=== PATIENT | male | born 1935 | race Caucasian/White ===

== ENCOUNTER → 2016-12-12 | Outpatient (CLI) | payer MEDICARE ==
[~2016-12-12] MED LIST: AC325T; ACHD5005 PO; ALPR.25T PO; ALPR0.25 PO; ALPR0.2550 PO; ASP81TEC PO; ASPI-241 PO; ASPI-933 PO; CALC625T PO; CARB1TAB19 PO; CARB1TAB43 PO; CARB1TAB6 PO; CEFU250T11 PO; CLOP75TA PO; CRB100CT PO; CTLP20T PO; DOCU-161 PO; FENT1PAT11 TP; FENT1PAT60 TD; FERR-74 PO; FISH; FISH OIL 1,2001 EAC1 PO; FISH OIL PO; FISH1200 PO; FNT50TD; FNT75TD TD; FURO-125 PO; FURO20TA4 PO; FURO40TA4 PO; HYDR-31 PO; HYDR-3812 PO; HYDR-3816 PO; HYDR1CAP2 PO; IPRA3AMP INH; ISM30TCR PO; ISOS30TA3 PO; LACT20SO2 PO; LEVO500T80 PO; LVCR25100 PO; MAGN500C15 PO; MELO7.5T PO; METH-336 PO; MTP25TSR PO; MULT-608 PO; MULT-646 PO; MULT1CAP27 PO; NITR0.4T39 SL; NTR.4SL SL; ONDN4T PO; OXYB5TAB9 PO; OXYC-12 PO; OXYC-272 PO; OXYC1CAP3 PO; OXYC5TAB49 PO; PANT40TA3 PO; PARO20TA5 PO; PEG250PW PO; POLY119P5 PO; POTA8CAP9 PO; POTA8TAB6 PO; PRAM0.252 PO; PRAM0.257 PO; PRILOSEC; PRX20T PO; Polyethylene Glycol PO; RISP0.253 PO; RISP1TAB2 PO; RIVA15TA PO; RIVA1PAT TD; RIVA1PAT13 TP; RIVA1PAT9 TD; RIVA20TA PO; ROPI1TAB PO; ROPI1TAB40 PO; SENN-1 PO; SMV20T PO; TAMS0.4C2 PO; WARF2.5T PO; WARF5TAB PO; WRF2.5T PO; WRF5T PO; [UNRECOGNIZED DRUG - CODE] PO
--- OUTSIDE RECORDS SUMMARY | 2016-12-12 11:38 | XMS REPORT | Continuity of Care Document ---
Author Author [facility] Organization [facility] Address Unknown Phone Unavailable Care Team Providers Care Dairy Nutritionist Name Role Phone GERRY JANE MD PCP Insurance Providers Payer Name Policy Number Subscriber Name Relationship Wps Medicare [id number] Sravan Pruitt 20 Self / Same As Patient Blue Cross [facility] Supp [id number] Sravan Pruitt Self / Same As Patient Advance Directives Directive Response Recorded Date/Time Advance Directives Yes 07/11/16 8:56am Health Care Power of Industrial Psychology Teacher Y Celeste Pruitt/ 07/11/16 8:56am Organ Donor Yes 07/11/16 8:56am Resuscitation Status Full Code 07/11/16 8:56am Chief Complaint and Reason for Visit Chief Complaint AMS -? ALEXYS Reason for Visit Chronic atrial fibrillation Elevated Troponin Pneumonia Renal insufficiency Problems Active Problems Medical Problem Onset Date Status AGITATION--POSSIBLE NARCOTIC WITHDRAWL Unknown Acute Abrasion Unknown Acute Agitation Unknown Acute Atrial fibrillation Unknown Acute CHF Unknown Acute Chest pain Unknown Acute Chest pain Unknown Acute Chest pain Unknown Acute Chronic anticoagulation Unknown Acute Chronic atrial fibrillation Unknown Acute Elevated Troponin Unknown Acute Elevated Troponin Unknown Acute Fracture of calcaneus, left, closed Unknown Acute Hemoptysis Unknown Acute Hyperactive Unknown Acute Hyperglycemia Unknown Acute Insomnia Unknown Acute Nausea and vomiting Unknown Acute Parkinson disease Unknown Acute Parkinson disease Unknown Acute Pneumonia Unknown Acute Renal insufficiency Unknown Acute Medications Current Home Medications Medication Dose Units Route Directions Days/Qty Instructions Start Date Carbidopa/Levodopa 1 Ea 1.5 Tab Oral Three Times A Day 30MIN BEFORE LUNCH, SUPPER, AND AT HS 12/03/06 Tamsulosin Hcl 0.4 Mg 0.4 Mg Oral Daily@1800 02/22/16 Alprazolam 0.25 Mg 0.25 Mg Oral Four Times Daily as needed for Anxiety 02/22/16 Sennosides/Docusate Sodium 1 Each 2 Tab Oral Twice A Day MORNING AND NOON 06/19/16 Oxybutynin Chloride 5 Mg 5 Mg Oral Bedtime 06/19/16 Multivits,Th W-Fe,Other Min 1 Each 1 Tab Oral Daily@1200 06/20/16 Calcium Polycarbophil 625 Mg 625 Mg Oral Daily@1200 06/20/16 Rivastigmine 1 Each 13.3 Mg Topical Daily 06/20/16 Fentanyl 1 Each 100 Mcg Topical Every 72 Hours 06/20/16 Furosemide 20 Mg 20 Mg Oral Daily 06/20/16 Potassium Chloride 8 Meq 8 Meq Oral Daily 06/20/16 Paroxetine Hcl 20 Mg 20 Mg Oral Daily@1200 06/20/16 Pramipexole Di-Hcl 0.25 Mg 0.25-0.5 Mg Oral Bedtime as needed for Restless Legs 06/20/16 Hydrocodone/Acetaminophen 1 Each 1-2 Tab Oral Every 6 Hours as needed for Pain 06/20/16 Rivaroxaban 20 Mg 20 Mg Oral Daily@1800 07/11/16 Carbidopa/Levodopa 1 Each 2 Tab Oral Daily 07/11/16 Ipratropium/Albuterol Sulfate (Duoneb) 3 Ml 3 Ml Inhalation Respiratory Every Four Hours 30 Days 07/16/16 Risperidone 0.25 Mg 0.25 Mg Oral Twice A Day 30 Days 07/16/16 Lactulose 20 Gm/30 Ml 10 Gm Oral Twice A Day 30 Days 07/16/16 Pantoprazole Sodium 40 Mg 40 Mg Oral Daily@0700 30 Days 07/16/16 Past Home Medications Medication Directions Ordered Status Fentanyl 1 Ea Patch, 12/03/06 Discontinued [Prilosec] Cap, 12/03/06 Discontinued Acetaminophen 325 Mg Tablet, 12/03/06 Discontinued Acetaminophen/Hydrocodone Bitart 1 Ea Tab, 1 - 2 Tab Oral Qid Prn 12/03/06 Discontinued Alprazolam 0.25 Mg Tablet, 1 Tab Oral Twice Daily And Prn 07/30/10 Discontinued Aspirin 325 Mg Tablet.dr, 325 Mg Oral Daily 07/30/10 Discontinued Citalopram Hydrobromide 20 Mg Tablet, 60 Mg Oral Daily 07/30/10 Discontinued Ropinirole Hcl 1 Mg Tablet, 1 Mg Oral Daily 07/30/10 Discontinued Meloxicam 7.5 Mg Tablet, 7.5 Mg Oral Daily 07/30/10 Discontinued Tamsulosin Hcl 0.4 Mg Cap.sr.24h, 0.4 Mg Oral Daily 07/30/10 Discontinued Fish Oil/Fat No.8/Hrb Comb.137 1,200 Mg Capsule, 1200 Mg Oral Daily 07/30/10 Discontinued Multivitamins 1 Tab Tablet, 1 Tab Oral Daily 07/30/10 Discontinued Nitroglycerin 0.4 Mg Subl, 0.4 Mg Sublingual As Needed 07/30/10 Discontinued Olanzapine 2.5 Mg Tab, 2.5 Mg Oral Daily 07/30/10 Discontinued Oxycodone Hcl/Acetaminophen 1 Each Tablet, 1 Each Oral Every 6 Hours as needed 07/30/10 Discontinued Fentanyl 1 Ea Patch, 75 Mcg Transderm Every 72 Hours 08/01/10 Discontinued Ondansetron Hcl 4 Mg Tab, 4 Mg Oral Every 4HRS as needed 08/01/10 Discontinued Oxycodone Hcl/Acetaminophen 1 Each Capsule, 1 Each Oral Every 4HRS as needed 08/01/10 Discontinued Metoprolol Succinate (Metoprolol Er 25MG) 25 Mg Tab, 25 Mg Oral Daily Discontinued Simvastatin 20 Mg Tab, 20 Mg Oral Bedtime 08/04/10 Discontinued Paroxetine Hcl 20 Mg Tablet, 40 Mg Oral Daily 10/07/10 Discontinued [place]-3 Fatty Acids/Fish Oil 1 Each Capsule, 1 Each Oral 10/07/10 Discontinued [Fish] , 10/07/10 Discontinued [Fish] , 10/07/10 Discontinued [Fish Oil] , 1400 Mg Oral Daily 10/07/10 Discontinued Acetaminophen/Hydrocodone Bitart (Lorcet-Hd) 1 Each Capsule, 1 - 2 Each Oral Every 6 Hours as needed 10/07/10 Discontinued Docusate Sodium 100 Mg Capsule, 100 Mg Oral As Needed 10/07/10 Discontinued Polyethylene Glycol 1 Ea Pack, 1 Ea Oral Bedtime 10/07/10 Discontinued Clopidogrel Bisulfate 75 Mg Tablet, 75 Mg Oral Daily 03/14/11 Discontinued Oxycodone Hcl 5 Mg Tablet, 5 Mg Oral Every 4HRS as needed 03/16/11 Discontinued Carbidopa/Levodopa 1 Each Tab.rapdis, 0.5 Tab Oral Four Times Daily 03/24/12 Discontinued Alprazolam 0.25 Mg Tab.rapdis, 1 Tab Oral Twice Daily And Prn 03/24/12 Discontinued Nitroglycerin 0.4 Mg Subl, 0.4 Mg Sublingual As Needed 03/24/12 Discontinued Alprazolam 0.25 Mg Tablet, 0.5 Mg Oral Bedtime 12/23/12 Discontinued Alprazolam 0.25 Mg Tablet, 0.25 Mg Oral Daily 12/23/12 Discontinued Furosemide (Lasix) 40 Mg Tablet, 40 Mg Oral Daily 12/23/12 Discontinued Isosorbide Mononitrate 30 Mg Tab, 30 Mg Oral Daily@0630 12/23/12 Discontinued Ropinirole Hcl 1 Mg Tablet, 1 Mg Oral Bedtime as needed 12/23/12 Discontinued Aspirin 81 Mg Tabec, 81 Mg Oral Bedtime 12/26/12 Discontinued Cefuroxime Axetil (Ceftin) 250 Mg Tablet, 250 Mg Oral Twice A Day 12/26/12 Discontinued Rivaroxaban 15 Mg Tablet, 15 Mg Oral Daily 12/26/12 Discontinued Warfarin Sodium 2.5 Mg Tablet, 1 Each Oral Daily 09/26/13 Discontinued Carbamazepine 100 Mg Chew, 100 Mg Oral Twice A Day 09/26/13 Discontinued Acetaminophen/Hydrocodone Bitart 1 Each Tablet, 1 Each Oral Every 6 Hours as needed for Pain 11/17/13 Discontinued Warfarin Sodium 5 Mg Tablet, 1.25 Mg Oral Daily 11/17/13 Discontinued Rivastigmine Tartrate 4.6 Mg Patch, 4.6 Mg Transderm Daily 12/07/13 Discontinued Warfarin Sodium 5 Mg Tablet, 5 Mg Oral Fr@18 12/07/13 Discontinued Warfarin Sodium 2.5 Mg Tablet, 2.5 Mg Oral [place]@18 12/07/13 Discontinued Warfarin Sodium 5 Mg Tablet, 5 Mg Oral Mon/Sat11/02/14 Discontinued Warfarin Sodium 2.5 Mg Tablet, 2.5 Mg Oral Sun/e/Sat/Soraya/Sat 11/02/14 Discontinued Oxycodone Hcl/Acetaminophen 1 Each Tablet, 1-2 Each Oral Q4-6H Prn as needed for Pain 11/02/14 Discontinued Pramipexole Di-Hcl 0.25 Mg Tablet, 0.25 Mg Oral Bedtime 05/27/15 Discontinued Hydrocodone Bit/Acetaminophen 1 Tab Tablet, 1 Tab Oral Every 4HRS as needed for Pain 05/27/15 Discontinued [Polyethylene Glycol] 17 Gm Pack, 17 Gm Oral Twice A Day 05/28/15 Discontinued Oxycodone Hcl/Acetaminophen 1 Tab Tablet, 1 Tab Oral Every 4HRS as needed for Pain 05/28/15 Discontinued Tamsulosin Hcl 0.4 Mg Cap.er.24h, 0.4 Mg Oral Daily 12/07/15 Discontinued Warfarin Sodium 2.5 Mg Tablet, 2.5 Mg Oral Daily 12/07/15 Discontinued Hydrocodone/Acetaminophen 1 Each Tablet, 1 Each Oral Every 6 Hours 12/07/15 Discontinued Fentanyl 1 Each Patch.td72, 100 Mcg Transderm Every 72 Hours 02/22/16 Discontinued Rivastigmine 4.6 Mg Patch, 4.6 Mg Transderm Daily 02/22/16 Discontinued Pramipexole Di-Hcl 0.25 Mg Tablet, 0.25 Mg Oral Bedtime 02/22/16 Discontinued Polyethylene Glycol 3350 119 Gm Powder, 17 Gm Oral Twice A Day as needed for Constipation 02/22/16 Discontinued Rivaroxaban 20 Mg Tablet, 20 Mg Oral Daily@1800 02/22/16 Discontinued Multivitamin 1 Each Capsule, 1 Each Oral Daily 02/22/16 Discontinued Methylcellulose 500 Mg Tablet, 500 Mg Oral Daily 02/22/16 Discontinued Potassium Chloride 8 Meq Tablet.er, 8 Meq Oral Daily 06/19/16 Discontinued Furosemide 20 Mg Tablet, 20 Mg Oral Daily 06/19/16 Discontinued Carbidopa/Levodopa 1 Each Tablet, 2 Tab Oral Daily 06/20/16 Discontinued Isosorbide Mononitrate (Imdur) 30 Mg Tab.er.24h, 30 Mg Oral Daily 06/20/16 Discontinued Levofloxacin 500 Mg Tablet, 500 Mg Oral Daily 06/22/16 Discontinued Social History Social History Problem Response Recorded Date/Time Alcohol Use Occasionally Uses 06/19/2016 8:00pm Recreational Drug Use No 06/19/2016 8:00pm Recent Foreign Travel No 07/11/2016 9:05am Recent Infectious Disease Exposure No 07/11/2016 9:05am Hospitalization with Isolation Unknown 07/16/2016 11:04am Sexually Transmitted Disease No 07/11/2016 8:58am HIV/AIDS No 07/11/2016 8:58am Smoking Status Former Smoker 07/11/2016 8:59am Do you dip or chew tobacco? No 12/07/2015 7:38pm Type Used Cigarettes 07/16/2016 11:04am Recent Hopitalizations Yes 07/11/2016 8:58am Sexually Transmitted Disease No 07/11/2016 8:58am Hospitalization with Isolation Unknown 07/16/2016 11:04am Query Response Start Date Stop Date Smoking Status Former Smoker 12/02/1969 Hospital Discharge Instructions Patient Instructions Physician Instructions New, Converted or Re-Newed RX: Other Discharge Diet: Low Sodium Diet, Cardiac Diet Activity as Tolerated: Yes Plan of Care Discharge Date 07/16/16 10:40am Disposition 09 ADMITTED INPATIENT Instructions/Education Provided Bacterial Pneumonia (GEN) Prescriptions See Medication Section Care Plan and Goals See Discharge Instructions Section Functional Status Query Response Date Recorded Patient Orientation Normal For Age July 14, 2016 8:54am Patient Orientation Person Place Eyes Open July 16, 2016 11:04am Comprehension Ability Understands Concepts July 16, 2016 8:40am Allergies, Adverse Reactions, Alerts Allergen Type Severity Reaction Status Last Updated Morphine Allergy Unknown PT TAKES HYDROCODONE @ HOME Active 06/21/16 Gabapentin Allergy Unknown Active 12/24/06 Immunizations No immunization records. Vital Signs Acute Vital Signs Vital Response Date/Time Temperature (Fahrenheit) 97.2 degrees F (97.6 - 99.5) 07/16/2016 6:00am Temperature (Calculated Celsius) 36.41406 degrees C (36.4 - 37.5) 07/16/2016 6:00am Temperature Source Tympanic 07/16/2016 6:00am Pulse Rate (adult) 60 bpm (60 - 90) 07/16/2016 6:00am Respiratory Rate 20 bpm (12 - 24) 07/16/2016 6:00am O2 Sat by Pulse Oximetry 98 % (88 - 100) 07/16/2016 8:40am Blood Pressure 114/56 mm Hg 07/16/2016 6:00am Blood Pressure Mean 75 mm Hg 07/16/2016 6:00am Pain Numeric Pain Scale 0-No Pain 07/16/2016 8:40am Pain Intensity 8 07/12/2016 9:58pm Height (Feet) 5 feet 07/11/2016 9:05am Height (Inches) 5.00 inches 07/11/2016 9:05am Height (Calculated Centimeters) 165.265224 cm 07/11/2016 9:05am Weight (Pounds) 156 pounds 07/16/2016 6:00am Weight (Ounces) 5.0 oz 07/16/2016 6:00am Weight (Calculated Grams) 43268.158 gm 07/16/2016 6:00am Weight (Calculated Kilograms) 70.653339 kilograms 07/16/2016 6:00am Calculated BMI 20.8 07/11/2016 9:05am Capillary Refill Capillary Refill Less Than 3 Seconds 07/16/2016 8:40am Results Laboratory Results Test Name Result Units Flags Reference Collection Date/Time Result Date/ Time Comments White Blood Count 10.0 10^3/uL 4.3-11.0 06/21/2016 5:33am 06/21/2016 5: 55am Red Blood Count 3.38 10^6/uL L 4.35-5.85 06/21/2016 5:33am 06/21/2016 5: 55am Hemoglobin 9.7 G/DL L 13.3-17.7 06/21/2016 5:33am 06/21/2016 5:55am Hematocrit 30 % L 40-54 06/21/2016 5:33am 06/21/2016 5:55am Mean Corpuscular Volume 90 FL 80-99 06/21/2016 5:3306/21/2016 5: 55am Mean Corpuscular Hemoglobin 29 PG 25-34 06/21/2016 5:33am 06/21/2016 5: 55am Mean Corpuscular Hemoglobin Concent 32 G/DL 32-36 06/21/2016 5:33 5:55am Red Cell Distribution Width 15.7 % H 10.0-14.5 06/21/2016 5:33am 2015 5:55am Platelet Count 247 10^3/uL 130-400 06/21/2016 5:33am 06/21/2016 5:55am Mean Platelet Volume 9.5 FL 7.4-10.4 06/21/2016 5:33am 06/21/2016 5: 55am Neutrophils (%) (Auto) 78 % H 42-75 06/21/2016 5:33am 06/21/2016 5:55am Lymphocytes (%) (Auto) 12 % 12-44 06/21/2016 5:06/21/2016 5:55am Monocytes (%) (Auto) 8 % 0-12 06/21/2016 5:06/21/2016 5:55am Eosinophils (%) (Auto) 2 % 0-10 06/21/2016 5:06/21/2016 5:55am Basophils (%) (Auto) 0 % 0-10 06/21/2016 5:06/21/2016 5:55am Neutrophils # (Auto) 7.8 X 10^3 1.8-7.8 06/21/2016 5:06/21/2016 5: 55am Lymphocytes # (Auto) 1.2 X 10^3 1.0-4.0 06/21/2016 5:06/21/2016 5: 55am Monocytes # (Auto) 0.8 X 10^3 0.0-1.0 06/21/2016 5:06/21/2016 5: 55am Eosinophils # (Auto) 0.2 10^3/uL 0.0-0.3 06/21/2016 5:06/21/2016 5 :55am Basophils # (Auto) 0.0 10^3/uL 0.0-0.1 06/21/2016 5:06/21/2016 5: 55am Neutrophils % (Manual) 79 % 06/20/2016 4:52am 06/20/2016 5:43am Band Neutrophils 9 % 06/20/2016 4:52am 06/20/2016 5:43am Lymphocytes % (Manual) 6 % 06/20/2016 4:52am 06/20/2016 5:43am Monocytes % (Manual) 6 % 06/20/2016 4:52am 06/20/2016 5:43am Blood Morphology Comment NORMAL 06/20/2016 4:52am 06/20/2016 5: 43am Prothrombin Time 15.2 SEC H 12.2-14.7 06/19/2016 5:05pm 06/19/2016 5: 30pm INR Comment 1.2 0.8-1.4 06/19/2016 5:05pm 06/19/2016 5:30pm INTERPRETIVE DATA SUGGESTED THERAPEUTIC RANGE FOR INR'S: VENOUS THROMBOSIS, PULMONARY EMBOLISM, OR PREVENTION OF SYSTEMIC EMBOLISM (EG. IN ATRIAL FIBRILLATION): 2.0 - 3.0 MECHANICAL PROSTHETIC HEART VALVES: 2.5 - 3.5* *NOTE: INR'S UP TO 4.5 MAY BE NECESSARY IN SELECTED GROUPS OF HIGH RISK PATIENTS. [employer] CONSENSUS CONFERENCE ON ANTITHROMBOTIC THERAPY (2000). Activated Partial Thromboplast Time 32 SEC 24-35 06/19/2016 5:05pm 5:30pm Sodium Level 138 MMOL/L 135-145 06/21/2016 5:3306/21/2016 6:16am Potassium Level 3.8 MMOL/L 3.6-5.0 06/21/2016 5:3306/21/2016 6:16am Chloride Level 106 MMOL/L 98-107 06/21/2016 5:3306/21/2016 6:16am Carbon Dioxide Level 22 MMOL/L 21-32 06/21/2016 5:3306/21/2016 6: 16am Anion Gap 10 MMOL/L 5-14 06/21/2016 5:3306/21/2016 6:16am Blood Urea Nitrogen 22 MG/DL H 7-18 06/21/2016 5:3306/21/2016 6:16am Creatinine 1.06 MG/DL 0.60-1.30 06/21/2016 5:3306/21/2016 6:16am BUN/Creatinine Ratio 06/21/2016 5:3306/21/2016 6:16am Estimat Glomerular Filtration Rate > 60 06/21/2016 5:332015 6:16am GFR INTERPRETIVE DATA UNITS FOR ESTIMATED GFR (eGFR): mL/min/1.73 M2 REFERENCE RANGE FOR ESTIMATED GFR (eGFR) eGFR NORMAL eGFR >60 MODERATELY DECREASED eGFR 30-59 SEVERLY DECREASED eGFR 15-29 KIDNEY FAILURE <15 (OR DIALYSIS) Glucose Level 110 MG/DL H 70-105 06/21/2016 5:3306/21/2016 6:16am Calcium Level 9.0 MG/DL 8.5-10.1 06/21/2016 5:3306/21/2016 6:16am Total Bilirubin 0.4 MG/DL 0.1-1.0 06/19/2016 5:05pm 06/19/2016 5:33pm Alkaline Phosphatase 95 U/L 40-136 06/19/2016 5:05pm 06/19/2016 5:33pm Aspartate Amino Transf (AST/SGOT) 31 U/L 5-34 06/19/2016 5:05pm 2015 5:33pm Alanine Aminotransferase (ALT/SGPT) 13 U/L 0-55 06/19/2016 5:05pm 06/19 5:33pm Troponin I < 0.30 NG/ML <0.30 06/19/2016 5:05pm 06/19/2016 5:45pm Total Protein 8.2 G/DL 6.4-8.2 06/19/2016 5:05pm 06/19/2016 5:33pm Albumin 4.7 G/DL H 3.2-4.5 06/19/2016 5:05pm 06/19/2016 5:33pm Pending Laboratory Results Test Name Collection Date/Time Microbiology Results Procedure Source Result Collection Date/Time Result Date/Time Blood Culture Peripheral, Iv/Heplock No growth 06/19/2016 6:30pm 2015 2:04pm Blood Culture Peripheral, Lt Ac No growth 06/19/2016 6:35pm 06/20/2016 2: 04pm Pending Microbiology Results Procedure Source Collection Date/Time Procedures Procedure Status Date Provider(s) Tracing only of electrocardiogram Completed 06/19/16 CLAUDIA WEN MD Color Doppler echocardiography Active 07/11/16 KENNEDY JAMES MD Color Doppler echocardiography Active 07/11/16 KENNEDY JAMES MD Color Doppler echocardiography Active 07/11/16 KENNEDY JAMES MD Encounters Encounter Location Arrival/Admit Date Discharge/Depart Date Attending Provider Discharged Inpatient [facility] 07/11/16 5:45am 10:40am DIANNE CURTIS MD Registered Clinic [facility] 07/02/16 3:00pm GERRY JANE MD Discharged Inpatient [facility] 06/19/16 6:24pm 3:35pm GERRY JANE MD Recent Diagnosis Chronic atrial fibrillation Elevated Troponin Pneumonia Renal insufficiency
--- NOTE | 2016-12-12 14:05 | Diagnostic Imaging Report ---
PA and lateral views of the chest. INDICATION: Dyspnea. FINDINGS: There is interstitial thickening in the lungs which may relate to minimal vascular congestion with probably a chronic component. There is no alveolar edema. The heart size is not significantly enlarged. No effusion or pneumothorax. The mediastinum and janell appear unremarkable. There is a pacemaker with a single lead seen. There are sternotomy wires and post CABG changes also noted. IMPRESSION: Prominent interstitial markings may relate to minimal vascular congestion. Dictated by: Dictated on workstation # [id number]
== END ==
LOC: RT 11:34
PROVIDERS: ATTEND Internal Medicine Critical Care Medicine
DX: R06.09 Other forms of dyspnea (principal); R06.83 Snoring
CPT/HCPCS: 71020; 94060; 94726; 94729

== ENCOUNTER 2017-02-27 05:40 | Outpatient (CLI) | payer MEDICARE ==
[~2017-02-27] VITALS: Ht 170.2 cm; Wt 65.8 kg
[~2017-02-27 05:40] MED LIST changes: -ASPI-933 PO; -FERR-74 PO; -MAGN500C15 PO; -NITR0.4T39 SL; -RIVA1PAT9 TD
== END 2017-02-27 10:08 ==
LOC: PREOP 05:40
PROVIDERS: ATTEND Internal Medicine
DX: Z01.818 Encounter for other preprocedural examination (principal); D64.9 Anemia, unspecified

== ENCOUNTER 2017-03-01 09:05 | Day surgery (SDC) | payer MEDICARE ==
[~2017-03-01] VITALS: Ht 170.2 cm; Wt 65.8 kg
--- NOTE | 2017-03-01 09:09 | Pre-Op Note & Conscious Sedat ---
Pre-Operative Progress Note H&P Reviewed The H&P was reviewed, patient examined and no changes noted. Date H&P Reviewed: Mar 01, 2017 Conscious Sedation Pre-Proced ASA Class: 3 Airway Mallampati Classification: (point hope ira appropriate class) I. II. III, IV Lungs Heart ASA score ASA 1: a normal healthy patient ASA 2: a patient with a mild systemic disease (mid diabetes, controlled hypertension, obesity ASA 3: a patient with a severe systemic disease that limits activity (angina , COPD, prior Myocardial infarction) ASA 4: a patient with an incapacitating disease that is a constant threat to life (CHF, renal failure) ASA 5: a moribund patient not expected to survive 24 hrs. (ruptured aneurysm) ASA 6: a declared brain patient whose organs are being harvested. For emergent operations, add the letter E after the classification Grade 2 Sedation Plan: Analgesia, Amnesia, Plan communicated to team members, Discussed options with patient/fam, Discussed risks with patient/fam Note The patient is an appropriate candidate to undergo the planned procedure, sedation, and anesthesia. The patient immediately re-assessed prior to indication. GERRY JANE MD Mar 01, 2017 09:09
[2017-03-01 09:15] VITALS: BP 130/76
[2017-03-01] MEDS ORDERED: LIDOCAINE JELLY 2% (XYLOCAINE) 5 ML TUBE MM PRN (09:15)
[2017-03-01] MEDS ORDERED: D5 LR IV SOLUTION 1,000 ML IV PRN (09:15)
[2017-03-01] MEDS ORDERED: HURRICAINE EXT TUBE (BENZOCAINE) XX PRN (09:15)
[2017-03-01] MEDS ORDERED: FLUMAZENIL (ROMAZICON) 0.1 MG/ML 5 ML VIAL INJ PRN (09:15)
[2017-03-01] MEDS ORDERED: MIDAZOLAM 2 MG/2 ML (VERSED) VIAL IVP PRN (09:15)
[2017-03-01] MEDS ORDERED: NALOXONE 0.4 MG/ML 1 ML (NARCAN) VIAL IVP PRN (09:15)
[2017-03-01] MEDS ORDERED: LIDOCAINE JELLY 2% (XYLOCAINE) 5 ML TUBE ONE (10:10)
[2017-03-01] MEDS ORDERED: MIDAZOLAM 2 MG/2 ML (VERSED) VIAL ONE ×2 (10:11)
[2017-03-01] MEDS ORDERED: fentaNYL INJECTION 100 MCG/2 ML AMP ONE (10:11)
[2017-03-01] MEDS ORDERED: HURRICAINE EXT TUBE (BENZOCAINE) ONE (10:11)
[2017-03-01] MEDS ORDERED: ASPI-933 PO (10:23)
[2017-03-01] MEDS ORDERED: NITR0.4T39 SL (10:23)
[2017-03-01] MEDS ORDERED: MAGN500C15 PO (10:23)
[2017-03-01] MEDS ORDERED: FERR-74 PO (10:23)
[2017-03-01] MEDS ORDERED: RIVA1PAT9 TD (10:23)
[2017-03-01] MEDS ORDERED: ISOS30TA3 PO (10:23)
[2017-03-01] MEDS: fentaNYL INJECTION 100 MCG/2 ML AMP IVP PRN ×2 (10:30→10:35)
[2017-03-01 11:15] VITALS: BP 137/73
[2017-03-01 11:35] VITALS: BP 134/77
[2017-03-01 11:50] VITALS: BP 134/77
--- NOTE | 2017-03-04 08:53 | OPERATIVE REPORT ---
PROCEDURE PHYSICIAN: GERRY JANE DATE OF PROCEDURE: 03/01/2017 EGD performed for diagnostic purposes due to history of iron deficiency anemia and the patient on antiplatelet therapy, as well as anticoagulant therapy in the form of Xarelto for paroxysmal antral fibrillation. PROCEDURE: The patient was placed in left lateral left lateral decubitus position. The endoscope was inserted in the oral cavity under direct visualization, the esophagus was intubated. The scope was passed down the esophagus into stomach, and second portion of the duodenum. Careful inspection was made as the endoscope was withdrawn. The patient tolerated the procedure well. FINDINGS: Proximal and midesophagus were unremarkable. There was a small hiatal hernia present. There was some mild erythema noted at the Z line without evidence for ulceration. No blood was noted in the upper GI tract. The cardia and the fundus were unremarkable. There has been a partial antrectomy present. There was some marginal erosions present. A photograph was taken. There is also marginal hyperemia compatible with alkaline bile reflux. Biopsies were obtained and submitted for histopathology. The duodenal antral anastomosis was otherwise unremarkable. The duodenal segment is unremarkable with no evidence for duodenal erythema or ulceration. No blood was noted in the upper GI tract. Retroflex views of the cardia were unremarkable. ASSESSMENT: 1. Small hiatal hernia is present, without evidence for erosive esophagitis. 2. Postsurgical changes of an antrectomy are present with marginal erosions and evidence for alkaline bile reflux. Biopsies are pending for histopathology and Helicobacter evaluation. The patient was advised to hold Xarelto until Saturday. He will resume iron and continue to monitor his stool, although he was warned that color become darker due to iron therapy. He will be returning to the office in one month with repeat CBC. Job ID: [id number] Dictated Date: 03/01/2017 16:48:49 Biomedical Manager Date: 03/04/2017 08:44:09 / [email or web address]
--- NOTE | 2017-03-06 09:01 | HISTORY AND PHYSICAL ---
DATE OF ADMISSION: 03/01/2017 DICTATING PHYSICIAN: Dr. Meek. REASON FOR ADMISSION: EGD Mr. Hoyos is a 81-year-old white male who was seen in the office on 02/14/2017. This gentleman who is somewhat frail, elderly male with a history of coronary artery disease. He reports that he had been feeling increasingly weak with increased shortness of breath. He denied chest discomfort, palpitations, or lightheadedness. He has a history of paroxysmal atrial fibrillation, coronary artery disease and Parkinson's disease. He also has had a past history of anemia and silent peptic ulcer disease. Had not been aware of any melena or restless leg syndrome. His symptoms have not been under as good control as of late despite taking Mirapex nightly. We did send off blood studies and his hemoglobin was 9.4. His MCV was no lower at 85 and iron parameters were compatible with iron deficiency anemia. His ferritin was low at 13 and iron saturation was low at 14. His BNP level was stable at 256. PHYSICAL EXAMINATION: Revealed a mildly pale white male, who did not appear to be in acute distress. VITAL SIGNS: Blood pressure was 144/68. CHEST: Clear. CV: Revealed a regular rate and rhythm without S3 or S4. No significant murmurs were noted. ABDOMEN: Soft, supple without mass, organomegaly or tenderness. EXTREMITIES: Reveal no cyanosis, clubbing, or edema. ASSESSMENT: For further evaluation of iron deficiency anemia with a past history of peptic ulcer disease, the patient was set-up for EGD evaluation on the . The patient was offered earlier appointment on the but they had preferred a later date. Job ID: [id number] Dictated Date: 02/21/2017 15:37:00 Principal Bioinformatics Specialist Date: 02/22/2017 06:14:35/[email or web address]
--- OUTSIDE RECORDS SUMMARY | 2017-03-24 08:00 | XMS REPORT | Continuity of Care Document ---
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 SEPSIS WITHOUT SEPTIC SHOCK 07/16/2016 DIANNE CURTIS MD Ot S37.30XA UNSPECIFIED INJURY OF URETHRA, INITIAL E 07/16/2016 DIANNE CURTIS MD Ot T43.4X5A ADVERSE EFFECT OF BUTYROPHEN/ THIOTHIXEN 07/16/2016 DIANNE CURTIS MD Ot X58.XXXA EXPOSURE TO OTHER SPECIFIED FACTORS, INI 07/16/2016 DIANNE CURTIS MD Ot Y92.230 PATIENT ROOM IN HOSPITAL PLACE 07/16/2016 DIANNE CURTIS MD Ot Z79.01 WHISKEY REGAUGER (CURRENT) USE OF ANTICOAGULANT 07/16/2016 DIANNE CURTIS MD Ot Z87.891 PERSONAL HISTORY OF NICOTINE DEPENDENCE 07/16/2016 DIANNE CURTIS MD Ot Z95.0 PRESENCE OF CARDIAC PACEMAKER 07/16/2016 DIANNE CURTIS MD Ot Z95.1 PRESENCE OF AORTOCORONARY BYPASS GRAFT 07/18/2016 BIBIANA PARRA MD E Ot F03.90 UNSPECIFIED DEMENTIA WITHOUT BEHAVIORAL 07/18/2016 BIBIANA PARRA MD Ot G20 PARKINSON'S DISEASE 07/18/2016 BIBIANA PARRA MD E Ot I10 ESSENTIAL (PRIMARY) HYPERTENSION 07/18/2016 BIBIANA PARRA MD E Ot 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 07/18/2016 BIBIANA PARRA MD Ot I25.5 ISCHEMIC CARDIOMYOPATHY 07/18/2016 BIBIANA PARRA MD Ot I48.1 PERSISTENT ATRIAL FIBRILLATION 07/18/2016 BIBIANA PARRA MD Ot I48.2 CHRONIC ATRIAL FIBRILLATION 07/18/2016 BIBIANA PARRA MD E Ot 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) HEART FAIL 07/18/2016 BIBIANA PARRA MD E Ot M19.90 UNSPECIFIED OSTEOARTHRITIS, UNSPECIFIED 07/18/2016 BIBIANA PARRA MD E Ot M48.06 SPINAL STENOSIS, LUMBAR REGION 07/18/2016 BIBIANA PARRA MD E Ot R06.89 OTHER ABNORMALITIES OF BREATHING 07/18/2016 BIBIANA PARRA MD E Ot R13.10 DYSPHAGIA, UNSPECIFIED 07/18/2016 VELVET PARRA MDIC E Ot Z95.0 PRESENCE OF CARDIAC PACEMAKER 07/18/2016 BIBIANA PARRA MD E Ot Z95.1 PRESENCE OF AORTOCORONARY BYPASS GRAFT 07/18/2016 BIBIANA PARRA MD E Ot Z99.81 DEPENDENCE ON SUPPLEMENTAL OXYGEN 07/21/2016 BIBIANA PARRA MD Ot F03.90 UNSPECIFIED DEMENTIA WITHOUT BEHAVIORAL 07/21/2016 BIBIANA PARRA MD Ot G20 PARKINSON'S DISEASE 07/21/2016 BIBIANA PARRA MD Ot I10 ESSENTIAL (PRIMARY) HYPERTENSION 07/21/2016 BIBIANA PARRA MD E Ot 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 07/21/2016 BIBIANA PARRA MD Ot I25.5 ISCHEMIC CARDIOMYOPATHY 07/21/2016 BIBIANA PARRA MD E Ot I48.1 PERSISTENT ATRIAL FIBRILLATION 07/21/2016 BIBIANA PARRA MD E Ot I48.2 CHRONIC ATRIAL FIBRILLATION 07/21/2016 BIBIANA PARRA MD E Ot 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) HEART FAIL 07/21/2016 BIBIANA PARRA MD E Ot M19.90 UNSPECIFIED OSTEOARTHRITIS, UNSPECIFIED 07/21/2016 BIBIANA PARRA MD E Ot M48.06 SPINAL STENOSIS, LUMBAR REGION 07/21/2016 BIBIANA PARRA MD E Ot R06.89 OTHER ABNORMALITIES OF BREATHING 07/21/2016 BIBIANA PARRA MD E Ot R13.10 DYSPHAGIA, UNSPECIFIED 07/21/2016 BIBIANA PARRA MD E Ot Z95.0 PRESENCE OF CARDIAC PACEMAKER 07/21/2016 BIBIANA PARRA MD E Ot Z95.1 PRESENCE OF AORTOCORONARY BYPASS GRAFT 07/21/2016 BIBIANA PARRA MD E Ot Z99.81 DEPENDENCE ON SUPPLEMENTAL OXYGEN 07/24/2016 BUCK JEAN, GERRY Chao Ot J18.9 PNEUMONIA, UNSPECIFIED ORGANISM 07/27/2016 BIBIANA PARRA MD E Ot F03.90 UNSPECIFIED DEMENTIA WITHOUT BEHAVIORAL 07/27/2016 BIBIANA PARRA MD Ot G20 PARKINSON'S DISEASE 07/27/2016 BIBIANA PARRA MD Ot I10 ESSENTIAL (PRIMARY) HYPERTENSION 07/27/2016 BIBIANA PARRA MD E Ot 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 07/27/2016 BIBIANA PARRA MD E Ot I25.5 ISCHEMIC CARDIOMYOPATHY 07/27/2016 BIBIANA PARRA MD E Ot I48.1 PERSISTENT ATRIAL FIBRILLATION 07/27/2016 BIBIANA PARRA MD E Ot I48.2 CHRONIC ATRIAL FIBRILLATION 07/27/2016 VELVET PARRA MDIC E Ot 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) HEART FAIL 07/27/2016 BIBIANA PARRA MD E Ot M19.90 UNSPECIFIED OSTEOARTHRITIS, UNSPECIFIED 07/27/2016 VELVET PARRA MDIC E Ot M48.06 SPINAL STENOSIS, LUMBAR REGION 07/27/2016 BIBIANA PARRA MD E Ot R06.89 OTHER ABNORMALITIES OF BREATHING 07/27/2016 BIBIANA PARRA MD E Ot R13.10 DYSPHAGIA, UNSPECIFIED 07/27/2016 BIBIANA PARRA MD E Ot Z95.0 PRESENCE OF CARDIAC PACEMAKER 07/27/2016 BIBIANA PARRA MD E Ot Z95.1 PRESENCE OF AORTOCORONARY BYPASS GRAFT 07/27/2016 BIBIANA PARRA MD E Ot Z99.81 DEPENDENCE ON SUPPLEMENTAL OXYGEN 07/30/2016 BIBIANA PARRA MD E Ot D63.8 ANEMIA IN OTHER CHRONIC DISEASES CLASSIF 07/30/2016 BIBIANA PARRA MD E Ot E87.5 HYPERKALEMIA 07/30/2016 VELVET PARRA MDIC E Ot F03.90 UNSPECIFIED DEMENTIA WITHOUT BEHAVIORAL 07/30/2016 BIBIANA PARRA MD E Ot F32.9 MAJOR DEPRESSIVE DISORDER, SINGLE EPISOD 07/30/2016 VELVET PARRA MDIC E Ot G20 PARKINSON'S DISEASE 07/30/2016 BIBIANA PARRA MD E Ot I10 ESSENTIAL (PRIMARY) HYPERTENSION 07/30/2016 BIBIANA PARRA MD E Ot I12.9 HYPERTENSIVE CHRONIC KIDNEY DISEASE W ST 07/30/2016 BIBIANA PARRA MD E Ot 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 07/30/2016 BIBIANA PARRA MD E Ot I25.5 ISCHEMIC CARDIOMYOPATHY 07/30/2016 BIBIANA PARRA MD E Ot I48.1 PERSISTENT ATRIAL FIBRILLATION 07/30/2016 BIBIANA PARRA MD E Ot I48.2 CHRONIC ATRIAL FIBRILLATION 07/30/2016 BIBIANA PARRA MD E Ot 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) HEART FAIL 07/30/2016 BIBIANA PARRA MD E Ot M19.90 UNSPECIFIED OSTEOARTHRITIS, UNSPECIFIED 07/30/2016 BIBIANA PARRA MD E Ot M48.06 SPINAL STENOSIS, LUMBAR REGION 07/30/2016 BIBIANA PARRA MD E Ot N18.9 CHRONIC KIDNEY DISEASE, UNSPECIFIED 07/30/2016 BIBIANA PARRA MD Ot R06.89 OTHER ABNORMALITIES OF BREATHING 07/30/2016 BIBIANA PARRA MD Ot R13.10 DYSPHAGIA, UNSPECIFIED 07/30/2016 BIBIANA PARRA MD Ot Z79.01 SENIOR CARE (CURRENT) USE OF ANTICOAGULANT 07/30/2016 BIBIANA PARRA MD Ot Z95.0 PRESENCE OF CARDIAC PACEMAKER 07/30/2016 BIBIANA PARRA MD Ot Z95.1 PRESENCE OF AORTOCORONARY BYPASS GRAFT 07/30/2016 BIBIANA PARRA MD Ot Z99.81 DEPENDENCE ON SUPPLEMENTAL OXYGEN 08/02/2016 GERRY JANE MD Ot J18.9 PNEUMONIA, UNSPECIFIED ORGANISM 08/13/2016 GERRY JANE MD Ot N39.0 URINARY TRACT INFECTION, SITE NOT SPECIF 08/13/2016 GERRY JANE MD Ot N39.0 URINARY TRACT INFECTION, SITE NOT SPECIF 08/14/2016 GERRY JANE MD Ot N39.0 URINARY TRACT INFECTION, SITE NOT SPECIF 08/28/2016 GERRY JANE MD Ot G20 PARKINSON'S DISEASE 08/31/2016 GERRY JANE MD Ot G20 PARKINSON'S DISEASE 09/03/2016 GERRY JANE MD Ot N39.0 URINARY TRACT INFECTION, SITE NOT SPECIF 09/18/2016 YE CAMACHO L CARPET BINDER Ot E78.4 OTHER HYPERLIPIDEMIA 09/18/2016 LYMAYADIYE L CARPET BINDER Ot I25.10 ATHSCL HEART DISEASE OF [place] CORONARY 09/18/2016 YE CAMACHO L CARPET BINDER Ot I42.9 CARDIOMYOPATHY, UNSPECIFIED 09/18/2016 YADI CAMACHOHER L CARPET BINDER Ot I48.2 CHRONIC ATRIAL FIBRILLATION 09/18/2016 LYMAYADIYE L CARPET BINDER Ot R06.09 OTHER FORMS OF DYSPNEA 09/19/2016 TAO JEAN FACC, ALI FACP CCDS Ot E78.4 OTHER HYPERLIPIDEMIA 09/19/2016 TAO JEAN FACC, ALI FACP CCDS Ot I25.10 ATHSCL HEART DISEASE OF [place] CORONARY 09/19/2016 TAO JEAN FACC, ALI FACP CCDS Ot I42.9 CARDIOMYOPATHY, UNSPECIFIED 09/19/2016 TAO JEAN FACC, ALI FACP CCDS Ot I48.2 CHRONIC ATRIAL FIBRILLATION 09/19/2016 TAO MD FACC, ALI FACP CCDS Ot R06.09 OTHER FORMS OF DYSPNEA 09/20/2016 YE CAMACHO CARPET BINDER Ot E78.4 OTHER HYPERLIPIDEMIA 09/20/2016 YE CAMACHO CARPET BINDER Ot I25.10 ATHSCL HEART DISEASE OF [place] CORONARY 09/20/2016 YE CAMACHO CARPET BINDER Ot I42.9 CARDIOMYOPATHY, UNSPECIFIED 09/20/2016 YE CAMACHO CARPET BINDER Ot I48.2 CHRONIC ATRIAL FIBRILLATION 09/20/2016 YE CAMACHO CARPET BINDER Ot R06.09 OTHER FORMS OF DYSPNEA 09/24/2016 TAO JEAN FACC, ALI FACP CCDS Ot E78.4 OTHER HYPERLIPIDEMIA 09/24/2016 TAO JEAN FACC, ALI FACP CCDS Ot I25.10 ATHSCL HEART DISEASE OF [place] CORONARY 09/24/2016 TAO JEAN FACC, ALI FACP CCDS Ot I42.9 CARDIOMYOPATHY, UNSPECIFIED 09/24/2016 TAO JEAN FACC, ALI FACP CCDS Ot I48.2 CHRONIC ATRIAL FIBRILLATION 09/24/2016 TAO JEAN FACC, ALI FACP CCDS Ot R06.09 OTHER FORMS OF DYSPNEA 09/29/2016 TAO ZAMANC, ALI FACP CCDS Ot E78.4 OTHER HYPERLIPIDEMIA 09/29/2016 TAO ZAMANC, ALI FACP CCDS Ot I25.10 ATHSCL HEART DISEASE OF [place] CORONARY 09/29/2016 TAO JEAN FACC, ALI FACP CCDS Ot I42.9 CARDIOMYOPATHY, UNSPECIFIED 09/29/2016 TAO ZAMANC, ALI FACP CCDS Ot I48.2 CHRONIC ATRIAL FIBRILLATION 09/29/2016 TAO JEAN FACC, ALI FACP CCDS Ot R06.09 OTHER FORMS OF DYSPNEA 10/09/2016 TAO ZAMANC, ALI FACP CCDS Ot E78.4 OTHER HYPERLIPIDEMIA 10/09/2016 TAO ZAMANC, ALI FACP CCDS Ot I25.10 ATHSCL HEART DISEASE OF [place] CORONARY 10/09/2016 TAO JEAN FACC, ALI FACP CCDS Ot I42.9 CARDIOMYOPATHY, UNSPECIFIED 10/09/2016 TAO JEAN FACC, ALI FACP CCDS Ot I48.2 CHRONIC ATRIAL FIBRILLATION 10/09/2016 TAO ZAMANC, ALI FACP CCDS Ot R06.09 OTHER FORMS OF DYSPNEA 10/15/2016 BUCK JEAN, GERRY Chao Ot G20 PARKINSON'S DISEASE 10/15/2016 BUCK JEAN, GERRY Chao Ot Z91.81 HISTORY OF FALLING 10/19/2016 TAO JEAN FAC, ALI FACP CCDS Ot E78.4 OTHER HYPERLIPIDEMIA 10/19/2016 TAO JEAN FACC, ALI FACP CCDS Ot I25.10 ATHSCL HEART DISEASE OF [place] CORONARY 10/19/2016 TAO JEAN FACC, ALI FACP CCDS Ot I42.9 CARDIOMYOPATHY, UNSPECIFIED 10/19/2016 TAO JEAN FACC, ALI FACP CCDS Ot I48.2 CHRONIC ATRIAL FIBRILLATION 10/19/2016 TAO JEAN FACC, ALI FACP CCDS Ot R06.09 OTHER FORMS OF DYSPNEA 10/31/2016 GERRY JANE MD Ot G20 PARKINSON'S DISEASE 10/31/2016 GERRY JANE MD Ot Z91.81 HISTORY OF FALLING 10/31/2016 GERRY JANE MD Ot G20 PARKINSON'S DISEASE 10/31/2016 GERRY JANE MD Ot Z91.81 HISTORY OF FALLING 11/09/2016 BAIMA, YE L CARPET BINDER Ot E78.4 OTHER HYPERLIPIDEMIA 11/09/2016 BAIMA, YE L CARPET BINDER Ot I25.10 ATHSCL HEART DISEASE OF [place] CORONARY 11/09/2016 BAIMA, YE L CARPET BINDER Ot I42.9 CARDIOMYOPATHY, UNSPECIFIED 11/09/2016 BAIMA, YE L CARPET BINDER Ot I48.2 CHRONIC ATRIAL FIBRILLATION 11/09/2016 BAIMA, YE L CARPET BINDER Ot R06.09 OTHER FORMS OF DYSPNEA 11/14/2016 BAIMA, YE L CARPET BINDER Ot E78.4 OTHER HYPERLIPIDEMIA 11/14/2016 BAIMA, YE L CARPET BINDER Ot I25.10 ATHSCL HEART DISEASE OF [place] CORONARY 11/14/2016 BAIMA, YE L CARPET BINDER Ot I42.9 CARDIOMYOPATHY, UNSPECIFIED 11/14/2016 BAIMA, YE L CARPET BINDER Ot I48.2 CHRONIC ATRIAL FIBRILLATION 11/14/2016 BAIMA, YE L CARPET BINDER Ot R06.09 OTHER FORMS OF DYSPNEA 12/13/2016 DAGMAR MCGRAW DO Ot R06.09 OTHER FORMS OF DYSPNEA 12/13/2016 DAGMAR MCGRAW DO Ot R06.83 SNORING 01/11/2017 DAGMAR MCGRAW DO Ot R06.09 OTHER FORMS OF DYSPNEA 01/11/2017 DAGMAR MCGRAW DO Ot R06.83 SNORING 01/16/2017 DAGMAR MCGRAW DO Ot R06.09 OTHER FORMS OF DYSPNEA 01/16/2017 DAGMAR MCGRAW DO Ot R06.83 SNORING 02/27/2017 TAO JEAN FAC, MAYCO ZAMANP CCDS Ot 427.31 03/01/2017 GERRY JANE MD, Ot D50.9 IRON DEFICIENCY ANEMIA, UNSPECIFIED 03/01/2017 GERRY JANE MD Ot I48.0 PAROXYSMAL ATRIAL FIBRILLATION 03/01/2017 GERRY AJNE MD, Ot K44.9 DIAPHRAGMATIC HERNIA WITHOUT OBSTRUCTION 03/01/2017 GERRY JANE MD, Ot Z79.01 WHISKEY REGAUGER (CURRENT) USE OF ANTICOAGULANT 03/01/2017 GERRY JANE MD, Ot Z79.02 SENIOR CARE (CURRENT) USE OF ANTITHROMBOTI 03/07/2017 GERRY JANE MD, Ot D50.9 IRON DEFICIENCY ANEMIA, UNSPECIFIED 03/07/2017 GERRY JANE MD Ot I48.0 PAROXYSMAL ATRIAL FIBRILLATION 03/07/2017 GERRY JANE MD, Ot K44.9 DIAPHRAGMATIC HERNIA WITHOUT OBSTRUCTION 03/07/2017 GERRY JANE MD, Ot Z79.01 WHISKEY REGAUGER (CURRENT) USE OF ANTICOAGULANT 03/07/2017 GERRY JANE MD, Ot Z79.02 WHISKEY REGAUGER (CURRENT) USE OF ANTITHROMBOTI Procedures Code Description Performed By Performed On 00.40 03/13/2011 00.66 03/13/2011 88.56 03/13/2011 37.22 11/17/2013 88.49 11/17/2013 88.56 11/17/2013 [id number] 07/12/2016 Results Test Result Range Complete blood count (CBC) with automated white blood cell (WBC) differential - 07/11/16 06:40 Blood leukocytes automated count (number/volume) 13.0 10*3/ uL 4.3-11.0 Blood erythrocytes automated count (number/volume) 3.94 10*6 /uL 4.35-5.85 Venous blood hemoglobin measurement (mass/volume) 11.3 g/dL 13.3-17.7 Blood hematocrit (volume fraction) 36 % 40-54 Automated erythrocyte mean corpuscular volume 90 [foz_us] 80-99 Automated erythrocyte mean corpuscular hemoglobin (mass per erythrocyte) 29 pg 25-34 Automated erythrocyte mean corpuscular hemoglobin concentration measurement ( mass/volume) 32 g/dL 32-36 Automated erythrocyte distribution width ratio 15.0 % 10.0-14.5 Automated blood platelet count (count/volume) 389 10*3/uL 130-400 Automated blood platelet mean volume measurement 9.2 [foz_us ] 7.4-10.4 Automated blood neutrophils/100 leukocytes 84 % 42-75 Automated blood lymphocytes/100 leukocytes 8 % 12-44 Blood monocytes/100 leukocytes 8 % 0-12 Automated blood eosinophils/100 leukocytes 0 % 0-10 Automated blood basophils/100 leukocytes 0 % 0-10 Blood neutrophils automated count (number/volume) 11.0 10*3 1.8-7.8 Blood lymphocytes automated count (number/volume) 1.0 10*3 1.0-4.0 Blood monocytes automated count (number/volume) 1.0 10*3 0.0-1.0 Automated eosinophil count 0.0 10*3/uL 0.0-0.3 Automated blood basophil count (count/volume) 0.0 10*3/uL 0.0-0.1 Comprehensive metabolic panel - 07/11/16 06:40 Serum or plasma sodium measurement (moles/volume) 140 mmol/ L 135-145 Serum or plasma potassium measurement (moles/volume) 3.8 mmol/L 3.6-5.0 Serum or plasma chloride measurement (moles/volume) 104 mmol /L 98-107 Carbon dioxide 20 mmol/L 21-32 Serum or plasma anion gap determination (moles/volume) 16 mmol/L 5-14 Serum or plasma urea nitrogen measurement (mass/volume) 27 mg/dL 7-18 Serum or plasma creatinine measurement (mass/volume) 1.33 mg /dL 0.60-1.30 Serum or plasma urea nitrogen/creatinine mass ratio 20 NRG Serum or plasma creatinine measurement with calculation of estimated glomerular filtration rate 52 NRG Serum or plasma glucose measurement (mass/volume) 246 mg/dL 70-105 Serum or plasma calcium measurement (mass/volume) 9.5 mg/dL 8.5-10.1 Serum or plasma total bilirubin measurement (mass/volume) 0.4 mg/dL 0.1-1.0 Serum or plasma alkaline phosphatase measurement (enzymatic activity/volume) 89 U/L 40-136 Serum or plasma aspartate aminotransferase measurement (enzymatic activity/ volume) 33 U/L 5-34 Serum or plasma alanine aminotransferase measurement (enzymatic activity/volume ) 11 U/L 0-55 Serum or plasma protein measurement (mass/volume) 7.7 g/dL 6.4-8.2 Serum or plasma albumin measurement (mass/volume) 4.4 g/dL 3.2-4.5 Magnesium - 07/11/16 06:40 Magnesium 2.1 mg/dL 1.8-2.4 Blood manual differential performed detection - 07/11/16 06:40 Blood monocytes/100 leukocytes 10 % NRG Manual blood segmented neutrophils/100 leukocytes 80 % NRG Manual blood lymphocytes/100 leukocytes 10 % NRG Blood erythrocyte morphology finding identification NORMAL NRG THYROID STIMULATING HORMONE - 07/11/16 06:40 THYROID STIMULATING HORMONE 0.99 u[iU]/mL 0.35-4.94 Serum or plasma folate measurement (mass/volume) - 07/11/16 06:40 Serum or plasma folate measurement (mass/volume) 8.1 % 1.5-24.0 Cyanocobalamin measurement - 07/11/16 06:40 Vitamin B12 747 pg/mL 200-1000 Methicillin resistant Staphylococcus aureus (MRSA) screening culture - 08:05 Methicillin resistant Staphylococcus aureus (MRSA) screening culture NEG NRG Arterial blood gas measurement - 07/11/16 08:25 Blood pCO2 30 mm[Hg] 35-45 Blood pO2 60 mm[Hg] 79-93 Arterial blood bicarbonate measurement (moles/volume) 20 mmol/L 23-27 Arterial blood base excess by calculation -3.3 mmol/L -2.5-2.5 Arterial blood oxygen saturation measurement 93 % 94-100 * Inhaled oxygen flow rate 4 NRG Arterial blood pH measurement with patient temperature correction 7.44 7.37-7.43 Arterial blood carbon dioxide, total measurement (moles/volume) 21.1 mmol/L 21.0-31.0 Body site RT RADIAL NRG Assessment of wrist artery patency prior to arterial puncture YES-POS NRG Setting of ventilation mode NO NRG Measurement of body temperature 97.2 NRG Blood lactic acid measurement (moles/volume) - 07/11/16 08:32 Blood lactic acid measurement (moles/volume) 5.0 mmol/L 0.5-2.0 Serum or plasma troponin i.cardiac measurement (mass/volume) - 07/11/16 08:32 Serum or plasma troponin i.cardiac measurement (mass/volume) 0.58 ng/mL <0.30 Serum or plasma lithium measurement (moles/volume) - 07/11/16 08:32 BNP level 279.8 pg/mL <100.0 PT panel in platelet poor plasma by coagulation assay - 07/11/16 08:32 Prothrombin time (PT) in platelet poor plasma by coagulation assay 19.6 s 12.2-14.7 INR in platelet poor plasma or blood by coagulation assay 1.7 0.8-1.4 Activated partial thromboplastin time (aPTT) in platelet poor plasma bycoagulation assay - 07/11/16 08:32 Activated partial thromboplastin time (aPTT) in platelet poor plasma bycoagulation assay 31 s 24-35 Bacterial blood culture - 07/11/16 08:32 Bacterial blood culture NG NRG Bacterial blood culture - 07/11/16 08:40 Bacterial blood culture NG NRG Complete urinalysis with reflex to culture - 07/11/16 10:25 Urine color determination ELVIA NRG Urine clarity determination SLIGHTLY CLOUDY NRG Urine pH measurement by test strip 5 5- 9 Specific gravity of urine by test strip 1.030 1.016-1.022 Urine protein assay by test strip, semi-quantitative 3+ NEGATIVE Urine glucose detection by automated test strip 3+ NEGATIVE Erythrocytes detection in urine sediment by light microscopy 4+ NEGATIVE Urine ketones detection by automated test strip 1+ NEGATIVE Urine nitrite detection by test strip NEGATIVE NEGATIVE Urine total bilirubin detection by test strip NEGATIVE NEGATIVE Urine urobilinogen measurement by automated test strip (mass/volume) NORMAL NORMAL Urine leukocyte esterase detection by dipstick NEGATIVE NEGATIVE Automated urine sediment erythrocyte count by microscopy (number/high power field) RARE NRG Automated urine sediment leukocyte count by microscopy (number/high power field ) NONE NRG Bacteria detection in urine sediment by light microscopy NEGATIVE NRG Squamous epithelial cells detection in urine sediment by light microscopy RARE NRG Crystals detection in urine sediment by light microscopy NONE NRG Casts detection in urine sediment by light microscopy PRESENT NRG Mucus detection in urine sediment by light microscopy NEGATIVE NRG Complete urinalysis with reflex to culture NO NRG Granular casts detection in urine sediment by light microscopy 2-5 NRG Urine drug screening test - 07/11/16 10:25 Urine acetaminophen detection by screening method POSITIVE NEGATIVE Urine phencyclidine detection by screening method NEGATIVE NEGATIVE Urine benzodiazepines detection by screening method POSITIVE NEGATIVE Urine cocaine detection NEGATIVE NEGATIVE Urine amphetamines detection by screening method NEGATIVE NEGATIVE Urine methamphetamine detection by screening method NEGATIVE NEGATIVE Urine cannabinoids detection by screening method NEGATIVE NEGATIVE Urine opiates detection by screening method POSITIVE NEGATIVE Urine barbiturates detection NEGATIVE NEGATIVE Screening urine tricyclic antidepressants detection NEGATIVE NEGATIVE Urine methadone detection by screening method NEGATIVE NEGATIVE Bacterial urine culture - 07/11/16 10:25 Bacterial urine culture NG NRG Arterial blood gas measurement - 07/11/16 11:23 Blood pCO2 31 mm[Hg] 35-45 Blood pO2 79 mm[Hg] 79-93 Arterial blood bicarbonate measurement (moles/volume) 21 mmol/L 23-27 Arterial blood base excess by calculation -2.8 mmol/L -2.5-2.5 Arterial blood oxygen saturation measurement 97 % 94-100 * Inhaled oxygen flow rate 4 NRG Arterial blood pH measurement with patient temperature correction 7.44 7.37-7.43 Arterial blood carbon dioxide, total measurement (moles/volume) 21.6 mmol/L 21.0-31.0 Body site RT RADIAL NRG Assessment of wrist artery patency prior to arterial puncture YES-POS NRG Setting of ventilation mode NO NRG Measurement of body temperature 98.4 NRG Complete blood count (CBC) with automated white blood cell (WBC) differential - 07/11/16 12:10 Blood leukocytes automated count (number/volume) 9.8 10*3/ uL 4.3-11.0 Blood erythrocytes automated count (number/volume) 3.82 10*6 /uL 4.35-5.85 Venous blood hemoglobin measurement (mass/volume) 11.0 g/dL 13.3-17.7 Blood hematocrit (volume fraction) 34 % 40-54 Automated erythrocyte mean corpuscular volume 90 [foz_us] 80-99 Automated erythrocyte mean corpuscular hemoglobin (mass per erythrocyte) 29 pg 25-34 Automated erythrocyte mean corpuscular hemoglobin concentration measurement ( mass/volume) 32 g/dL 32-36 Automated erythrocyte distribution width ratio 15.0 % 10.0-14.5 Automated blood platelet count (count/volume) 324 10*3/uL 130-400 Automated blood platelet mean volume measurement 9.6 [foz_us ] 7.4-10.4 Automated blood neutrophils/100 leukocytes 86 % 42-75 Automated blood lymphocytes/100 leukocytes 9 % 12-44 Blood monocytes/100 leukocytes 5 % 0-12 Automated blood eosinophils/100 leukocytes 0 % 0-10 Automated blood basophils/100 leukocytes 0 % 0-10 Blood neutrophils automated count (number/volume) 8.4 10*3 1.8-7.8 Blood lymphocytes automated count (number/volume) 0.9 10*3 1.0-4.0 Blood monocytes automated count (number/volume) 0.5 10*3 0.0-1.0 Automated eosinophil count 0.0 10*3/uL 0.0-0.3 Automated blood basophil count (count/volume) 0.0 10*3/uL 0.0-0.1 Whole blood basic metabolic panel - 07/11/16 12:10 Serum or plasma sodium measurement (moles/volume) 144 mmol/ L 135-145 Serum or plasma potassium measurement (moles/volume) 4.5 mmol/L 3.6-5.0 Serum or plasma chloride measurement (moles/volume) 106 mmol /L 98-107 Carbon dioxide 25 mmol/L 21-32 Serum or plasma anion gap determination (moles/volume) 13 mmol/L 5-14 Serum or plasma urea nitrogen measurement (mass/volume) 26 mg/dL 7-18 Serum or plasma creatinine measurement (mass/volume) 1.17 mg /dL 0.60-1.30 Serum or plasma urea nitrogen/creatinine mass ratio 22 NRG Serum or plasma creatinine measurement with calculation of estimated glomerular filtration rate 60 NRG Serum or plasma glucose measurement (mass/volume) 165 mg/dL 70-105 Serum or plasma calcium measurement (mass/volume) 8.9 mg/dL 8.5-10.1 Serum or plasma phosphate measurement (mass/volume) - 07/11/16 12:10 Serum or plasma phosphate measurement (mass/volume) 2.7 mg/ dL 2.3-4.7 Magnesium - 07/11/16 12:10 Magnesium 2.0 mg/dL 1.8-2.4 Blood lactic acid measurement (moles/volume) - 07/11/16 12:10 Blood lactic acid measurement (moles/volume) 4.8 mmol/L 0.5-2.0 Blood lactic acid measurement (moles/volume) - 07/11/16 16:05 Blood lactic acid measurement (moles/volume) 2.9 mmol/L 0.5-2.0 Serum or plasma troponin i.cardiac measurement (mass/volume) - 07/11/16 16:05 Serum or plasma troponin i.cardiac measurement (mass/volume) 1.76 ng/mL <0.30 Capillary blood glucose measurement by glucometer (mass/volume) - 07/11/16 18: 11 Capillary blood glucose measurement by glucometer (mass/volume) 182 mg/dL 70-110 Blood lactic acid measurement (moles/volume) - 07/11/16 19:53 Blood lactic acid measurement (moles/volume) 3.4 mmol/L 0.5-2.0 Whole blood basic metabolic panel - 07/11/16 19:53 Serum or plasma sodium measurement (moles/volume) 141 mmol/ L 135-145 Serum or plasma potassium measurement (moles/volume) 4.4 mmol/L 3.6-5.0 Serum or plasma chloride measurement (moles/volume) 109 mmol /L 98-107 Carbon dioxide 19 mmol/L 21-32 Serum or plasma anion gap determination (moles/volume) 13 mmol/L 5-14 Serum or plasma urea nitrogen measurement (mass/volume) 25 mg/dL 7-18 Serum or plasma creatinine measurement (mass/volume) 1.15 mg /dL 0.60-1.30 Serum or plasma urea nitrogen/creatinine mass ratio 22 NRG Serum or plasma creatinine measurement with calculation of estimated glomerular filtration rate > NRG Serum or plasma glucose measurement (mass/volume) 182 mg/dL 70-105 Serum or plasma calcium measurement (mass/volume) 8.2 mg/dL 8.5-10.1 Blood lactic acid measurement (moles/volume) - 07/12/16 00:34 Blood lactic acid measurement (moles/volume) 2.7 mmol/L 0.5-2.0 Capillary blood glucose measurement by glucometer (mass/volume) - 07/12/16 00: 59 Capillary blood glucose measurement by glucometer (mass/volume) 166 mg/dL 70-110 Complete blood count (CBC) with automated white blood cell (WBC) differential - 07/12/16 04:08 Blood leukocytes automated count (number/volume) 10.9 10*3/ uL 4.3-11.0 Blood erythrocytes automated count (number/volume) 3.61 10*6 /uL 4.35-5.85 Venous blood hemoglobin measurement (mass/volume) 10.3 g/dL 13.3-17.7 Blood hematocrit (volume fraction) 33 % 40-54 Automated erythrocyte mean corpuscular volume 91 [foz_us] 80-99 Automated erythrocyte mean corpuscular hemoglobin (mass per erythrocyte) 29 pg 25-34 Automated erythrocyte mean corpuscular hemoglobin concentration measurement ( mass/volume) 31 g/dL 32-36 Automated erythrocyte distribution width ratio 15.6 % 10.0-14.5 Automated blood platelet count (count/volume) 279 10*3/uL 130-400 Automated blood platelet mean volume measurement 9.9 [foz_us ] 7.4-10.4 Automated blood neutrophils/100 leukocytes 90 % 42-75 Automated blood lymphocytes/100 leukocytes 4 % 12-44 Blood monocytes/100 leukocytes 6 % 0-12 Automated blood eosinophils/100 leukocytes 0 % 0-10 Automated blood basophils/100 leukocytes 0 % 0-10 Blood neutrophils automated count (number/volume) 9.9 10*3 1.8-7.8 Blood lymphocytes automated count (number/volume) 0.4 10*3 1.0-4.0 Blood monocytes automated count (number/volume) 0.6 10*3 0.0-1.0 Automated eosinophil count 0.0 10*3/uL 0.0-0.3 Automated blood basophil count (count/volume) 0.0 10*3/uL 0.0-0.1 Comprehensive metabolic panel - 07/12/16 04:08 Serum or plasma sodium measurement (moles/volume) 140 mmol/ L 135-145 Serum or plasma potassium measurement (moles/volume) 4.4 mmol/L 3.6-5.0 Serum or plasma chloride measurement (moles/volume) 111 mmol /L 98-107 Carbon dioxide 15 mmol/L 21-32 Serum or plasma anion gap determination (moles/volume) 14 mmol/L 5-14 Serum or plasma urea nitrogen measurement (mass/volume) 28 mg/dL 7-18 Serum or plasma creatinine measurement (mass/volume) 1.21 mg /dL 0.60-1.30 Serum or plasma urea nitrogen/creatinine mass ratio 23 NRG Serum or plasma creatinine measurement with calculation of estimated glomerular filtration rate 58 NRG Serum or plasma glucose measurement (mass/volume) 168 mg/dL 70-105 Serum or plasma calcium measurement (mass/volume) 8.1 mg/dL 8.5-10.1 Serum or plasma total bilirubin measurement (mass/volume) 0.8 mg/dL 0.1-1.0 Serum or plasma alkaline phosphatase measurement (enzymatic activity/volume) 60 U/L 40-136 Serum or plasma aspartate aminotransferase measurement (enzymatic activity/ volume) 153 U/L 5-34 Serum or plasma alanine aminotransferase measurement (enzymatic activity/volume ) 28 U/L 0-55 Serum or plasma protein measurement (mass/volume) 5.9 g/dL 6.4-8.2 Serum or plasma albumin measurement (mass/volume) 3.7 g/dL 3.2-4.5 Serum or plasma phosphate measurement (mass/volume) - 07/12/16 04:08 Serum or plasma phosphate measurement (mass/volume) 2.7 mg/ dL 2.3-4.7 Magnesium - 07/12/16 04:08 Magnesium 2.5 mg/dL 1.8-2.4 PT panel in platelet poor plasma by coagulation assay - 07/12/16 04:08 Prothrombin time (PT) in platelet poor plasma by coagulation assay 25.6 s 12.2-14.7 INR in platelet poor plasma or blood by coagulation assay 2.3 0.8-1.4 Activated partial thromboplastin time (aPTT) in platelet poor plasma bycoagulation assay - 07/12/16 04:08 Activated partial thromboplastin time (aPTT) in platelet poor plasma bycoagulation assay 34 s 24-35 Blood lactic acid measurement (moles/volume) - 07/12/16 04:08 Blood lactic acid measurement (moles/volume) 7.2 mmol/L 0.5-2.0 Serum or plasma lithium measurement (moles/volume) - 07/12/16 04:08 BNP level 2009.7 pg/mL <100.0 Serum or plasma troponin i.cardiac measurement (mass/volume) - 07/12/16 04:08 Serum or plasma troponin i.cardiac measurement (mass/volume) 1.14 ng/mL <0.30 Arterial blood gas measurement - 07/12/16 05:10 Blood pCO2 26 mm[Hg] 35-45 Blood pO2 102 mm[Hg] 79-93 Arterial blood bicarbonate measurement (moles/volume) 17 mmol/L 23-27 Arterial blood base excess by calculation -6.4 mmol/L -2.5-2.5 Arterial blood oxygen saturation measurement 98 % 94-100 * Inhaled oxygen flow rate 40% BIPAP NRG Arterial blood pH measurement with patient temperature correction 7.42 7.37-7.43 Arterial blood carbon dioxide, total measurement (moles/volume) 17.7 mmol/L 21.0-31.0 Body site L RAD NRG Assessment of wrist artery patency prior to arterial puncture YES-POS NRG Setting of ventilation mode NO NRG Measurement of body temperature 98.3 NRG Serum or plasma lactate measurement (moles/volume) - 07/12/16 05:44 Serum or plasma lactate measurement (moles/volume) 3.3 mmol/ L 0.5-2.0 Blood lactic acid measurement (moles/volume) - 07/12/16 08:20 Blood lactic acid measurement (moles/volume) 2.9 mmol/L 0.5-2.0 Serum or plasma lactate measurement (moles/volume) - 07/12/16 10:22 Serum or plasma lactate measurement (moles/volume) 2.5 mmol/ L 0.5-2.0 Capillary blood glucose measurement by glucometer (mass/volume) - 07/12/16 13: 30 Capillary blood glucose measurement by glucometer (mass/volume) 166 mg/dL 70-110 Blood lactic acid measurement (moles/volume) - 07/12/16 15:25 Blood lactic acid measurement (moles/volume) 3.2 mmol/L 0.5-2.0 Capillary blood glucose measurement by glucometer (mass/volume) - 07/12/16 17: 48 Capillary blood glucose measurement by glucometer (mass/volume) 119 mg/dL 70-110 Blood lactic acid measurement (moles/volume) - 07/12/16 20:01 Blood lactic acid measurement (moles/volume) 2.6 mmol/L 0.5-2.0 Blood lactic acid measurement (moles/volume) - 07/13/16 00:05 Blood lactic acid measurement (moles/volume) 2.9 mmol/L 0.5-2.0 Automated blood complete blood count (hemogram) panel - 07/13/16 04:10 Blood leukocytes automated count (number/volume) 14.9 10*3/ uL 4.3-11.0 Blood erythrocytes automated count (number/volume) 3.44 10*6 /uL 4.35-5.85 Venous blood hemoglobin measurement (mass/volume) 9.9 g/dL 13.3-17.7 Blood hematocrit (volume fraction) 31 % 40-54 Automated erythrocyte mean corpuscular volume 90 [foz_us] 80-99 Automated erythrocyte mean corpuscular hemoglobin (mass per erythrocyte) 29 pg 25-34 Automated erythrocyte mean corpuscular hemoglobin concentration measurement ( mass/volume) 32 g/dL 32-36 Automated erythrocyte distribution width ratio 15.9 % 10.0-14.5 Automated blood platelet count (count/volume) 239 10*3/uL 130-400 Automated blood platelet mean volume measurement 10.4 [foz_ us] 7.4-10.4 PT panel in platelet poor plasma by coagulation assay - 07/13/16 04:10 Prothrombin time (PT) in platelet poor plasma by coagulation assay 33.2 s 12.2-14.7 INR in platelet poor plasma or blood by coagulation assay 3.2 0.8-1.4 Activated partial thromboplastin time (aPTT) in platelet poor plasma bycoagulation assay - 07/13/16 04:10 Activated partial thromboplastin time (aPTT) in platelet poor plasma bycoagulation assay 34 s 24-35 Blood lactic acid measurement (moles/volume) - 07/13/16 04:10 Blood lactic acid measurement (moles/volume) 1.8 mmol/L 0.5-2.0 Whole blood basic metabolic panel - 07/13/16 04:10 Serum or plasma sodium measurement (moles/volume) 140 mmol/ L 135-145 Serum or plasma potassium measurement (moles/volume) 4.3 mmol/L 3.6-5.0 Serum or plasma chloride measurement (moles/volume) 106 mmol /L 98-107 Carbon dioxide 21 mmol/L 21-32 Serum or plasma anion gap determination (moles/volume) 13 mmol/L 5-14 Serum or plasma urea nitrogen measurement (mass/volume) 39 mg/dL 7-18 Serum or plasma creatinine measurement (mass/volume) 1.29 mg /dL 0.60-1.30 Serum or plasma urea nitrogen/creatinine mass ratio 30 NRG Serum or plasma creatinine measurement with calculation of estimated glomerular filtration rate 54 NRG Serum or plasma glucose measurement (mass/volume) 160 mg/dL 70-105 Serum or plasma calcium measurement (mass/volume) 8.4 mg/dL 8.5-10.1 Serum or plasma phosphate measurement (mass/volume) - 07/13/16 04:10 Serum or plasma phosphate measurement (mass/volume) 3.6 mg/ dL 2.3-4.7 Magnesium - 07/13/16 04:10 Magnesium 2.1 mg/dL 1.8-2.4 Serum or plasma lithium measurement (moles/volume) - 07/13/16 04:10 BNP level 2238.3 pg/mL <100.0 Arterial blood gas measurement - 07/13/16 05:01 Blood pCO2 37 mm[Hg] 35-45 Blood pO2 91 mm[Hg] 79-93 Arterial blood bicarbonate measurement (moles/volume) 24 mmol/L 23-27 Arterial blood base excess by calculation -0.7 mmol/L -2.5-2.5 Arterial blood oxygen saturation measurement 98 % 94-100 * Inhaled oxygen flow rate 40% NRG Arterial blood pH measurement with patient temperature correction 7.43 7.37-7.43 Arterial blood carbon dioxide, total measurement (moles/volume) 24.8 mmol/L 21.0-31.0 Body site RT RADIAL NRG Assessment of wrist artery patency prior to arterial puncture YES-POS NRG Setting of ventilation mode NO NRG Measurement of body temperature 97.2 NRG Blood lactic acid measurement (moles/volume) - 07/13/16 08:10 Blood lactic acid measurement (moles/volume) 1.7 mmol/L 0.5-2.0 Capillary blood glucose measurement by glucometer (mass/volume) - 07/13/16 11: 30 Capillary blood glucose measurement by glucometer (mass/volume) 141 mg/dL 70-110 Blood lactic acid measurement (moles/volume) - 07/14/16 00:40 Blood lactic acid measurement (moles/volume) 1.3 mmol/L 0.5-2.0 Automated blood complete blood count (hemogram) panel - 07/14/16 04:20 Blood leukocytes automated count (number/volume) 13.1 10*3/ uL 4.3-11.0 Blood erythrocytes automated count (number/volume) 3.17 10*6 /uL 4.35-5.85 Venous blood hemoglobin measurement (mass/volume) 9.1 g/dL 13.3-17.7 Blood hematocrit (volume fraction) 29 % 40-54 Automated erythrocyte mean corpuscular volume 91 [foz_us] 80-99 Automated erythrocyte mean corpuscular hemoglobin (mass per erythrocyte) 29 pg 25-34 Automated erythrocyte mean corpuscular hemoglobin concentration measurement ( mass/volume) 32 g/dL 32-36 Automated erythrocyte distribution width ratio 15.5 % 10.0-14.5 Automated blood platelet count (count/volume) 206 10*3/uL 130-400 Automated blood platelet mean volume measurement 10.4 [foz_ us] 7.4-10.4 PT panel in platelet poor plasma by coagulation assay - 07/14/16 04:20 Prothrombin time (PT) in platelet poor plasma by coagulation assay 27.9 s 12.2-14.7 INR in platelet poor plasma or blood by coagulation assay 2.6 0.8-1.4 Blood lactic acid measurement (moles/volume) - 07/14/16 04:20 Blood lactic acid measurement (moles/volume) 1.0 mmol/L 0.5-2.0 Whole blood basic metabolic panel - 07/14/16 04:20 Serum or plasma sodium measurement (moles/volume) 138 mmol/ L 135-145 Serum or plasma potassium measurement (moles/volume) 3.7 mmol/L 3.6-5.0 Serum or plasma chloride measurement (moles/volume) 101 mmol /L 98-107 Carbon dioxide 26 mmol/L 21-32 Serum or plasma anion gap determination (moles/volume) 11 mmol/L 5-14 Serum or plasma urea nitrogen measurement (mass/volume) 40 mg/dL 7-18 Serum or plasma creatinine measurement (mass/volume) 1.27 mg /dL 0.60-1.30 Serum or plasma urea nitrogen/creatinine mass ratio 31 NRG Serum or plasma creatinine measurement with calculation of estimated glomerular filtration rate 55 NRG Serum or plasma glucose measurement (mass/volume) 117 mg/dL 70-105 Serum or plasma calcium measurement (mass/volume) 8.3 mg/dL 8.5-10.1 Serum or plasma phosphate measurement (mass/volume) - 07/14/16 04:20 Serum or plasma phosphate measurement (mass/volume) 2.8 mg/ dL 2.3-4.7 Magnesium - 07/14/16 04:20 Magnesium 1.9 mg/dL 1.8-2.4 Serum or plasma aspartate aminotransferase measurement (enzymatic activity/ volume) - 07/14/16 04:20 Serum or plasma aspartate aminotransferase measurement (enzymatic activity/ volume) 148 U/L 5-34 Serum or plasma alanine aminotransferase measurement (enzymatic activity/volume ) - 07/14/16 04:20 Serum or plasma alanine aminotransferase measurement (enzymatic activity/volume ) 16 U/L 0-55 Serum or plasma lithium measurement (moles/volume) - 07/14/16 04:20 BNP level 1168.3 pg/mL <100.0 Whole blood basic metabolic panel - 07/15/16 04:30 Serum or plasma sodium measurement (moles/volume) 139 mmol/ L 135-145 Serum or plasma potassium measurement (moles/volume) 3.2 mmol/L 3.6-5.0 Serum or plasma chloride measurement (moles/volume) 95 mmol/ L 98-107 Carbon dioxide 32 mmol/L 21-32 Serum or plasma anion gap determination (moles/volume) 12 mmol/L 5-14 Serum or plasma urea nitrogen measurement (mass/volume) 31 mg/dL 7-18 Serum or plasma creatinine measurement (mass/volume) 1.25 mg /dL 0.60-1.30 Serum or plasma urea nitrogen/creatinine mass ratio 25 NRG Serum or plasma creatinine measurement with calculation of estimated glomerular filtration rate 56 NRG Serum or plasma glucose measurement (mass/volume) 109 mg/dL 70-105 Serum or plasma calcium measurement (mass/volume) 8.3 mg/dL 8.5-10.1 Magnesium - 07/15/16 04:30 Magnesium 1.8 mg/dL 1.8-2.4 Automated blood complete blood count (hemogram) panel - 07/16/16 04:30 Blood leukocytes automated count (number/volume) 8.2 10*3/ uL 4.3-11.0 Blood erythrocytes automated count (number/volume) 3.13 10*6 /uL 4.35-5.85 Venous blood hemoglobin measurement (mass/volume) 9.1 g/dL 13.3-17.7 Blood hematocrit (volume fraction) 28 % 40-54 Automated erythrocyte mean corpuscular volume 91 [foz_us] 80-99 Automated erythrocyte mean corpuscular hemoglobin (mass per erythrocyte) 29 pg 25-34 Automated erythrocyte mean corpuscular hemoglobin concentration measurement ( mass/volume) 32 g/dL 32-36 Automated erythrocyte distribution width ratio 15.2 % 10.0-14.5 Automated blood platelet count (count/volume) 203 10*3/uL 130-400 Automated blood platelet mean volume measurement 10.1 [foz_ us] 7.4-10.4 Whole blood basic metabolic panel - 07/16/16 04:30 Serum or plasma sodium measurement (moles/volume) 136 mmol/ L 135-145 Serum or plasma potassium measurement (moles/volume) 3.9 mmol/L 3.6-5.0 Serum or plasma chloride measurement (moles/volume) 93 mmol/ L 98-107 Carbon dioxide 32 mmol/L 21-32 Serum or plasma anion gap determination (moles/volume) 11 mmol/L 5-14 Serum or plasma urea nitrogen measurement (mass/volume) 26 mg/dL 7-18 Serum or plasma creatinine measurement (mass/volume) 1.16 mg /dL 0.60-1.30 Serum or plasma urea nitrogen/creatinine mass ratio 22 NRG Serum or plasma creatinine measurement with calculation of estimated glomerular filtration rate > NRG Serum or plasma glucose measurement (mass/volume) 97 mg/dL 70-105 Serum or plasma calcium measurement (mass/volume) 8.5 mg/dL 8.5-10.1 Magnesium - 07/16/16 04:30 Magnesium 1.9 mg/dL 1.8-2.4 Serum or plasma lithium measurement (moles/volume) - 07/16/16 04:30 BNP level 407.5 pg/mL <100.0 Complete blood count (CBC) with automated white blood cell (WBC) differential - 07/18/16 05:15 Blood leukocytes automated count (number/volume) 7.8 10*3/ uL 4.3-11.0 Blood erythrocytes automated count (number/volume) 3.04 10*6 /uL 4.35-5.85 Venous blood hemoglobin measurement (mass/volume) 8.7 g/dL 13.3-17.7 Blood hematocrit (volume fraction) 28 % 40-54 Automated erythrocyte mean corpuscular volume 92 [foz_us] 80-99 Automated erythrocyte mean corpuscular hemoglobin (mass per erythrocyte) 29 pg 25-34 Automated erythrocyte mean corpuscular hemoglobin concentration measurement ( mass/volume) 31 g/dL 32-36 Automated erythrocyte distribution width ratio 15.2 % 10.0-14.5 Automated blood platelet count (count/volume) 222 10*3/uL 130-400 Automated blood platelet mean volume measurement 9.8 [foz_us ] 7.4-10.4 Automated blood neutrophils/100 leukocytes 65 % 42-75 Automated blood lymphocytes/100 leukocytes 13 % 12-44 Blood monocytes/100 leukocytes 14 % 0-12 Automated blood eosinophils/100 leukocytes 7 % 0-10 Automated blood basophils/100 leukocytes 0 % 0-10 Blood neutrophils automated count (number/volume) 5.1 10*3 1.8-7.8 Blood lymphocytes automated count (number/volume) 1.0 10*3 1.0-4.0 Blood monocytes automated count (number/volume) 1.1 10*3 0.0-1.0 Automated eosinophil count 0.6 10*3/uL 0.0-0.3 Automated blood basophil count (count/volume) 0.0 10*3/uL 0.0-0.1 Whole blood basic metabolic panel - 07/18/16 05:15 Serum or plasma sodium measurement (moles/volume) 138 mmol/ L 135-145 Serum or plasma potassium measurement (moles/volume) 4.0 mmol/L 3.6-5.0 Serum or plasma chloride measurement (moles/volume) 96 mmol/ L 98-107 Carbon dioxide 32 mmol/L 21-32 Serum or plasma anion gap determination (moles/volume) 10 mmol/L 5-14 Serum or plasma urea nitrogen measurement (mass/volume) 25 mg/dL 7-18 Serum or plasma creatinine measurement (mass/volume) 0.91 mg /dL 0.60-1.30 Serum or plasma urea nitrogen/creatinine mass ratio 27 NRG Serum or plasma creatinine measurement with calculation of estimated glomerular filtration rate > NRG Serum or plasma glucose measurement (mass/volume) 98 mg/dL 70-105 Serum or plasma calcium measurement (mass/volume) 8.8 mg/dL 8.5-10.1 Magnesium - 07/18/16 05:15 Magnesium 2.2 mg/dL 1.8-2.4 Automated blood complete blood count (hemogram) panel - 07/23/16 07:30 Blood leukocytes automated count (number/volume) 9.3 10*3/ uL 4.3-11.0 Blood erythrocytes automated count (number/volume) 3.11 10*6 /uL 4.35-5.85 Venous blood hemoglobin measurement (mass/volume) 8.9 g/dL 13.3-17.7 Blood hematocrit (volume fraction) 28 % 40-54 Automated erythrocyte mean corpuscular volume 91 [foz_us] 80-99 Automated erythrocyte mean corpuscular hemoglobin (mass per erythrocyte) 29 pg 25-34 Automated erythrocyte mean corpuscular hemoglobin concentration measurement ( mass/volume) 32 g/dL 32-36 Automated erythrocyte distribution width ratio 15.2 % 10.0-14.5 Automated blood platelet count (count/volume) 253 10*3/uL 130-400 Automated blood platelet mean volume measurement 9.7 [foz_us ] 7.4-10.4 Complete urinalysis with reflex to culture - 07/23/16 18:14 Urine color determination YELLOW NRG Urine clarity determination CLEAR NRG Urine pH measurement by test strip 6 5- 9 Specific gravity of urine by test strip 1.010 1.016-1.022 Urine protein assay by test strip, semi-quantitative NEGATIVE NEGATIVE Urine glucose detection by automated test strip NEGATIVE NEGATIVE Erythrocytes detection in urine sediment by light microscopy NEGATIVE NEGATIVE Urine ketones detection by automated test strip NEGATIVE NEGATIVE Urine nitrite detection by test strip NEGATIVE NEGATIVE Urine total bilirubin detection by test strip NEGATIVE NEGATIVE Urine urobilinogen measurement by automated test strip (mass/volume) NORMAL NORMAL Urine leukocyte esterase detection by dipstick 1+ NEGATIVE Automated urine sediment erythrocyte count by microscopy (number/high power field) RARE NRG Automated urine sediment leukocyte count by microscopy (number/high power field ) [HPF] NRG Bacteria detection in urine sediment by light microscopy NONE NRG Squamous epithelial cells detection in urine sediment by light microscopy 0-2 NRG Crystals detection in urine sediment by light microscopy NONE NRG Casts detection in urine sediment by light microscopy NONE NRG Mucus detection in urine sediment by light microscopy NEGATIVE NRG Complete urinalysis with reflex to culture NO NRG Comprehensive metabolic panel - 07/23/16 21:30 Serum or plasma sodium measurement (moles/volume) 132 mmol/ L 135-145 Serum or plasma potassium measurement (moles/volume) 5.2 mmol/L 3.6-5.0 Serum or plasma chloride measurement (moles/volume) 96 mmol/ L 98-107 Carbon dioxide 26 mmol/L 21-32 Serum or plasma anion gap determination (moles/volume) 10 mmol/L 5-14 Serum or plasma urea nitrogen measurement (mass/volume) 36 mg/dL 7-18 Serum or plasma creatinine measurement (mass/volume) 1.40 mg /dL 0.60-1.30 Serum or plasma urea nitrogen/creatinine mass ratio 26 NRG Serum or plasma creatinine measurement with calculation of estimated glomerular filtration rate 49 NRG Serum or plasma glucose measurement (mass/volume) 109 mg/dL 70-105 Serum or plasma calcium measurement (mass/volume) 9.1 mg/dL 8.5-10.1 Serum or plasma total bilirubin measurement (mass/volume) 0.4 mg/dL 0.1-1.0 Serum or plasma alkaline phosphatase measurement (enzymatic activity/volume) 69 U/L 40-136 Serum or plasma aspartate aminotransferase measurement (enzymatic activity/ volume) 26 U/L 5-34 Serum or plasma alanine aminotransferase measurement (enzymatic activity/volume ) 14 U/L 0-55 Serum or plasma protein measurement (mass/volume) 6.4 g/dL 6.4-8.2 Serum or plasma albumin measurement (mass/volume) 3.5 g/dL 3.2-4.5 Whole blood basic metabolic panel - 07/25/16 04:50 Serum or plasma sodium measurement (moles/volume) 138 mmol/ L 135-145 Serum or plasma potassium measurement (moles/volume) 5.0 mmol/L 3.6-5.0 Serum or plasma chloride measurement (moles/volume) 100 mmol /L 98-107 Carbon dioxide 25 mmol/L 21-32 Serum or plasma anion gap determination (moles/volume) 13 mmol/L 5-14 Serum or plasma urea nitrogen measurement (mass/volume) 30 mg/dL 7-18 Serum or plasma creatinine measurement (mass/volume) 1.26 mg /dL 0.60-1.30 Serum or plasma urea nitrogen/creatinine mass ratio 24 NRG Serum or plasma creatinine measurement with calculation of estimated glomerular filtration rate 55 NRG Serum or plasma glucose measurement (mass/volume) 83 mg/dL 70-105 Serum or plasma calcium measurement (mass/volume) 8.9 mg/dL 8.5-10.1 Complete urinalysis with reflex to culture - 08/10/16 12:30 Urine color determination YELLOW NRG Urine clarity determination CLEAR NRG Urine pH measurement by test strip 5 5- 9 Specific gravity of urine by test strip 1.020 1.016-1.022 Urine protein assay by test strip, semi-quantitative NEGATIVE NEGATIVE Urine glucose detection by automated test strip NEGATIVE NEGATIVE Erythrocytes detection in urine sediment by light microscopy NEGATIVE NEGATIVE Urine ketones detection by automated test strip 1+ NEGATIVE Urine nitrite detection by test strip NEGATIVE NEGATIVE Urine total bilirubin detection by test strip NEGATIVE NEGATIVE Urine urobilinogen measurement by automated test strip (mass/volume) NORMAL NORMAL Urine leukocyte esterase detection by dipstick 1+ NEGATIVE Automated urine sediment erythrocyte count by microscopy (number/high power field) RARE NRG Automated urine sediment leukocyte count by microscopy (number/high power field ) RARE NRG Bacteria detection in urine sediment by light microscopy TRACE NRG Crystals detection in urine sediment by light microscopy NONE NRG Casts detection in urine sediment by light microscopy NONE NRG Mucus detection in urine sediment by light microscopy NEGATIVE NRG Complete urinalysis with reflex to culture NO NRG Encounters ACCT No. Visit Date/Time Discharge Status Pt. Type Provider Facility Loc./Unit Complaint [id number] 03/01/2017 09:05:00 2016 11:50:00 DIS Outpatient GERRY JANE MD [facility] ENDO ANEMIA [id number] 02/27/2017 05:40:00 2016 10:08:00 DIS Outpatient GERRY JANE MD [facility] PREOP EGD FOR ANEMIA [id number] 09/20/2016 10:30:00 2015 11:04:00 DIS Outpatient GERRY JANE MD [facility] REHAB DECONDITIONING; PARKINSONS; FALL RISK [id number] 08/31/2016 10:00:00 2015 17:00:00 DIS Outpatient GERRY JANE MD [facility] REHAB DECONDITIONING; PARKINSONS; FALL RISK [id number] 07/16/2016 10:40:00 2015 13:00:00 DIS Inpatient BIBIANA PARRA MD [facility] IRF IRF- Parkinson's disease. [id number] 07/11/2016 05:45:00 2015 10:40:00 DIS Inpatient EVER JEAN, DIANNE Hood [facility] 4TH AMS -? ALEXYS [id number] 06/19/2016 18:24:00 2015 15:35:00 DIS Inpatient GERRY JANE MD [facility] 4TH PNEUMONIA,HEMOPTYSIS [id number] 02/24/2016 10:04:00 2015 12:30:00 DIS Outpatient GERRY JANE MD [facility] SDC [id number] 02/22/2016 05:51:00 2015 12:38:00 DIS Outpatient GERRY JANE MD [facility] PREOP [id number] 12/07/2015 19:30:00 2015 21:52:00 DIS Emergency PAO CLAUDIO MD [facility] ER [id number] 09/01/2015 01:14:00 2014 23:59:59 CLS Preadmit TAO ZAMANC, ALI FACP CCDS [facility] LAB ATRIAL FIBRILLATION [id number] 08/29/2015 14:07:00 2014 00:01:00 DIS Outpatient TAO JEAN FACC, ALI FACP CCDS [facility] LAB [id number] 08/10/2015 14:44:00 2014 00:01:00 DIS Outpatient TAO JEAN FACC, ALI FACP CCDS [facility] LAB [id number] 05/27/2015 19:30:00 2014 14:15:00 DIS Inpatient JOSEPH KNAPP DOI [facility] ICU [id number] 01/10/2015 13:32:00 2014 00:01:00 DIS Outpatient TAO JEAN FACC, ALI FACP CCDS [facility] LAB [id number] 11/19/2014 09:04:00 2013 00:01:00 DIS Outpatient TAO JEAN FACC, ALI FACP CCDS [facility] LAB [id number] 11/02/2014 08:23:00 2013 10:17:00 DIS Emergency CLAUDIA WEN MD [facility] ER [id number] 09/29/2014 13:02:00 2013 23:59:59 CLS Outpatient TAO JEAN FACC, ALI FACP CCDS [facility] [id number] 05/18/2014 11:06:00 2013 00:01:00 DIS Outpatient TAO JEAN FACC, ALI FACP CCDS [facility] LAB [id number] 04/16/2014 11:54:00 2013 00:01:00 DIS Outpatient TAO JEAN FACRuth, ALI FACP CCDS [facility] LAB [id number] 12/23/2013 11:00:00 2013 23:59:59 CLS Outpatient TAO JEAN FACC, ALI FACP CCDS [facility] [id number] 10/23/2013 13:45:00 2013 00:01:00 DIS Outpatient YE CAMACHO [facility] LAB [id number] 11/28/2013 14:36:00 2013 13:10:00 DIS Inpatient GERRY JANE MD Via [address] [id number] 11/24/2013 06:48:00 2012 14:35:00 DIS Inpatient GERRY JANE MD Via [address] [id number] 11/20/2013 12:37:00 2012 17:40:00 DIS Inpatient GERRY JANE MD Via [facility] [id number] 10/21/2013 20:40:00 2012 22:27:00 DIS Emergency WILMER DELEON DO [facility] [id number] 09/26/2013 09:04:00 2012 10:58:00 DIS Emergency PAO CLAUDIO MD [facility] [id number] 08/01/2013 00:19:00 2012 02:40:00 DIS Emergency WILMER DELEON DO [facility] ER [id number] 06/10/2013 13:57:00 2012 00:01:00 DIS Outpatient GERRY JANE MD [facility] LAB [id number] 07/10/2013 15:09:00 2012 23:59:59 CLS Outpatient [id number] 03/18/2013 12:14:00 2012 00:01:00 DIS Outpatient YE CAMACHO [facility] LAB [id number] 12/12/2016 11:34:00 ACT Outpatient DAGMAR MCGRAW DO [facility] RT DYSPNEA ON EFFORT,SNORING [id number] 09/18/2016 07:32:00 ACT Outpatient TAO JEAN FACC, ALI FACP CCDS [facility] CARD ALLEN,AF,CAD [id number] 09/17/2016 11:51:00 ACT Outpatient YE CAMACHO [facility] CARD ALLEN,AF,CAD,HLP,CARDIOMYOPATHY [id number] 08/10/2016 17:02:00 ACT Outpatient GERRY JANE MD [facility] HH POSSIBLE UTI [id number] 07/02/2016 15:00:00 ACT Outpatient GERRY JANE MD [facility] RAD PNEUMONIA [id number] 12/23/2012 08:09:00 Document Registration [id number] 12/15/2012 11:35:00 Document Registration [id number] 12/12/2012 09:54:00 Document Registration [id number] 12/03/2012 15:41:00 Document Registration [id number] 03/24/2012 02:40:00 Document Registration [id number] 01/24/2012 14:30:00 Document Registration [id number] 11/01/2011 11:05:00 Document Registration [id number] 03/16/2011 06:49:00 Document Registration [id number] 03/13/2011 11:45:00 Document Registration [id number] 03/12/2011 18:47:00 Document Registration [id number] 12/11/2010 11:08:00 Document Registration [id number] 11/27/2010 10:00:00 Document Registration [id number] 11/22/2010 11:49:00 Document Registration [id number] 10/07/2010 01:20:00 Document Registration [id number] 09/08/2010 13:37:00 Document Registration [id number] 08/01/2010 08:14:00 Document Registration [id number] 07/30/2010 21:53:00 Document Registration
== END 2017-03-01 11:50 | disposition home or self-care (01) ==
LOC: DELPENDDIS → ENDO 09:05
PROVIDERS: ATTEND Internal Medicine
DX: D50.9 Iron deficiency anemia, unspecified (principal); K44.9 Diaphragmatic hernia without obstruction or gangrene; I48.0 Paroxysmal atrial fibrillation; Z79.01 Long term (current) use of anticoagulants; Z79.02 Long term (current) use of antithrombotics/antiplatelets
CPT/HCPCS: 88305

== ENCOUNTER 2017-08-16 21:48 | Emergency (ER) | payer MEDICARE ==
[~2017-08-16] VITALS: Ht 170.2 cm; Wt 65.3 kg
[~2017-08-16 21:48] MED LIST changes: +ASPI-933 PO; +FENT1PAT11 TD; -FENT1PAT11 TP; +FERR-74 PO; +MAGN500C15 PO; +NITR0.4T39 SL; +RIVA1PAT9 TD
[2017-08-16] MEDS ORDERED: fentaNYL INJECTION 100 MCG/2 ML AMP IVP STA (22:05)
--- NOTE | 2017-08-16 22:11 | ED Back Pain ---
General Chief Complaint: General Problems/Pain Stated Complaint: ANXIETY Nursing Triage Note: PT TO ED 8 PER AMB W/ ET SMALL CHILD FOR C/O CHRONIC BACK PAIN/GENERALIZED PAIN. PT ET BOTH STATE PT IS "GOING THROUGH WITHDRAWEL HIS FENTANYL PATCH IS 'BAD'". PT VERY AGITATED, PACING, UNABLE TO SIT STILL, REFUSES TO SIT FOR VITALS, DEMANDING A DR TO "GIVE HIM A PAIN SHOT NOW." Nursing Sepsis Screen: No Definite Risk Source of Information: Patient Exam Limitations: No Limitations History of Present Illness Time Seen by Provider: 22:06 Initial Comments Patient presents to ER by private conveyance with his fabio with chief complaint of severe back pain. He says he has had chronic spinal stenosis for several years and has been on a fentanyl patch 100 g an hour as well as hydrocodone for breakthrough pain. He says he does not typically use more than 2 bottles hydrocodone a year. He says for times in the many years that he's been on the dental patch she's had this happen where he feels like he goes into withdrawal after starting a new patch. He says he put the latest patch on this afternoon and was driving home from a ball game when the back pain began to get worse. He started having some numbness and tingling in his bilateral forearms and hands. He denies any recent falls, MVC, trauma. He says in the past she's always come to the ER where they have given him some IV fentanyl to get him stabilized and then he can go home and get a new patch. He denies nausea vomiting fever or chills rash diarrhea shakes. He does have a history of Parkinson's which makes him unstable on his feet. He did not put any lotion on before putting the patch on and has been rotating the site every time. He has not had any diarrhea however he did have a bowel movement today which was normal. He uses Senokot and MiraLAX to stay regular. He says his last, prior to that was 14 days. Allergies and Home Medications Allergies Coded Allergies: gabapentin (Verified Allergy, Unknown, 02/27/17) morphine (Verified Allergy, Unknown, PT TAKES HYDROCODONE @ HOME, 02/27/17) Home Medications Alprazolam 0.25 Mg Tablet, 0.25 MG PO QID PRN for ANXIETY, (Reported) Aspirin 81 Mg Tablet.dr, 81 MG PO DAILY, (Reported) Calcium Polycarbophil 625 Mg Tablet, 625 MG PO DAILY@1200, (Reported) Carbidopa/Levodopa 1 Each Tablet, 2 TAB PO DAILY, (Reported) Fentanyl 1 Each Patch.td72, 100 MCG TP EVERY 72 HOURS, (Reported) Ferrous Sulfate 325 Mg Tablet, 325 MG PO DAILY, (Reported) Hydrocodone/Acetaminophen 1 Each Tablet, 1-2 TAB PO Q6H PRN for PAIN, (Reported) Isosorbide Mononitrate 30 Mg Tab.er.24h, 30 MG PO DAILY, (Reported) Levodopa/Carbidopa 1 Ea Tab, 1.5 TAB PO TID, (Reported) 30MIN BEFORE LUNCH, SUPPER, AND AT HS Magnesium Oxide 500 Mg Capsule, 2,560 MG PO DAILY, (Reported) Multivits,-,Other Min 1 Each Tablet, 1 TAB PO DAILY@1200, (Reported) Nitroglycerin 0.4 Mg Tab.subl, 0.4 MG SL PRN, (Reported) Oxybutynin Chloride 5 Mg Tablet, 5 MG PO HS, (Reported) Pantoprazole Sodium 40 Mg Tablet.dr, 40 MG PO DAILY@0700, #30 Prescribed by: BIBIANA PARRA on 07/30/16 1117 Paroxetine HCl 20 Mg Tablet, 20 MG PO DAILY@1200, (Reported) Pramipexole Di-HCl 0.25 Mg Tablet, 0.25-0.5 MG PO HS PRN for RESTLESS LEGS, ( Reported) Rivaroxaban 20 Mg Tablet, 20 MG PO DAILY@1800, (Reported) Rivastigmine 13.3 Mg Patch, 13.3 MG TD DAILY, (Reported) Sennosides/Docusate Sodium 1 Each Tablet, 2 TAB PO BID, (Reported) MORNING AND NOON Tamsulosin HCl 0.4 Mg Cap.er.24h, 0.4 MG PO DAILY@1800, (Reported) Constitutional: No chills, No diaphoresis, No fever, No malaise EENTM: No ear pain, No double vision Respiratory: No cough, No short of breath Cardiovascular: No chest pain, No palpitations Gastrointestinal: No abdominal pain, constipation, No diarrhea Genitourinary: No discharge, No dysuria Musculoskeletal: No joint pain, No joint swelling Skin: No pruritus, No rash Psychiatric/Neurological: Denies Headache, Denies Numbness, Denies Paresthesia Past Tawjyqp-Xdglup-Lgdbqk Hx Patient Social History Alcohol Use: Denies Use Number of Drinks Today: AA Alcohol Beverage of Choice: Beer Recreational Drug Use: No Smoking Status: Former Smoker Type Used: Cigarettes Former Smoker, Quit: Feb 27, 1979 Recent Foreign Travel: No Contact w/Someone Who Travel: No Recent Infectious Disease Expo: No Recent Hopitalizations: Yes (07/2016 PNEUMONIA) Physical Abuse: No Sexual Abuse: No Mistreated: No Fear: No Immunizations Up To Date Tetanus Booster (TDap): Unknown PED Vaccines UTD: Yes Date of Pneumonia Vaccine: Feb 17, 2014 Date of Influenza Vaccine: Sep 10, 2016 Seasonal Allergies Seasonal Allergies: No Surgeries History of Surgeries: Yes ( TEETH PULLED, ULCER SX, BACK SX X2) Surgeries: Abdominal, Appendectomy, CABG, Orthopedic, Pacemaker Respiratory History of Respiratory Disorde: No Respiratory Disorders: Pneumonia Currently Using CPAP: No Currently Using BIPAP: No Cardiovascular History of Cardiac Disorders: Yes (PACEMAKER. CAROTID DISEASE. 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 AV BLOCK. RBBB) Cardiac Disorders: Atrial Fibrillation, Coronary Artery Disease, Heart Attack, High Cholesterol, Hypertension Neurological History of Neurological Disord: Yes (HX acute dementia) Neurological Disorders: Dementia, Parkinson's Disease Reproductive System Hx Reproductive Disorders: No Sexually Transmitted Disease: No HIV/AIDS: No Genitourinary Genitourinary Disorders: Kidney Stones, Renal Failure Gastrointestinal History of Gastrointestinal Di: Yes Gastrointestinal Disorders: Gastroesophageal Reflux, Chronic Constipation, Ulcer Musculoskeletal History of Musculoskeletal Dis: Yes (CHRONIC GENERALIZED PAIN. CHRONIC LEG CRAMPS, spinal stenosis) Musculoskeletal Disorders: Arthritis, Back Injury, Chronic Back Pain Endocrine History of Endocrine Disorders: No HEENT Loss of Vision: Bilateral Hearing Impairment: Hard of Hearing Cancer History of Cancer: No Psychosocial History of Psychiatric Problem: Yes (hx of dementia/zain) Behavioral Health Disorders: Anxiety Suicide Risk Score: 0 Integumentary History of Skin or Integumenta: No Blood Transfusions History of Blood Disorders: No Adverse Reaction to a Blood Tr: No Family Medical History Significant Family History: No Pertinent Family Hx Family Medial History: Cancer 03 FATHER, Onset:60 years & older Cancer of colon 09 BROTHER, Onset:60 years & older Congestive heart failure 03 MOTHER, Onset:60 years & older 09 BROTHER, Onset:60 years & older Family history: Diabetes mellitus 09 BROTHER, Onset:50's - 60 Myocardial infarction 09 BROTHER (colon ca) No Family History of: Congenital heart disease Physical Exam Vital Signs Vital Sign - Last 12Hours 08/16/17 21:48 Temp 97.8 Pulse 86 Resp 24 B/P (MAP) 207/128 Pulse Ox 96 O2 Delivery Room Air Capillary Refill : Less Than 3 Seconds General Appearance: WD/WN, Anxious HEENT: PERRL/EOMI, Pharynx Normal Neck: Full Range of Motion, Non Tender, Supple Cardiovascular: Regular Rate, Rhythm, No Edema, No Murmur, Normal Peripheral Pulses Respiratory: Chest Non Tender, Lungs Clear, Normal Breath Sounds Peripheral Pulses: 2+ Radial Pulses (R), 2+ Radial Pulses (L) Gastrointestinal: Normal Bowel Sounds, Non Tender, Soft Extremity: Normal Capillary Refill, No Pedal Edema Neurologic/Psychiatric: Alert, Oriented x3 Skin: Normal Color, Warm/Dry Progress/Results/Core Measures Results/Orders My Orders Orders - MICHELL HAQ Fentanyl Injection (Sublimaze Injection (08/16/17 22:05) Vital Signs/I&O Vital Sign - Last 12Hours 08/16/17 21:48 Temp 97.8 Pulse 86 Resp 24 B/P (MAP) 207/128 Pulse Ox 96 O2 Delivery Room Air Blood Pressure Mean: 154 Departure Impression Impression: Primary Impression: AGITATION--POSSIBLE NARCOTIC WITHDRAWL Disposition: 01 HOME, SELF-CARE Condition: Stable Departure-Patient Inst. Decision time for Depature: 22:33 Referrals: GERRY JANE MD (PCP/Family) Primary Care Physician Add. Discharge Instructions: Go home and switch your fentanyl patch take the old patch off and put it back in the box as well as put new patch on in a different spot. Take hydrocodone if you needed for breakthrough pain and then plan on tomorrow morning going to the pharmacy and exchanging that box for another box patches. They have any other concerns he may return here or to your primary care physician. Please be careful as to use this medication can cause you to have a higher risk of falls. All discharge instructions reviewed with patient and/or family. Voiced understanding. Copy Copies To 1: GERRY JANE MD, TITUS J Aug 16, 2017 22:11
[2017-08-16 22:36] VITALS: BP 158/70
== END 2017-08-16 22:36 | disposition home or self-care (01) ==
LOC: EDUNIT# 21:48 → ER 21:49
DX: R45.1 Restlessness and agitation (principal); I48.91 Unspecified atrial fibrillation; I25.10 Atherosclerotic heart disease of native coronary artery without angina pectoris; I25.2 Old myocardial infarction; E78.00 Pure hypercholesterolemia, unspecified; I10 Essential (primary) hypertension; G20 Parkinson's disease; F03.90 Unspecified dementia, unspecified severity, without behavioral disturbance, psychotic disturbance, mood disturbance, and anxiety; K21.9 Gastro-esophageal reflux disease without esophagitis; M19.90 Unspecified osteoarthritis, unspecified site; F41.9 Anxiety disorder, unspecified; Z82.49 Family history of ischemic heart disease and other diseases of the circulatory system; Z79.82 Long term (current) use of aspirin; Z87.442 Personal history of urinary calculi; Z80.0 Family history of malignant neoplasm of digestive organs; Z87.19 Personal history of other diseases of the digestive system; Z79.01 Long term (current) use of anticoagulants; Z87.891 Personal history of nicotine dependence; Z87.01 Personal history of pneumonia (recurrent); Z95.1 Presence of aortocoronary bypass graft; Z95.0 Presence of cardiac pacemaker; Z90.89 Acquired absence of other organs
CPT/HCPCS: 96372; 99284

== ENCOUNTER 2017-10-31 12:24 | Inpatient (IN) | payer MEDICARE ==
[~2017-10-31] VITALS: Ht 170.2 cm; Wt 66.3 kg
[2017-10-31] MEDS ORDERED: NITROGLYCERIN 0.4 MG SL TABS BTL 25'S SL PRN ×2 (12:45→15:45)
[2017-10-31] MEDS ORDERED: ASPIRIN 81 MG CHEW (CHILDREN'S ASA) PO ONE (12:45)
[2017-10-31 12:52] LABS: BASOPHILS % (AUTO) 0 % (0-10); EOSINOPHILS % (AUTO) 0 % (0-10); LYMPHOCYTES # (AUTO) 0.6 X 10^3 (1.0-4.0); LYMPHOCYTES % (AUTO) 4 % (12-44); MEAN CORPUSCULAR HEMOGLOBIN 32 PG (25-34); MEAN CORPUSCULAR HGB CONC 33 G/DL (32-36); MEAN CORPUSCULAR VOLUME 96 FL (80-99); MEAN PLATELET VOLUME 9.8 FL (7.4-10.4); MONOCYTES # (AUTO) 1.2 X 10^3 (0.0-1.0); MONOCYTES % (AUTO) 8 % (0-12); NEUTROPHILS % (AUTO) 88 % (42-75); PLATELET COUNT 244 10^3/uL (130-400); RED BLOOD COUNT 4.37 10^6/uL (4.35-5.85); RED CELL DISTRIBUTION WIDTH 12.6 % (10.0-14.5); WHITE BLOOD COUNT 15.8 10^3/uL (4.3-11.0)
[2017-10-31 12:57] LABS: INR 1.3 (0.8-1.4); PROTHROMBIN TIME PATIENT 16.5 SEC (12.2-14.7)
[2017-10-31 13:01] LABS: ALANINE AMINOTRANSFERASE 12 U/L (0-55); ALBUMIN 4.5 GM/DL (3.2-4.5); ANION GAP 10 MMOL/L (5-14); ASPARTATE AMINO TRANSFERASE 29 U/L (5-34); BILIRUBIN,TOTAL 0.8 MG/DL (0.1-1.0); BLOOD UREA NITROGEN 27 MG/DL (7-18); BUN/CREATININE RATIO 22; CALCIUM 9.6 MG/DL (8.5-10.1); CARBON DIOXIDE 28 MMOL/L (21-32); CHLORIDE 99 MMOL/L (98-107); CREATININE SERUM 1.23 MG/DL (0.60-1.30); GFR ESTIMATED 57; GLUCOSE 175 MG/DL (70-105); POTASSIUM 4.1 MMOL/L (3.6-5.0); SODIUM 137 MMOL/L (135-145); TOTAL PROTEIN 8.2 GM/DL (6.4-8.2)
--- NOTE | 2017-10-31 13:05 | Diagnostic Imaging Report ---
Portable upright radiograph of the chest. INDICATION: Chest pain. COMPARISON: 12/12/2016. FINDINGS: There is focal infiltrate or atelectasis in the left lung base. The right lung is clear. The heart size is at the upper limits of normal. No effusion or pneumothorax. The mediastinum and janell appear unremarkable. There is a pulse generator with a single cardiac lead seen. Sternotomy wires are noted. Surgical clips in the upper abdomen are also seen. IMPRESSION: There is mild left basilar infiltrate or atelectasis seen. Borderline cardiac size. Dictated by: Dictated on workstation # [id number]
[2017-10-31 13:09] LABS: MYOGLOBIN SERUM 89.7 NG/ML (10.0-92.0)
[2017-10-31 13:13] LABS: BAND NEUTROPHILS 6 %; LYMPHOCYTES % (MANUAL) 2 %; NEUTROPHILS % (MANUAL) 81 %
[2017-10-31] MEDS ORDERED: NS (IVPB) 100 ML ONE (13:54)
[2017-10-31] MEDS ORDERED: fentaNYL INJECTION 100 MCG/2 ML AMP IVP STA (13:58)
[2017-10-31] MEDS ORDERED: NS IV 500 ML 500 ML IV ONE (13:58)
[2017-10-31] MEDS ORDERED: PIPERACILLIN/TAZO 4.5 GM VIAL (ZOSYN) IV ONE (14:00)
--- NOTE | 2017-10-31 14:06 | ED General ---
General Chief Complaint: Chest Pain Stated Complaint: CP Nursing Triage Note: PT REPORTS CHEST PAIN FOR "AWHILE". HE DENIES RADIATION, SOA, OR N/V. PT HAS SIGNIFICANT CARDIAC HX. HIS STATES HE HAD A CAROTID US APPROX 1 WEEK AGO. Nursing Sepsis Screen: No Definite Risk Source of Information: Patient Exam Limitations: No Limitations History of Present Illness Time Seen by Provider: 12:26 Initial Comments Here with report of chest pain that has been going on since yesterday. Had an episode 2 weeks ago that lasted a full day. Last night he reports that he got hot and then cold. He states that he was chilled so much that he had an increase the heat. This morning he has been having hot and cold chills and he has been coughing. Unsure if he's had fever. Has significant history of multiple episodes of pneumonia. Denies nausea, vomiting, sweating. Reports that he is taking his meds as directed. Timing/Duration: 1-2 Days Severity: Moderate Associated Systoms: Chest Pain (left-sided and nonradiating and persistent. Reports as an ache.), Cough, Fever/Chills, No Nausea/Vomiting, Shortness of Air , No Weakness Allergies and Home Medications Allergies Coded Allergies: gabapentin (Verified Allergy, Unknown, 02/27/17) morphine (Verified Allergy, Unknown, PT TAKES HYDROCODONE @ HOME, 02/27/17) Home Medications Aspirin 81 Mg Tablet.dr, 81 MG PO HS, (Reported) Calcium Polycarbophil 625 Mg Tablet, 625 MG PO DAILY, (Reported) Carbidopa/Levodopa 1 Each Tablet, 2 TAB PO DAILY, (Reported) Carbidopa/Levodopa 1 Each Tablet, 1.5 MG PO 1200,1800,2100, (Reported) Fentanyl 1 Each Patch.td72, 100 MCG TD Q72H, (Reported) Folic Acid/Multivit-Min/Lutein 1 Each Tab.chew, 1 TAB.CHEW PO BID, (Reported) Hydrocodone/Acetaminophen 1 Each Tablet, 1-2 TAB PO Q6H PRN for PAIN-MODERATE, ( Reported) Isosorbide Mononitrate 30 Mg Tab.er.24h, 30 MG PO DAILY, (Reported) Magnesium Oxide 250 Mg Tablet, 250 MG PO DAILY, (Reported) Oxybutynin Chloride 5 Mg Tablet, 5-10 MG PO HS, (Reported) Pantoprazole Sodium 40 Mg Tablet.dr, 40 MG PO DAILY, (Reported) Paroxetine HCl 20 Mg Tablet, 40 MG PO 1200, (Reported) TAKES 2 (20MG) TABLETS Pramipexole Di-HCl 1 Mg Tablet, 1 MG PO BID PRN for RESLESS LEGS, (Reported) Rivaroxaban 20 Mg Tablet, 20 MG PO 1800, (Reported) Rivastigmine 1 Each Patch.td24, 13.3 MG TD 1900, (Reported) Sennosides/Docusate Sodium 1 Each Tablet, 2 TAB PO 0800,1200, (Reported) Tamsulosin HCl 0.4 Mg Cap.er.24h, 0.4 MG PO 1800, (Reported) Constitutional: see HPI, chills, No diaphoresis, fever, weakness EENTM: no symptoms reported Respiratory: see HPI, cough, short of breath Cardiovascular: chest pain, No edema, No palpitations Gastrointestinal: no symptoms reported Genitourinary: no symptoms reported Musculoskeletal: see HPI, back pain, muscle pain Skin: no symptoms reported All Other Systems Reviewed Negative Unless Noted: Yes Past Twunfjh-Kzxmmn-Dfmyih Hx Patient Social History Alcohol Use: Occasionally Uses Number of Drinks Today: AA Alcohol Beverage of Choice: Beer Recreational Drug Use: No Smoking Status: Former Smoker Type Used: Cigarettes Former Smoker, Quit: Feb 27, 1979 2nd Hand Smoke Exposure: No Recent Foreign Travel: No Contact w/Someone Who Travel: No Recent Infectious Disease Expo: No Recent Hopitalizations: Yes (07/2016 PNEUMONIA) Physical Abuse: No Sexual Abuse: No Immunizations Up To Date Tetanus Booster (TDap): Unknown PED Vaccines UTD: Yes Date of Pneumonia Vaccine: Feb 17, 2014 Date of Influenza Vaccine: Sep 10, 2016 Seasonal Allergies Seasonal Allergies: No Surgeries History of Surgeries: Yes ( TEETH PULLED, ULCER SX, BACK SX X2) Surgeries: Abdominal, Appendectomy, CABG, Orthopedic, Pacemaker Respiratory History of Respiratory Disorde: No Respiratory Disorders: Pneumonia Currently Using CPAP: No Currently Using BIPAP: No Cardiovascular History of Cardiac Disorders: Yes (PACEMAKER. CAROTID DISEASE. 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 AV BLOCK. RBBB) Cardiac Disorders: Atrial Fibrillation, Coronary Artery Disease, Heart Attack, High Cholesterol, Hypertension Neurological History of Neurological Disord: Yes (HX acute dementia) Neurological Disorders: Dementia, Parkinson's Disease Reproductive System Hx Reproductive Disorders: No Sexually Transmitted Disease: No HIV/AIDS: No Genitourinary Genitourinary Disorders: Kidney Stones, Renal Failure Gastrointestinal History of Gastrointestinal Di: Yes Gastrointestinal Disorders: Gastroesophageal Reflux, Chronic Constipation, Ulcer Musculoskeletal History of Musculoskeletal Dis: Yes (CHRONIC GENERALIZED PAIN. CHRONIC LEG CRAMPS, spinal stenosis) Musculoskeletal Disorders: Arthritis, Back Injury, Chronic Back Pain Endocrine History of Endocrine Disorders: No HEENT Loss of Vision: Bilateral Hearing Impairment: Hard of Hearing Cancer History of Cancer: No Psychosocial History of Psychiatric Problem: Yes (hx of dementia/zain) Behavioral Health Disorders: Anxiety Suicide Risk Score: 0 Integumentary History of Skin or Integumenta: No Blood Transfusions History of Blood Disorders: No Adverse Reaction to a Blood Tr: No Reviewed Nursing Assessment Reviewed/Agree w Nursing PMH: Yes Family Medical History Significant Family History: No Pertinent Family Hx Family Medial History: Cancer 03 FATHER, Onset:60 years & older Cancer of colon 09 BROTHER, Onset:60 years & older Congestive heart failure 03 MOTHER, Onset:60 years & older 09 BROTHER, Onset:60 years & older Family history: Diabetes mellitus 09 BROTHER, Onset:50's - 60 Myocardial infarction 09 BROTHER (colon ca) Physical Exam-Suspected Sepsis Physical Exam Vital Signs Vital Sign - Last 12Hours Capillary Refill : Less Than 3 Seconds Blood Pressure Mean: 122 General Appearance: No Apparent Distress, WD/WN HEENT: PERRL/EOMI, Pharynx Normal Neck: Non Tender, Supple Respiratory: Decreased Breath Sounds, No Wheezing Cardiovascular: No Murmur, Normal Peripheral Pulses, Irregularly Irregular Gastrointestinal: Non Tender, Soft Back: Normal Inspection, No CVA Tenderness, No Vertebral Tenderness Extremity: Normal Capillary Refill, Normal Range of Motion, Non Tender Neurologic/Psychiatric: Alert, Oriented x3 Skin: normal color, warm/dry, No ulcerations Lymphatic: No Adenopathy Focused Exam Evaluation Lactate Level Laboratory Tests 10/31/17 13:05: Lactic Acid Level 1.36 Lactic Acid Level Progress/Results/Core Measures Suspected Sepsis Recent Fever Within 48 Hours: No Infection Criteria Present: None New/Unexplained Altered Menta: No Sepsis Screen: No Definite Risk Sepsis Diagnosis: SIRS Temperature:100.4 Pulse: 63 Respiratory Rate: 35 Laboratory Tests 10/31/17 12:30: White Blood Count 15.8H 11/01/17 06:00: White Blood Count 10.6 Blood Pressure 200 /84 Mean: 122 Laboratory Tests 10/31/17 13:05: Lactic Acid Level 1.36 Laboratory Tests 10/31/17 12:30: Creatinine 1.23, INR Comment 1.3, Platelet Count 244, Total Bilirubin 0.8 11/01/17 06:00: Creatinine 1.22, Platelet Count 225, Total Bilirubin 1.1H Results/Orders Lab Results Laboratory Tests Test 10/31/17 12:30 10/31/17 13:05 10/31/17 18:30 11/01/17 06:00 Range/Units White Blood Count 15.8 H 10.6 4.3-11.0 10^3/uL Red Blood Count 4.37 3.97 L 4.35-5.85 10^6/uL Hemoglobin 13.9 12.7 L 13.3-17.7 G/DL Hematocrit 42 38 L 40-54 % Mean Corpuscular Volume 96 97 80-99 FL Mean Corpuscular Hemoglobin 32 32 25-34 PG Mean Corpuscular Hemoglobin Concent 33 33 32-36 G/DL Red Cell Distribution Width 12.6 12.8 10.0-14.5 % Platelet Count 244 225 130-400 10^3/uL Mean Platelet Volume 9.8 10.0 7.4-10.4 FL Neutrophils (%) (Auto) 88 H 79 H 42-75 % Lymphocytes (%) (Auto) 4 L 10 L 12-44 % Monocytes (%) (Auto) 8 10 0-12 % Eosinophils (%) (Auto) 0 1 0-10 % Basophils (%) (Auto) 0 0 0-10 % Neutrophils # (Auto) 14.0 H 8.4 H 1.8-7.8 X 10^3 Lymphocytes # (Auto) 0.6 L 1.1 1.0-4.0 X 10^3 Monocytes # (Auto) 1.2 H 1.1 H 0.0-1.0 X 10^3 Eosinophils # (Auto) 0.0 0.1 0.0-0.3 10^3/uL Basophils # (Auto) 0.0 0.0 0.0-0.1 10^3/uL Neutrophils % (Manual) 81 % Lymphocytes % (Manual) 2 % Monocytes % (Manual) 11 % Band Neutrophils 6 % Blood Morphology Comment NORMAL Prothrombin Time 16.5 H 12.2-14.7 SEC INR Comment 1.3 0.8-1.4 Activated Partial Thromboplast Time 36 H 24-35 SEC Sodium Level 137 138 135-145 MMOL/L Potassium Level 4.1 4.3 3.6-5.0 MMOL/L Chloride Level 99 103 98-107 MMOL/L Carbon Dioxide Level 28 26 21-32 MMOL/L Anion Gap 10 9 5-14 MMOL/L Blood Urea Nitrogen 27 H 28 H 7-18 MG/DL Creatinine 1.23 1.22 0.60-1.30 MG/DL Estimat Glomerular Filtration Rate 57 57 BUN/Creatinine Ratio 22 23 Glucose Level 175 H 94 70-105 MG/DL Calcium Level 9.6 9.2 8.5-10.1 MG/DL Magnesium Level 2.0 1.8-2.4 MG/DL Total Bilirubin 0.8 1.1 H 0.1-1.0 MG/DL Aspartate Amino Transf (AST/SGOT) 29 26 5-34 U/L Alanine Aminotransferase (ALT/SGPT) 12 6 0-55 U/L Alkaline Phosphatase 90 77 40-136 U/L Myoglobin 89.7 10.0-92.0 NG/ML Troponin I < 0.30 < 0.30 <0.30 NG/ML C-Reactive Protein High Sensitivity 0.78 H 0.00-0.50 MG/DL Total Protein 8.2 7.8 6.4-8.2 GM/DL Albumin 4.5 4.2 3.2-4.5 GM/DL Lactic Acid Level 1.36 0.50-2.00 MMOL/L Triglycerides Level 34 <150 MG/DL Cholesterol Level 181 < 200 MG/DL LDL Cholesterol Direct 92 1-129 MG/DL VLDL Cholesterol 7 5-40 MG/DL HDL Cholesterol 72 H 40-60 MG/DL My Orders Orders - PAO CLAUDIO MD Ekg Tracing (10/31/17 12:26) Cbc With Automated Diff (10/31/17 12:38) Magnesium (10/31/17 12:38) Chest 1 View, Ap/Pa Only (10/31/17 12:38) Cardiac Profile 1 (10/31/17 12:38) Comprehensive Metabolic Panel (10/31/17 12:38) Myoglobin Serum (10/31/17 12:38) Protime With Inr (10/31/17 12:38) Partial Thromboplastin Time (10/31/17 12:38) O2 (10/31/17 12:38) Monitor-Rhythm Ecg Trace Only (10/31/17 12:38) Lipid Panel (11/01/17 06:00) Aspirin Chewable Tablet (Baby Aspirin Ch (10/31/17 12:45) Nitroglycerin 0.4 Mg Btl 25's (Nitrostat (10/31/17 12:45) Saline Lock/Iv-Start (10/31/17 12:38) Hs C Reactive Protein (10/31/17 13:03) Lactic Acid Analyzer (10/31/17 13:03) Blood Culture (10/31/17 13:03) Manual Differential (10/31/17 12:30) Piperacillin Sodium/Tazobactam (Zosyn Vi (10/31/17 14:00) Ns Iv 500 Ml (Sodium Chloride 0.9%) (10/31/17 13:58) Fentanyl Injection (Sublimaze Injection (10/31/17 13:58) Ns (Ivpb) (Sodium Chloride 0.9% Ivpb Bag (10/31/17 13:54) Metoprolol Succinate (Xl) Tab (Toprol Xl (10/31/17 14:15) Comprehensive Metabolic Panel (11/01/17 06:00) Medications Given in ED Vital Signs/I&O Vital Sign - Last 12Hours 11/01/17 11/01/17 11/01/17 11/01/17 00:33 01:00 04:09 07:00 Temp 97.9 98.0 Pulse 61 60 58 62 Resp 20 16 B/P (MAP) 169/75 (106) 148/73 (98) Pulse Ox 98 100 O2 Delivery Room Air Room Air 11/01/17 11/01/17 08:21 09:18 Temp 97.7 Pulse 63 Resp 22 B/P (MAP) 110/68 (82) Pulse Ox 95 96 O2 Delivery Room Air Room Air Capillary Refill : Less Than 3 Seconds Blood Pressure Mean: 122 Progress Note : Progress Note Seen and evaluated. Dual workup for both chest pain and pneumonia. Blood cultures and lactic acid have been added to the typical chest pain order set. Patient has advanced Parkinson disease which complicates his care. Monitor patient. 1353: Pneumonia noted in the left base. Due to his Parkinson disease and frailty, patient is not a candidate for outpatient therapy. We are also continued workup for chest pain. I did discuss the case with Dr. Flood and she accepts patient for admission, inpatient status. We will initiate Zosyn therapy due to concerns for pseudomonas from structural lung disease. I did discuss the case with Dr. Carlson at 1404 and he accepts patient for consult. We will initiate Toprol-XL 25 mg daily per his recommendation. Patient has chronic fentanyl patch 100 g placed every 3 days. His last patch was placed last night and we will continue that. He states his pain gets unrelenting if this is not on so we will not interfere with that. Patient is having back pain currently. Fentanyl 50 g IV ordered. Nitroglycerin did not change his chest pain. He did receive aspirin 324 mg by mouth as well as the Toprol-XL as indicated. Admit, inpatient status. Patient and family agree with plan. ECG Initial ECG Impression Date: Oct 31, 2017 Initial ECG Impression Time: 12:26 Initial ECG Rate: 81 Comment Ventricular paced complexes. Right bundle branch block and left posterior fascicular block. Right axis deviation. Similar to previous of 19 June 2016. No evidence of ST elevation NV. Interpreted by me. Diagnostic Imaging Diagonstic Imaging: Xray Plain Films/CT/US/NM/MRI: chest Comments VIA [facility]. [place], [place] NAME: MANISHA PRUITT [facility] REC#: [id number] PT STATUS: REG ER : 1935 PHYSICIAN: PAO CLAUDIO MD ADMIT DATE: 10/31/17/ER Draft Date of Exam:10/31/17 CHEST 1 VIEW, AP/PA ONLY Portable upright radiograph of the chest. INDICATION: Chest pain. COMPARISON: 12/12/2016. FINDINGS: There is focal infiltrate or atelectasis in the left lung base. The right lung is clear. The heart size is at the upper limits of normal. No effusion or pneumothorax. The mediastinum and janell appear unremarkable. There is a pulse generator with a single cardiac lead seen. Sternotomy wires are noted. Surgical clips in the upper abdomen are also seen. IMPRESSION: There is mild left basilar infiltrate or atelectasis seen. Borderline cardiac size. Dictated on workstation # [id number] Dict: 10/31/17 1259 Trans: 10/31/17 1304 [id number] Interpreted by: PEGGY ALVARENGA MD Electronically signed by: Departure Communication (Admissions) Time/Spoke to Admitting Phy: 13:53 Time/Spoke to Consulting Phy: 14:04 Impression Impression: Primary Impression: Left lower lobe pneumonia Qualified Codes: J18.1 - Lobar pneumonia, unspecified organism Additional Impression: Chest pain Qualified Codes: R07.9 - Chest pain, unspecified Disposition: 09 ADMITTED INPATIENT Condition: Stable Admissions Decision to Admit Reason: Admit from ER (General) Decision to Admit/Date: Oct 31, 2017 Time/Decision to Admit Time: 13:53 Departure-Patient Inst. Referrals: GERRY JANE MD (PCP/Family) Primary Care Physician PAO CLAUDIO MD Oct 31, 2017 14:06
[2017-10-31] MEDS: NS IV 1000 ML 1,000 ML IV SCH (15:46)
[2017-10-31] MEDS: fentaNYL INJECTION 100 MCG/2 ML AMP IV PRN ×2 (15:59→21:13)
[2017-10-31] MEDS ORDERED: CARB1TAB19 PO ×2 (16:06→16:14)
[2017-10-31] MEDS ORDERED: PANT40TA3 PO (16:06)
[2017-10-31] MEDS ORDERED: PRAM1TAB5 PO (16:06)
[2017-10-31] MEDS ORDERED: MAGN400T6 PO (16:06)
[2017-10-31] MEDS ORDERED: RIVA1PAT13 TD (16:06)
[2017-10-31] MEDS ORDERED: FOLI-88 PO (16:14)
[2017-10-31] MEDS ORDERED: MAGN250T35 PO (16:14)
[2017-10-31 16:20] VITALS: BP 161/71
[2017-10-31 17:08] VITALS: BP 200/84
[2017-10-31] MEDS ORDERED: RT-ALBUTEROL/IPRATROPIUM 3 ML (DUONEB) VIAL INH PRN (17:30)
[2017-10-31 20:00] VITALS: BP 142/67
[2017-10-31] MEDS: RT-ALBUTEROL/IPRATROPIUM 3 ML (DUONEB) VIAL INH SCH (20:31)
[2017-10-31] MEDS: PIPERACILLIN/TAZOBACTAM 4.5 GM/NS 100 ML IVPB IV SCH ×2 (21:13)
[2017-11-01] MEDS: fentaNYL INJECTION 100 MCG/2 ML AMP IV PRN ×3 (00:27→12:50)
[2017-11-01 00:33] VITALS: BP 169/75
[2017-11-01] MEDS: NS IV 1000 ML 1,000 ML IV SCH ×2 (02:00→10:12)
[2017-11-01] MEDS ORDERED: OXYBUTYNIN (DITROPAN) 5 MG TAB ONE (02:31)
[2017-11-01] MEDS ORDERED: SINEMET 25/100 (CARBIDOPA/LEVODOPA) TAB ONE (02:31)
[2017-11-01] MEDS: RT-ALBUTEROL/IPRATROPIUM 3 ML (DUONEB) VIAL INH SCH ×4 (03:00→21:03)
[2017-11-01] MEDS: PIPERACILLIN/TAZOBACTAM 4.5 GM/NS 100 ML IVPB IV SCH ×6 (03:37→20:30)
[2017-11-01 04:09] VITALS: BP 148/73
[2017-11-01] MEDS ORDERED: fentaNYL PATCH 100 MCG (DURAGESIC) TD SCH (06:45)
[2017-11-01 06:49] LABS: BASOPHILS % (AUTO) 0 % (0-10); EOSINOPHILS # (AUTO) 0.1 10^3/uL (0.0-0.3); EOSINOPHILS % (AUTO) 1 % (0-10); LYMPHOCYTES # (AUTO) 1.1 X 10^3 (1.0-4.0); LYMPHOCYTES % (AUTO) 10 % (12-44); MEAN CORPUSCULAR HEMOGLOBIN 32 PG (25-34); MEAN CORPUSCULAR HGB CONC 33 G/DL (32-36); MEAN CORPUSCULAR VOLUME 97 FL (80-99); MONOCYTES # (AUTO) 1.1 X 10^3 (0.0-1.0); MONOCYTES % (AUTO) 10 % (0-12); NEUTROPHILS # (AUTO) 8.4 X 10^3 (1.8-7.8); NEUTROPHILS % (AUTO) 79 % (42-75); PLATELET COUNT 225 10^3/uL (130-400); RED BLOOD COUNT 3.97 10^6/uL (4.35-5.85); RED CELL DISTRIBUTION WIDTH 12.8 % (10.0-14.5); WHITE BLOOD COUNT 10.6 10^3/uL (4.3-11.0)
[2017-11-01 07:06] LABS: ALBUMIN 4.2 GM/DL (3.2-4.5); BILIRUBIN,TOTAL 1.1 MG/DL (0.1-1.0); CALCIUM 9.2 MG/DL (8.5-10.1); CREATININE SERUM 1.22 MG/DL (0.60-1.30); POTASSIUM 4.3 MMOL/L (3.6-5.0); TOTAL PROTEIN 7.8 GM/DL (6.4-8.2)
--- NOTE | 2017-11-01 08:10 | Consultation-Cardiology ---
HPI-Cardiology Cardiology Consultation: Date of Consultation 11/01/17 Time Seen by Provider: 08:30 Date of Admission 10-31-17 Attending Physician Rita Flood DO Admitting Physician Marcell Meek MD Consulting Physician Oral Van MD HPI: Chief Complaint: Chest pain Mr. Pruitt is a 81 year old male admitted to 404 from the ED. He reports an episode of sharp, stabbing upper left sided chest pain which he believes was yesterday. He reports it lasted for "quite some time"; he is unable to elaborate on exactly how long. He reports chronic shortness of breath with recent worsening over the last couple days. He reports non-productive cough for a couple days. He reports chills. No c/o n/v/d. No c/o LE edema. He reports he has chronic generalized pain. He is currently reporting his pain is back to his usual base line. He feels his breathing is better than yesterday. Review of Systems-Cardiology Review of Systems Constitutional: chills, tiredness Eyes: No blurred vision Ears/Nose/Throat: No epistaxis, No throat pain Respiratory: As described under HPI Cardiovascular: As described under HPI Gastrointestinal: No diarrhea, No nausea, No vomiting Genitourinary: No dysuria Musculoskeletal: back pain, muscle pain Skin: No ulcerations, No rash on exposed areas Psychiatric/Neurological: anxiety Hematologic: No bleeding abnormalities All Other Systems Reviewed Negative Unless Noted: Yes EWE-Mhapjy-Nabtba Hx Patient Social History Alcohol Use: Occasionally Uses Recreational Drug Use: No Smoking Status: Former Smoker Former smoker/When Quit: Dec 02, 1969 Type Used: Cigarettes 2nd Hand Smoke Exposure: No Recent Foreign Travel: No Recent Infectious Disease Expo: No Hospitalization with Isolation: Denies Physical Abuse Screen: No Sexual Abuse: No Immunizations Up To Date Tetanus Booster (TDap): Unknown Date of Pneumonia Vaccine: Jan 30, 2014 Date of Influenza Vaccine: Sep 01, 2017 Past Medical History PMH As described under Assessment. Family Medical History Family Medical History: Family history of CAD in a brother, sister and mother. Family History: Cancer 03 FATHER, Onset:60 years & older Cancer of colon 09 BROTHER, Onset:60 years & older Congestive heart failure 03 MOTHER, Onset:60 years & older 09 BROTHER, Onset:60 years & older Family history: Diabetes mellitus 09 BROTHER, Onset:50's - 60 Myocardial infarction 09 BROTHER (colon ca) No Family History of: Congenital heart disease Allergies and Home Medications Allergies Coded Allergies: gabapentin (Verified Allergy, Unknown, 02/27/17) morphine (Verified Allergy, Unknown, PT TAKES HYDROCODONE @ HOME, 02/27/17) Home Medications Aspirin 81 Mg Tablet.dr, 81 MG PO HS, (Reported) Calcium Polycarbophil 625 Mg Tablet, 625 MG PO DAILY, (Reported) Carbidopa/Levodopa 1 Each Tablet, 2 TAB PO DAILY, (Reported) Carbidopa/Levodopa 1 Each Tablet, 1.5 MG PO 1200,1800,2100, (Reported) Fentanyl 1 Each Patch.td72, 100 MCG TD Q72H, (Reported) Folic Acid/Multivit-Min/Lutein 1 Each Tab.chew, 1 TAB.CHEW PO BID, (Reported) Hydrocodone/Acetaminophen 1 Each Tablet, 1-2 TAB PO Q6H PRN for PAIN-MODERATE, ( Reported) Isosorbide Mononitrate 30 Mg Tab.er.24h, 30 MG PO DAILY, (Reported) Magnesium Oxide 250 Mg Tablet, 250 MG PO DAILY, (Reported) Oxybutynin Chloride 5 Mg Tablet, 5-10 MG PO HS, (Reported) Pantoprazole Sodium 40 Mg Tablet.dr, 40 MG PO DAILY, (Reported) Paroxetine HCl 20 Mg Tablet, 40 MG PO 1200, (Reported) TAKES 2 (20MG) TABLETS Pramipexole Di-HCl 1 Mg Tablet, 1 MG PO BID PRN for RESLESS LEGS, (Reported) Rivaroxaban 20 Mg Tablet, 20 MG PO 1800, (Reported) Rivastigmine 1 Each Patch.td24, 13.3 MG TD 1900, (Reported) Sennosides/Docusate Sodium 1 Each Tablet, 2 TAB PO 0800,1200, (Reported) Tamsulosin HCl 0.4 Mg Cap.er.24h, 0.4 MG PO 1800, (Reported) Physical Exam-Cardiology Physical Exam Vital Signs/I&O Vital Sign - Last 12Hours 11/01/17 11/01/17 11/01/17 11/01/17 00:33 01:00 04:09 07:00 Temp 97.9 98.0 Pulse 61 60 58 62 Resp 20 16 B/P (MAP) 169/75 (106) 148/73 (98) Pulse Ox 98 100 O2 Delivery Room Air Room Air 11/01/17 11/01/17 08:21 09:18 Temp 97.7 Pulse 63 Resp 22 B/P (MAP) 110/68 (82) Pulse Ox 95 96 O2 Delivery Room Air Room Air Capillary Refill : Less Than 3 Seconds Constitutional: AAO x 3 HEENT: PERRL, hearing is well preserved, oral hygience is good Neck: No carotid bruit, carotid pulses are 2 + bilaterally Respiratory: No accessory muscle use, No respiratory distress, chest expansion is symmetric, chest is bilaterally symmetric, other (diminished bases bilat; L>R ) Cardiovascular: regular rate-rhythm, No JVD, S1 and S2 Gastrointestinal: No tender, soft, round, audible bowel sounds Rectal: deferred Extremities: no lower extremity edema bilateral Neurologic/Psychiatric: other (generalized weakness (h/o Parkinson's); delayed movements), grossly intact Skin: normal color, warm/dry, No ulcerations Data Review Labs Laboratory Tests 10/31/17 12:30: White Blood Count 15.8H, Red Blood Count 4.37, Hemoglobin 13.9, Hematocrit 42, Mean Corpuscular Volume 96, Mean Corpuscular Hemoglobin 32, Mean Corpuscular Hemoglobin Concent 33, Red Cell Distribution Width 12.6, Platelet Count 244, Mean Platelet Volume 9.8, Neutrophils (%) (Auto) 88H, Lymphocytes (%) (Auto) 4L , Monocytes (%) (Auto) 8, Eosinophils (%) (Auto) 0, Basophils (%) (Auto) 0, Neutrophils # (Auto) 14.0H, Lymphocytes # (Auto) 0.6L, Monocytes # (Auto) 1.2H, Eosinophils # (Auto) 0.0, Basophils # (Auto) 0.0, Neutrophils % (Manual) 81, Lymphocytes % (Manual) 2, Monocytes % (Manual) 11, Band Neutrophils 6, Blood Morphology Comment NORMAL, Prothrombin Time 16.5H, INR Comment 1.3, Activated Partial Thromboplast Time 36H, Sodium Level 137, Potassium Level 4.1, Chloride Level 99, Carbon Dioxide Level 28, Anion Gap 10, Blood Urea Nitrogen 27H, Creatinine 1.23, Estimat Glomerular Filtration Rate 57, BUN/Creatinine Ratio 22 , Glucose Level 175H, Calcium Level 9.6, Magnesium Level 2.0, Total Bilirubin 0.8, Aspartate Amino Transf (AST/SGOT) 29, Alanine Aminotransferase (ALT/SGPT) 12, Alkaline Phosphatase 90, Myoglobin 89.7, Troponin I < 0.30, C-Reactive Protein High Sensitivity 0.78H, Total Protein 8.2, Albumin 4.5 10/31/17 13:05: Lactic Acid Level 1.36 10/31/17 18:30: Troponin I < 0.30 11/01/17 06:00: White Blood Count 10.6, Red Blood Count 3.97L, Hemoglobin 12.7L, Hematocrit 38L , Mean Corpuscular Volume 97, Mean Corpuscular Hemoglobin 32, Mean Corpuscular Hemoglobin Concent 33, Red Cell Distribution Width 12.8, Platelet Count 225, Mean Platelet Volume 10.0, Neutrophils (%) (Auto) 79H, Lymphocytes (%) (Auto) 10L, Monocytes (%) (Auto) 10, Eosinophils (%) (Auto) 1, Basophils (%) (Auto) 0, Neutrophils # (Auto) 8.4H, Lymphocytes # (Auto) 1.1, Monocytes # (Auto) 1.1H, Eosinophils # (Auto) 0.1, Basophils # (Auto) 0.0, Sodium Level 138, Potassium Level 4.3, Chloride Level 103, Carbon Dioxide Level 26, Anion Gap 9, Blood Urea Nitrogen 28H, Creatinine 1.22, Estimat Glomerular Filtration Rate 57, BUN/ Creatinine Ratio 23, Glucose Level 94, Calcium Level 9.2, Total Bilirubin 1.1H, Aspartate Amino Transf (AST/SGOT) 26, Alanine Aminotransferase (ALT/SGPT) 6, Alkaline Phosphatase 77, Total Protein 7.8, Albumin 4.2, Triglycerides Level 34 , Cholesterol Level 181, LDL Cholesterol Direct 92, VLDL Cholesterol 7, HDL Cholesterol 72H Radiology NAME: MANISHA PRUITT Carlyle MED REC#: [id number] PT STATUS: ADM IN : 1935 PHYSICIAN: PAO CLAUDIO MD ADMIT DATE: 10/31/17/ Signed Date of Exam: 10/31/17 CHEST 1 VIEW, AP/PA ONLY Portable upright radiograph of the chest. INDICATION: Chest pain. COMPARISON: 12/12/2016. FINDINGS: There is focal infiltrate or atelectasis in the left lung base. The right lung is clear. The heart size is at the upper limits of normal. No effusion or pneumothorax. The mediastinum and janell appear unremarkable. There is a pulse generator with a single cardiac lead seen. Sternotomy wires are noted. Surgical clips in the upper abdomen are also seen. IMPRESSION: There is mild left basilar infiltrate or atelectasis seen. Borderline cardiac size. Dictated by: Dictated on workstation # [id number] Dict: 10/31/17 1259 Trans: 10/31/17 1516 Interpreted by: PEGGY ALVARENGA MD Electronically signed by: PEGGY ALVARENGA MD 10/31/17 1516 ECG Impression ECG Comment V. 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 Functioning normally on interrogation in January 2017 Coronary artery disease. Most recent cardiac catheterization was carried out on 11/17/13. There was severe prox and mid disease of RCA and severe distal disease of LCX and mod severe mid disease of LAD. SVG to RCA, SVG to OM, LONGO to LAD were widely patent. LVEDP was mildly to moderately elevated. Last LVEF eval was on cath of 12/23/12 and LVEF was 60% MPI of 09/18/16 shows no ischemia or infarction and LVEF 62% Pulm Hypertension. Echocardiogram of 09/17/16 shows mild global hypo with LVEF 45%, mild to mod MR and TR, PASP 60 mmHg, AoV sclerosis without stenosis Parkinsonism, associated with chronic dysphasia Peripheral arterial disease with a history of peripheral arterial stenting by Dr. Inman, followed by Dr Duckworth. Chronic backache and spinal stenosis. Chronic pain syndrome . History of peptic ulcer disease requiring antrectomy with vagotomy approximately 20 to 25 years ago. Degenerative joint disease. History of spinal fusion surgery. Hyperlipidemia. Bilateral leg cramps, chronic. Carotid arterial disease being followed by [facility] in [place], [place] (Dr Duckworth) Chronic first-degree AV block and chronic right bundle branch block. Chronic persistent arial fibrillation, first diagnosed in Nov 2013. Stroke prophylaxis had been wiith chronic warfarin therapy , but he now managed on Xarelto Relative intolerance to Plavix, which results in significant bruising. Dry mouth and brittle teeth. The patient feels that this is related to statin therapy. For this reason, he is considered intolerant to statin therapy. Chronic anemia, being followed by Dr Meek Discussion and Recomendations Non-specific chest discomfort of undetermined etiology with no evidence of ACS LLL pneumonia which is being managed by the medical services Advise continuation of medications including BB, long-acting nitrate, ASA and Xarelto Monitor lab closely Further recommendations will be based on his hospital course We would like to thank the medical services for this consult This consult is being scribed by Kareem Sands APRN on behalf of Dr. Van after discussion regarding plan of care Clinical Quality Measures DVT/VTE Risk/Contraindication: Risk Factor Score Per Nursin RFS Level Per Nursing on Admit: 3=High YE SANDS Nov 01, 2017 08:10
[2017-11-01 08:21] VITALS: BP 110/68
[2017-11-01] MEDS ORDERED: ASPIRIN E.C. 325 MG (ECOTRIN) TABLET PO SCH (09:00)
--- NOTE | 2017-11-01 09:11 | Consultation-Cardiology ---
HPI-Cardiology Cardiology Consultation: Date of Consultation 11/01/17 Time Seen by Provider: 08:45 Date of Admission 10/31/17 Attending Physician Rita Flood DO Admitting Physician Marcell Meek MD Consulting Physician MAYCO BURGER MD, FACP, FACC HPI: Chief Complaint: Chest pain Mr. Hoyos is a 81 year old male admitted to 404 from the ED. He reports an episode of sharp, stabbing upper left sided chest pain which he believes was yesterday. He reports it lasted for "quite some time"; he is unable to elaborate on exactly how long. He reports chronic shortness of breath with recent worsening over the last couple days. He reports non-productive cough for a couple days. He reports chills. No c/o n/v/d. No c/o LE edema. He reports he has chronic generalized pain. He is currently reporting his pain is back to his usual base line. He feels his breathing is better than yesterday. He notes gen malaise that has been progressive for several days prior to this admission Review of Systems-Cardiology Review of Systems Constitutional: chills, tiredness Eyes: No blurred vision, No vision change Ears/Nose/Throat: No epistaxis, No recent hearing loss, No throat pain Respiratory: As described under HPI Cardiovascular: As described under HPI Gastrointestinal: No diarrhea, No nausea, No vomiting Genitourinary: No dysuria Musculoskeletal: back pain, muscle pain Skin: No ulcerations, No rash on exposed areas Psychiatric/Neurological: anxiety, other (paucity of motion w/o focal weakness) Hematologic: No bleeding abnormalities All Other Systems Reviewed Negative Unless Noted: Yes IUL-Rbspdl-Ixiqxj Hx Patient Social History Alcohol Use: Occasionally Uses Recreational Drug Use: No Smoking Status: Former Smoker Former smoker/When Quit: Dec 02, 1969 Type Used: Cigarettes 2nd Hand Smoke Exposure: No Recent Foreign Travel: No Recent Infectious Disease Expo: No Hospitalization with Isolation: Denies Physical Abuse Screen: No Sexual Abuse: No Immunizations Up To Date Tetanus Booster (TDap): Unknown Date of Pneumonia Vaccine: Jan 30, 2014 Date of Influenza Vaccine: Sep 01, 2017 Past Medical History PMH As described under Assessment. Family Medical History Family Medical History: Family history of CAD in a brother, sister and mother. Family History: Cancer 03 FATHER, Onset:60 years & older Cancer of colon 09 BROTHER, Onset:60 years & older Congestive heart failure 03 MOTHER, Onset:60 years & older 09 BROTHER, Onset:60 years & older Family history: Diabetes mellitus 09 BROTHER, Onset:50's - 60 Myocardial infarction 09 BROTHER (colon ca) No Family History of: Congenital heart disease Allergies and Home Medications Allergies Coded Allergies: gabapentin (Verified Allergy, Unknown, 02/27/17) morphine (Verified Allergy, Unknown, PT TAKES HYDROCODONE @ HOME, 02/27/17) Home Medications Aspirin 81 Mg Tablet.dr, 81 MG PO HS, (Reported) Calcium Polycarbophil 625 Mg Tablet, 625 MG PO DAILY, (Reported) Carbidopa/Levodopa 1 Each Tablet, 2 TAB PO DAILY, (Reported) Carbidopa/Levodopa 1 Each Tablet, 1.5 MG PO 1200,1800,2100, (Reported) Fentanyl 1 Each Patch.td72, 100 MCG TD Q72H, (Reported) Folic Acid/Multivit-Min/Lutein 1 Each Tab.chew, 1 TAB.CHEW PO BID, (Reported) Hydrocodone/Acetaminophen 1 Each Tablet, 1-2 TAB PO Q6H PRN for PAIN-MODERATE, ( Reported) Isosorbide Mononitrate 30 Mg Tab.er.24h, 30 MG PO DAILY, (Reported) Magnesium Oxide 250 Mg Tablet, 250 MG PO DAILY, (Reported) Oxybutynin Chloride 5 Mg Tablet, 5-10 MG PO HS, (Reported) Pantoprazole Sodium 40 Mg Tablet.dr, 40 MG PO DAILY, (Reported) Paroxetine HCl 20 Mg Tablet, 40 MG PO 1200, (Reported) TAKES 2 (20MG) TABLETS Pramipexole Di-HCl 1 Mg Tablet, 1 MG PO BID PRN for RESLESS LEGS, (Reported) Rivaroxaban 20 Mg Tablet, 20 MG PO 1800, (Reported) Rivastigmine 1 Each Patch.td24, 13.3 MG TD 1900, (Reported) Sennosides/Docusate Sodium 1 Each Tablet, 2 TAB PO 0800,1200, (Reported) Tamsulosin HCl 0.4 Mg Cap.er.24h, 0.4 MG PO 1800, (Reported) Physical Exam-Cardiology Physical Exam Vital Signs/I&O Vital Sign - Last 12Hours 11/01/17 11/01/17 11/01/17 11/01/17 00:33 01:00 04:09 07:00 Temp 97.9 98.0 Pulse 61 60 58 62 Resp 20 16 B/P (MAP) 169/75 (106) 148/73 (98) Pulse Ox 98 100 O2 Delivery Room Air Room Air 11/01/17 08:21 Temp 97.7 Pulse 63 Resp 22 B/P (MAP) 110/68 (82) Pulse Ox 95 O2 Delivery Room Air Capillary Refill : Less Than 3 Seconds Constitutional: AAO x 3 HEENT: PERRL, hearing is well preserved, oral hygience is good Neck: No carotid bruit, carotid pulses are 2 + bilaterally Respiratory: No accessory muscle use, No respiratory distress, chest expansion is symmetric, chest is bilaterally symmetric, other (diminished bases bilat; L>R ) Cardiovascular: regular rate-rhythm, No JVD, S1 and S2, systolic murmur (faint STEPHANIE at card base) Gastrointestinal: No tender, soft, round, audible bowel sounds Rectal: deferred Extremities: no lower extremity edema bilateral Neurologic/Psychiatric: other (generalized weakness (h/o Parkinson's); delayed movements; paucity of motion w/o focal weakness), grossly intact Skin: normal color, warm/dry, No rash on exposed areas, No ulcerations on exposed areas Data Review Labs Laboratory Tests 10/31/17 12:30: White Blood Count 15.8H, Red Blood Count 4.37, Hemoglobin 13.9, Hematocrit 42, Mean Corpuscular Volume 96, Mean Corpuscular Hemoglobin 32, Mean Corpuscular Hemoglobin Concent 33, Red Cell Distribution Width 12.6, Platelet Count 244, Mean Platelet Volume 9.8, Neutrophils (%) (Auto) 88H, Lymphocytes (%) (Auto) 4L , Monocytes (%) (Auto) 8, Eosinophils (%) (Auto) 0, Basophils (%) (Auto) 0, Neutrophils # (Auto) 14.0H, Lymphocytes # (Auto) 0.6L, Monocytes # (Auto) 1.2H, Eosinophils # (Auto) 0.0, Basophils # (Auto) 0.0, Neutrophils % (Manual) 81, Lymphocytes % (Manual) 2, Monocytes % (Manual) 11, Band Neutrophils 6, Blood Morphology Comment NORMAL, Prothrombin Time 16.5H, INR Comment 1.3, Activated Partial Thromboplast Time 36H, Sodium Level 137, Potassium Level 4.1, Chloride Level 99, Carbon Dioxide Level 28, Anion Gap 10, Blood Urea Nitrogen 27H, Creatinine 1.23, Estimat Glomerular Filtration Rate 57, BUN/Creatinine Ratio 22 , Glucose Level 175H, Calcium Level 9.6, Magnesium Level 2.0, Total Bilirubin 0.8, Aspartate Amino Transf (AST/SGOT) 29, Alanine Aminotransferase (ALT/SGPT) 12, Alkaline Phosphatase 90, Myoglobin 89.7, Troponin I < 0.30, C-Reactive Protein High Sensitivity 0.78H, Total Protein 8.2, Albumin 4.5 10/31/17 13:05: Lactic Acid Level 1.36 10/31/17 18:30: Troponin I < 0.30 11/01/17 06:00: White Blood Count 10.6, Red Blood Count 3.97L, Hemoglobin 12.7L, Hematocrit 38L , Mean Corpuscular Volume 97, Mean Corpuscular Hemoglobin 32, Mean Corpuscular Hemoglobin Concent 33, Red Cell Distribution Width 12.8, Platelet Count 225, Mean Platelet Volume 10.0, Neutrophils (%) (Auto) 79H, Lymphocytes (%) (Auto) 10L, Monocytes (%) (Auto) 10, Eosinophils (%) (Auto) 1, Basophils (%) (Auto) 0, Neutrophils # (Auto) 8.4H, Lymphocytes # (Auto) 1.1, Monocytes # (Auto) 1.1H, Eosinophils # (Auto) 0.1, Basophils # (Auto) 0.0, Sodium Level 138, Potassium Level 4.3, Chloride Level 103, Carbon Dioxide Level 26, Anion Gap 9, Blood Urea Nitrogen 28H, Creatinine 1.22, Estimat Glomerular Filtration Rate 57, BUN/ Creatinine Ratio 23, Glucose Level 94, Calcium Level 9.2, Total Bilirubin 1.1H, Aspartate Amino Transf (AST/SGOT) 26, Alanine Aminotransferase (ALT/SGPT) 6, Alkaline Phosphatase 77, Total Protein 7.8, Albumin 4.2, Triglycerides Level 34 , Cholesterol Level 181, LDL Cholesterol Direct 92, VLDL Cholesterol 7, HDL Cholesterol 72H Laboratory Tests 10/31/17 12:30 11/01/17 06:00 A/P-Cardiology Assessment/Admission Diagnosis Relatively chronic intermittent chest discomfort, non specific, no evidence of ACS LLL Pneumonia - management per medical services Suspected sleep apnea, possibly central sleep apnea Chronic angina, likely possibly due to small vessel coronary artery disease which medical treatment has been advised 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 Functioning normally on interrogation on 10/10/17 Coronary artery disease. Most recent cardiac catheterization was carried out on 11/17/13. There was severe prox and mid disease of RCA and severe distal disease of LCX and mod severe mid disease of LAD. SVG to RCA, SVG to OM, LONGO to LAD were widely patent. LVEDP was mildly to moderately elevated. Last LVEF eval was on cath of 12/23/12 and LVEF was 60% MPI of 09/18/16 shows no ischemia or infarction and LVEF 62% Pulm Hypertension. Echocardiogram of 09/17/16 shows mild global hypo with LVEF 45%, mild to mod MR and TR, PASP 60 mmHg, AoV sclerosis without stenosis Parkinsonism, associated with chronic dysphasia Peripheral arterial disease with a history of peripheral arterial stenting by Dr. Inman, followed by Dr Duckworth. Chronic backache and spinal stenosis. Chronic pain syndrome . History of peptic ulcer disease requiring antrectomy with vagotomy approximately 20 to 25 years ago. Degenerative joint disease. History of spinal fusion surgery. Hyperlipidemia. Bilateral leg cramps, chronic. Carotid arterial disease being followed by [facility] in [place], [place] (Dr Duckworth) Chronic persistent arial fibrillation, first diagnosed in Nov 2013. Stroke prophylaxis with Xarelto Relative intolerance to Plavix, which results in significant bruising. Dry mouth and brittle teeth. The patient feels that this is related to statin therapy. For this reason, he is considered intolerant to statin therapy. Chronic anemia, being followed by Dr Meek Discussion and Recomendations He suffers from multiple comorbidities, including chronic pain Chest discomfort is nonspecific and w/o any evidence or ACS LLL pneumonia which is being managed by the medical services Advise continuation of medications including BB, long-acting nitrate, ASA and Xarelto Monitor lab closely Further recommendations will be based on his hospital course Dr Luther covering over the weekend Clinical Quality Measures DVT/VTE Risk/Contraindication: Risk Factor Score Per Nursin RFS Level Per Nursing on Admit: 3=High MAYCO BURGER MD FACP FAC CCDS Nov 01, 2017 09:10
[2017-11-01] MEDS: PANTOPRAZOLE 40 MG (PROTONIX) TAB PO SCH (09:14)
[2017-11-01] MEDS: SINEMET 25/100 (CARBIDOPA/LEVODOPA) TAB PO SCH ×4 (09:14→20:29)
[2017-11-01] MEDS: SENNA W/DOCUSATE (SENOKOT S) TABLET PO SCH ×2 (09:14→12:43)
[2017-11-01] MEDS: ISOSORBIDE MONONITRATE 30 MG (IMDUR) TAB PO SCH (09:14)
[2017-11-01] MEDS: CAL. POLYCARBOPHIL 625 MG (FIBERCON) TAB PO SCH (09:14)
[2017-11-01] MEDS ORDERED: PARoxetine 20 MG (PAXIL) TAB PO SCH (12:00)
[2017-11-01 12:49] VITALS: BP 180/75
--- NOTE | 2017-11-01 13:23 | History & Physical-Hospitalist ---
HPI History of Present Illness: HPI/Chief Complaint Mr. 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 He reports a nonproductive cough for the past for 5 days and over the last 48 hours to become progressively more short of breath. It was a shortness of breath in addition to chest pain that caused him to present to the emergency room. He was unsure as to whether or not it was pleuritic in nature. It was not associated with nausea vomiting or bowel habit change. He denies any heartburn or dysphasia. There have been no periods of immobility and the patient is on chronic Xaralto due to past history of paroxysmal atrial fibrillation. 4 she's had intermittent chills vacillate in with feeling hot. He is unaware as to whether these truly been running a fever or not. Date Seen 11/01/17 Time Seen by Provider: 07:30 Attending Physician Gerry Meek M.D. PCP Gerry Meek MD Referring Physician Date of Admission Oct 31, 2017 at 13:58 Home Medications & Allergies Home Medications Reviewed patient Home Medication Reconciliation Form Allergies Allergies Coded Allergies gabapentin (Verified Allergy, Unknown, 02/27/17) morphine (Verified Allergy, Unknown, PT TAKES HYDROCODONE @ HOME, 02/27/17) Past [id number] Hx Patient Social History Alcohol Use: Occasionally Uses Number of Drinks Today: AA Alcohol Beverage of Choice: Beer Recreational Drug Use: No Smoking Status: Former Smoker Former Smoker, Quit: Feb 27, 1979 Type Used: Cigarettes 2nd Hand Smoke Exposure: No Physical Abuse Screen: No Sexual Abuse: No Recent Foreign Travel: No Contact w/other who traveled: No Recent Hopitalizations: Yes (07/2016 PNEUMONIA) Recent Infectious Disease Expo: No Immunizations Up To Date Tetanus Booster (TDap): Unknown Pediatric: Yes Date of Pneumonia Vaccine: Jan 30, 2014 Date of Influenza Vaccine: Sep 01, 2017 Seasonal Allergies Seasonal Allergies: No Surgeries Yes ( TEETH PULLED, ULCER SX, BACK SX X2, OPEN HEART SURGERY WITH X 3 BYPASS) Abdominal, Appendectomy, CABG, Orthopedic, Pacemaker Respiratory Yes Pneumonia Currently Using CPAP: No Currently Using BIPAP: No Cardiovascular Yes (PACEMAKER. CAROTID DISEASE. 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 AV BLOCK. RBBB) Atrial Fibrillation, Coronary Artery Disease, Heart Attack, High Cholesterol, Hypertension Neurological Yes (HX acute dementia) Dementia, Parkinson's Disease Reproductive System Hx Reproductive Disorders: No Sexually Transmitted Disease: No HIV/AIDS: No Genitourinary Yes Kidney Stones, Renal Failure Gastrointestinal Yes Gastroesophageal Reflux, Chronic Constipation, Ulcer Musculoskeletal Yes (CHRONIC GENERALIZED PAIN. CHRONIC LEG CRAMPS, spinal stenosis) Arthritis, Back Injury, Chronic Back Pain Endocrine History of Endocrine Disorders: No HEENT Loss of Vision: Bilateral Hearing Impairment: Hard of Hearing Cancer No Psychosocial History of Psychiatric Problem: Yes (hx of dementia/zain) Behavioral Health Disorders: Anxiety Integumentary History of Skin or Integumenta: No Blood Transfusions History of Blood Disorders: No Adverse Reaction to a Blood Tr: No Reviewed Nursing Assessment Reviewed/Agree w Nursing PMH: Yes Family Medical History Significant Family History: No Pertinent Family Hx Family Hx: Cancer 03 FATHER, Onset:60 years & older Cancer of colon 09 BROTHER, Onset:60 years & older Congestive heart failure 03 MOTHER, Onset:60 years & older 09 BROTHER, Onset:60 years & older Family history: Diabetes mellitus 09 BROTHER, Onset:50's - 60 Myocardial infarction 09 BROTHER (colon ca) No Family History of: Congenital heart disease Review of Systems Constitutional: chills, weakness Respiratory: No no symptoms reported, No see HPI, cough, dyspnea on exertion, No hemoptysis, No orthopnea, No phlegm, short of breath, No stridor, No wheezing , No other Cardiovascular: see HPI, chest pain, No edema, Hx of Intervention, No palpitations, No syncope, vascular heart diseas, No other Physical Exam Physical Exam Vital Signs Vital Sign - Last 12Hours Capillary Refill : Less Than 3 Seconds General Appearance: No Apparent Distress, WD/WN Eyes: Bilateral Eye Normal Inspection HEENT: Pharynx Normal Neck: Full Range of Motion, Normal Inspection, Non Tender, Supple, Carotid Bruit Respiratory: No Accessory Muscle Use, No Respiratory Distress, Other (History rales with fascicular breath sounds in left lower lobe. There are a few fine intermittent rales in the right base elsewhere her chest is clear) Cardiovascular: Regular Rate, Rhythm, No Edema, No Gallop, No JVD, No Murmur, Normal Peripheral Pulses Gastrointestinal: Normal Bowel Sounds, No Organomegaly, No Pulsatile Mass, Non Tender, Soft Extremity: Normal Capillary Refill, Normal Inspection, Normal Range of Motion, Non Tender, No Calf Tenderness, No Pedal Edema Neurologic/Psychiatric: Alert, Other (Pill rolling resting tremor left greater than right) Skin: Normal Color, Warm/Dry Results Results/Procedures Lab Laboratory Tests 10/31/17 12:30 11/01/17 06:00 Assessment/Plan Admission Diagnosis 1. Left lower lobe pneumonia with sepsis not severe continue broad-spectrum antibiotics for now. Patient is tolerating by mouth well so will discontinue IV fluids. 2. History of coronary artery disease no evidence to suggest acute coronary syndrome at this time agree with Dr. BURGER. 3. On's are also as I recall for past history of paroxysmal atrial fibrillation. This will suffice for DVT prophylaxis will continue. 4. Parkinson's disease with related dementia. Clinical Quality Measures DVT/VTE Risk/Contraindication: Risk Factor Score Per Nursin RFS Level Per Nursing on Admit: 3=High Other: RECEIVING GERRY CANTU MD Nov 01, 2017 13:23
[2017-11-01] MEDS ORDERED: HYDROcodone/APAP 5 MG/325 MG (LORTAB) TAB PO PRN (15:15)
[2017-11-01 15:55] VITALS: BP 161/76
[2017-11-01] MEDS ORDERED: ALFUZOSIN HCL 10 MG TAB (UROXATRAL) PO SCH (18:00)
[2017-11-01] MEDS ORDERED: RIVAROXABAN 20 MG TABLET (XARELTO) PO SCH (18:00)
[2017-11-01] MEDS ORDERED: EXELON PATCH REMOVAL TP SCH (18:59)
[2017-11-01] MEDS ORDERED: RIVASTIGMINE 13.3 MG TD SCH (19:00)
[2017-11-01] MEDS ORDERED: RIVASTIGMINE 9.5 MG PATCH (EXELON) NON-FORMULARY TD SCH (19:00)
[2017-11-01] MEDS ORDERED: RIVASTIGMINE 4.6 MG PATCH (EXELON) TD SCH (19:00)
[2017-11-01 20:00] VITALS: BP 113/55
[2017-11-01] MEDS: MULTIVIT W/MINERALS TAB (THERAGRAN M) PO SCH (20:29)
[2017-11-01] MEDS ORDERED: OXYBUTYNIN (DITROPAN) 5 MG TAB PO SCH ×2 (21:00)
[2017-11-01] MEDS ORDERED: PRAMIPEXOLE 0.5 MG TAB (MIRAPEX) PO PRN (21:00)
[2017-11-01] MEDS ORDERED: ASPIRIN E.C. 81 MG (ECOTRIN) TAB PO SCH (21:00)
[2017-11-02] VITALS: BP 132/63
[2017-11-02] MEDS: RT-ALBUTEROL/IPRATROPIUM 3 ML (DUONEB) VIAL INH SCH ×2 (02:56→08:33)
[2017-11-02 03:25] VITALS: BP 174/81
[2017-11-02] MEDS: PIPERACILLIN/TAZOBACTAM 4.5 GM/NS 100 ML IVPB IV SCH ×2 (03:40)
[2017-11-02 07:49] VITALS: BP 152/72
[2017-11-02] MEDS ORDERED: MAGNESIUM OXIDE (MAG-OX)400 MG TAB PO SCH (08:00)
[2017-11-02] MEDS: CAL. POLYCARBOPHIL 625 MG (FIBERCON) TAB PO SCH (08:25)
[2017-11-02] MEDS: SENNA W/DOCUSATE (SENOKOT S) TABLET PO SCH (08:25)
[2017-11-02] MEDS: PANTOPRAZOLE 40 MG (PROTONIX) TAB PO SCH (08:26)
[2017-11-02] MEDS: SINEMET 25/100 (CARBIDOPA/LEVODOPA) TAB PO SCH (08:26)
[2017-11-02] MEDS: ISOSORBIDE MONONITRATE 30 MG (IMDUR) TAB PO SCH (08:26)
[2017-11-02] MEDS: MULTIVIT W/MINERALS TAB (THERAGRAN M) PO SCH (08:26)
[2017-11-02] MEDS ORDERED: AZIT250T12 PO (10:49)
--- NOTE | 2017-11-02 11:49 | Cardiology Progress Note ---
Cardiology SOAP Progress Note Subjective: No cardiac complaints. Objective: I&O/Vital Signs Vital Sign - Last 12Hours 11/02/17 11/02/17 11/02/17 11/02/17 00:00 01:00 03:25 07:00 Temp 97.4 97.5 Pulse 60 61 61 60 Resp 16 22 B/P (MAP) 132/63 (86) 174/81 (112) Pulse Ox 95 99 O2 Delivery Room Air Room Air 11/02/17 11/02/17 11/02/17 07:49 08:24 08:33 Temp 98.7 Pulse 60 Resp 22 B/P (MAP) 152/72 (98) Pulse Ox 95 95 O2 Delivery Room Air Room Air Room Air Weight (Pounds): 146 Weight (Ounces): 2.0 Weight (Calculated Kilograms): 66.226093 Constitutional: AAO x 3 Respiratory: No accessory muscle use, No respiratory distress, chest expansion is symmetric, chest is bilaterally symmetric, other (diminished bases bilat; L>R ) Cardiovascular: regular rate-rhythm, No JVD, S1 and S2, systolic murmur (faint STEPHANIE at card base) Gastrointestional: No tender, soft, round, audible bowel sounds Extremities: no lower extremity edema bilateral Neurologic/Psychiatric: other (generalized weakness (h/o Parkinson's); delayed movements; paucity of motion w/o focal weakness), grossly intact Skin: normal color, warm/dry, No ulcerations Results/Procedures: Labs Microbiology 10/31/17 Blood Culture - Preliminary, Resulted No growth A/P: Assessment/Dx: Relatively chronic intermittent chest discomfort, non specific, no evidence of ACS LLL Pneumonia - management per medical services Suspected sleep apnea, possibly central sleep apnea Chronic angina, likely possibly due to small vessel coronary artery disease which medical treatment has been advised 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 Functioning normally on interrogation on 10/10/17 Coronary artery disease. Most recent cardiac catheterization was carried out on 11/17/13. There was severe prox and mid disease of RCA and severe distal disease of LCX and mod severe mid disease of LAD. SVG to RCA, SVG to OM, LONGO to LAD were widely patent. LVEDP was mildly to moderately elevated. Last LVEF eval was on cath of 12/23/12 and LVEF was 60% MPI of 09/18/16 shows no ischemia or infarction and LVEF 62% Pulm Hypertension. Echocardiogram of 09/17/16 shows mild global hypo with LVEF 45%, mild to mod MR and TR, PASP 60 mmHg, AoV sclerosis without stenosis Parkinsonism, associated with chronic dysphasia Peripheral arterial disease with a history of peripheral arterial stenting by Dr. Inman, followed by Dr Duckworth. Chronic backache and spinal stenosis. Chronic pain syndrome . History of peptic ulcer disease requiring antrectomy with vagotomy approximately 20 to 25 years ago. Degenerative joint disease. History of spinal fusion surgery. Hyperlipidemia. Bilateral leg cramps, chronic. Carotid arterial disease being followed by [facility] in [place], [place] (Dr Duckworth) Chronic persistent arial fibrillation, first diagnosed in Nov 2013. Stroke prophylaxis with Xarelto Relative intolerance to Plavix, which results in significant bruising. Dry mouth and brittle teeth. The patient feels that this is related to statin therapy. For this reason, he is considered intolerant to statin therapy. Chronic anemia, being followed by Dr Meek Plan: Relatively chronic intermittent chest discomfort, non specific, no evidence of ACS LLL Pneumonia - management per medical services Suspected sleep apnea, possibly central sleep apnea He suffers from multiple comorbidities, including chronic pain Chest discomfort is nonspecific and w/o any evidence or ACS LLL pneumonia which is being managed by the medical services Advise continuation of medications including BB, long-acting nitrate, ASA and Xarelto Monitor lab closely Okay to discharge to follow-up with Dr. Van as an outpatient. Thank you for your consultation. Please call me if you have any questions. Alexandre Luther MD, FACP, FACC, FSCAI, FHRS, CCDS Interventional Cardiology Cardiac Electrophysiology Vascular Medicine and Endovascular Interventions Munir LUTHER MD Nov 02, 2017 11:49 am
[2017-11-02] MEDS ORDERED: fentaNYL PATCH 100 MCG (DURAGESIC) TOP SCH (18:00)
--- NOTE | 2017-11-05 08:48 | Physician Query Clarification ---
PQ-Further Specificity Admission/Discharge Admission Date: Oct 31, 2017 at 13:58 Discharge Date: Nov 02, 2017 at 11:45 The medical record reflects the following clinical scenario: History/Risk Factors: Pneumonia, CAD w/unstable angina, Parkinson's w/dementia Clinical Findings: Chest pain, fever/chills, cough, shortness of air Treatment: broad spectrum antibiotics Question: Can you confirm whether or not the patient had sepsis per the clinical indicators above? Sepsis is only listed once in the documentation. Please document below. 1. Sepsis is confirmed 2. Patient did not have sepsis after study 3. Other, with explanation of the clinical findings. 4. Clinically undetermined, no explanation for the clinical findings. PHYSICIAN RESPONSE Can you specify per above: 2 In responding to this query, please exercise your independent professional judgment. The purpose of this communication is to more accurately reflect the complexity of your patients condition. The fact that a question is asked does not imply that any particular answer is desired or expected. Thank you for your timely response to this clarification. Requestors name: Jaja THIS PHYSICIAN QUERY FORM IS A PERMANENT PART OF THE MEDICAL RECORD JAJA MONSALVE Nov 05, 2017 08:48 GERRY JANE MD Nov 05, 2017 16:26
== END 2017-11-02 11:45 | disposition home or self-care (01) | DRG 194 ==
LOC: EDUNIT# 12:24 → ER 12:25 → 4TH 13:58
PROVIDERS: ADMIT Internal Medicine; ATTEND Internal Medicine
DX: J18.9 Pneumonia, unspecified organism (principal); I48.1 Persistent atrial fibrillation; I25.759 Atherosclerosis of native coronary artery of transplanted heart with unspecified angina pectoris; I45.2 Bifascicular block; G31.83 Neurocognitive disorder with Lewy bodies; F02.80 Dementia in other diseases classified elsewhere, unspecified severity, without behavioral disturbance, psychotic disturbance, mood disturbance, and anxiety; I27.20 Pulmonary hypertension, unspecified; I10 Essential (primary) hypertension; E78.00 Pure hypercholesterolemia, unspecified; K21.9 Gastro-esophageal reflux disease without esophagitis; E78.5 Hyperlipidemia, unspecified; D64.9 Anemia, unspecified; Z95.0 Presence of cardiac pacemaker; Z95.1 Presence of aortocoronary bypass graft; I25.2 Old myocardial infarction; Z87.891 Personal history of nicotine dependence; G47.31 Primary central sleep apnea
CPT/HCPCS: 36415; 71010; 80053; 80061; 83605; 83735; 83874; 84484; 85007; 85025; 85027; 85610; 85730; 86141; 87040; 93005; 93041; 94640; 94760; 96361; 96365; 96375

== ENCOUNTER 2018-01-23 18:27 | Inpatient (IN) | payer MEDICARE ==
[~2018-01-23] VITALS: Ht 170.2 cm; Wt 64.4 kg
[~2018-01-23 18:27] MED LIST changes: +AZIT250T12 PO; -FERR-74 PO; +FERR325T18 PO; +FOLI-88 PO; +HYDR-34 PO; -HYDR-3812 PO; +MAGN250T35 PO; +MAGN400T6 PO; +PRAM1TAB5 PO; +RIVA1PAT13 TD
[2018-01-23 19:45] LABS: BASOPHILS % (AUTO) 0 % (0-10); EOSINOPHILS # (AUTO) 0.2 10^3/uL (0.0-0.3); EOSINOPHILS % (AUTO) 2 % (0-10); HEMATOCRIT 38 % (40-54); HEMOGLOBIN 12.6 G/DL (13.3-17.7); LYMPHOCYTES # (AUTO) 0.9 X 10^3 (1.0-4.0); LYMPHOCYTES % (AUTO) 9 % (12-44); MEAN CORPUSCULAR HEMOGLOBIN 32 PG (25-34); MEAN CORPUSCULAR HGB CONC 33 G/DL (32-36); MEAN CORPUSCULAR VOLUME 97 FL (80-99); MEAN PLATELET VOLUME 9.7 FL (7.4-10.4); MONOCYTES # (AUTO) 0.9 X 10^3 (0.0-1.0); MONOCYTES % (AUTO) 9 % (0-12); NEUTROPHILS # (AUTO) 7.9 X 10^3 (1.8-7.8); NEUTROPHILS % (AUTO) 80 % (42-75); PLATELET COUNT 219 10^3/uL (130-400); RED CELL DISTRIBUTION WIDTH 13.9 % (10.0-14.5); WHITE BLOOD COUNT 9.9 10^3/uL (4.3-11.0)
[2018-01-23] MEDS ORDERED: ACETAMINOPHEN 500 MG TAB (TYLENOL) PO ONE (19:45)
[2018-01-23] MEDS ORDERED: NS IV 1000 ML 1,000 ML IV SCH (19:45)
--- NOTE | 2018-01-23 19:48 | ED General ---
General Chief Complaint: Altered Mental Status Stated Complaint: AMS/POSS PNEUMONIA Nursing Triage Note: pt presents to er with from home with complaint of delerium that started around two. states that pt has also been coughing for the last couple days. states she called yon today and he prescribed benzontate. Nursing Sepsis Screen: No Definite Risk History of Present Illness Date Seen by Provider: Jan 23, 2018 Time Seen by Provider: 19:44 Initial Comments Mr. 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 Patient's reports that he is prone to pneumonia and had a recent hospitalization last October for a similar episode. They called Dr. Meek's office this morning to report the cough and was called in some [facility]. Timing/Duration: 4-6 Hours Severity: Mild Associated Systoms: Cough, Fever/Chills, Weakness, Other (confusion) Allergies and Home Medications Allergies Coded Allergies: gabapentin (Verified Allergy, Unknown, 02/27/17) morphine (Verified Allergy, Unknown, PT TAKES HYDROCODONE @ HOME, 02/27/17) Home Medications Alprazolam 0.25 Mg Tablet, 0.5 MG PO DAILY PRN for ANXIETY, (Reported) Aspirin 81 Mg Tablet.dr, 81 MG PO HS, (Reported) Benzonatate 200 Mg Capsule, 200 MG PO TID, (Reported) Calcium Polycarbophil 625 Mg Tablet, 625 MG PO DAILY, (Reported) Carbidopa/Levodopa 1 Each Tablet.er, 1.5 EACH PO QID, (Reported) Fentanyl 1 Each Patch.td72, 100 MCG TD Q72H, (Reported) Folic Acid/Multivit-Min/Lutein 1 Each Tab.chew, 1 TAB.CHEW PO BID, (Reported) Hydrocodone/Acetaminophen 1 Each Tablet, 1-2 EACH PO Q4H PRN for PAIN-MODERATE, (Reported) Isosorbide Mononitrate 30 Mg Tab.er.24h, 30 MG PO DAILY, (Reported) Magnesium Oxide 250 Mg Tablet, 250 MG PO DAILY, (Reported) Nitroglycerin 0.4 Mg Tab.subl, 0.4 MG SL PRN PRN for CHEST PAIN, #24 (Reported) Oxybutynin Chloride 5 Mg Tablet, 5 MG PO DAILY, (Reported) Oxybutynin Chloride 5 Mg Tablet, 10 MG PO HS, (Reported) Pantoprazole Sodium 40 Mg Tablet.dr, 40 MG PO DAILY, (Reported) Paroxetine HCl 20 Mg Tablet, 40 MG PO DAILY, (Reported) Pramipexole Di-HCl 1 Mg Tablet, 1 MG PO TID, (Reported) Rivaroxaban 20 Mg Tablet, 20 MG PO 1800, (Reported) Rivastigmine 1 Each Patch.td24, 13.3 MG TD 1900, (Reported) Sennosides/Docusate Sodium 1 Each Tablet, 1 EACH PO QID, (Reported) Tamsulosin HCl 0.4 Mg Cap.er.24h, 0.4 MG PO DAILY, (Reported) Constitutional: no symptoms reported, see HPI, fever, other (confusion) EENTM: see HPI, no symptoms reported Respiratory: cough, phlegm Cardiovascular: no symptoms reported, see HPI Gastrointestinal: no symptoms reported, see HPI Genitourinary: no symptoms reported, see HPI Musculoskeletal: no symptoms reported, see HPI Skin: no symptoms reported, see HPI Psychiatric/Neurological: No Symptoms Reported, See HPI Hematologic/Lymphatic: No Symptoms Reported, See HPI Immunological/Allergic: no symptoms reported, see HPI Past Wpkjhkg-Vjmilu-Vymtlv Hx Patient Social History Alcohol Beverage of Choice: Beer Type Used: Cigarettes Former Smoker, Quit: Feb 27, 1979 2nd Hand Smoke Exposure: No Recent Foreign Travel: No Contact w/Someone Who Travel: No Recent Infectious Disease Expo: No Recent Hopitalizations: Yes (07/2016 PNEUMONIA) Immunizations Up To Date Tetanus Booster (TDap): Unknown PED Vaccines UTD: Yes Date of Pneumonia Vaccine: Jan 30, 2014 Date of Influenza Vaccine: Sep 01, 2017 Seasonal Allergies Seasonal Allergies: No Surgeries History of Surgeries: Yes ( TEETH PULLED, ULCER SX, BACK SX X2, OPEN HEART SURGERY WITH X 3 BYPASS) Surgeries: Abdominal, Appendectomy, CABG, Orthopedic, Pacemaker Respiratory History of Respiratory Disorde: Yes Respiratory Disorders: Pneumonia Currently Using CPAP: No Currently Using BIPAP: No Cardiovascular History of Cardiac Disorders: Yes (PACEMAKER. CAROTID DISEASE. 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 AV BLOCK. RBBB) Cardiac Disorders: Atrial Fibrillation, Coronary Artery Disease, Heart Attack, High Cholesterol, Hypertension Neurological History of Neurological Disord: Yes (HX acute dementia) Neurological Disorders: Dementia, Parkinson's Disease Reproductive System Hx Reproductive Disorders: No Sexually Transmitted Disease: No HIV/AIDS: No Genitourinary History of Genitourinary Disor: Yes Genitourinary Disorders: Kidney Stones, Renal Failure Gastrointestinal History of Gastrointestinal Di: Yes Gastrointestinal Disorders: Gastroesophageal Reflux, Chronic Constipation, Ulcer Musculoskeletal History of Musculoskeletal Dis: Yes (CHRONIC GENERALIZED PAIN. CHRONIC LEG CRAMPS, spinal stenosis) Musculoskeletal Disorders: Arthritis, Back Injury, Chronic Back Pain Endocrine History of Endocrine Disorders: No HEENT Loss of Vision: Bilateral Hearing Impairment: Hard of Hearing Cancer History of Cancer: No Psychosocial History of Psychiatric Problem: Yes (hx of dementia/zain) Behavioral Health Disorders: Anxiety Integumentary History of Skin or Integumenta: No Blood Transfusions History of Blood Disorders: No Adverse Reaction to a Blood Tr: No Family Medical History Significant Family History: No Pertinent Family Hx Family Medial History: Cancer 03 FATHER, Onset:60 years & older Cancer of colon 09 BROTHER, Onset:60 years & older Congestive heart failure 03 MOTHER, Onset:60 years & older 09 BROTHER, Onset:60 years & older Family history: Diabetes mellitus 09 BROTHER, Onset:50's - 60 Myocardial infarction 09 BROTHER (colon ca) No Family History of: Congenital heart disease Physical Exam-Suspected Sepsis Physical Exam Vital Signs Vital Signs - First Documented 01/23/18 19:20 Temp 101.0 Pulse 80 Resp 28 B/P (MAP) 165/116 (132) Pulse Ox 92 O2 Delivery Room Air Capillary Refill : Less Than 3 Seconds Blood Pressure Mean: 132 General Appearance: No Apparent Distress, WD/WN, Thin, Other (temp 101) Eyes: Bilateral Eye Normal Inspection, Bilateral Eye PERRL, Bilateral Eye EOMI HEENT: Normal ENT Inspection Neck: Full Range of Motion, Normal Inspection Respiratory: No Accessory Muscle Use, No Respiratory Distress, Decreased Breath Sounds Cardiovascular: Regular Rate, Rhythm, Normal Peripheral Pulses Gastrointestinal: Normal Bowel Sounds, Non Tender, Soft Extremity: Normal Capillary Refill, Normal Inspection Neurologic/Psychiatric: Alert, Disoriented x3, Other (disoriented to person place and time. ) Skin: normal color, warm/dry Focused Exam Evaluation Lactate Level Laboratory Tests 01/23/18 19:35: Lactic Acid Level 1.52 Lactic Acid Level Laboratory Tests Test 01/23/18 19:35 Lactic Acid Level 1.52 MMOL/L (0.50-2.00) Progress/Results/Core Measures Suspected Sepsis Recent Fever Within 48 Hours: No Infection Criteria Present: None New/Unexplained Altered Menta: Yes Sepsis Screen: No Definite Risk Sepsis Diagnosis: SIRS Temperature:101.0 Pulse: 80 Respiratory Rate: 28 Laboratory Tests 01/23/18 19:35: White Blood Count 9.9 Blood Pressure 165 /116 Mean: 132 Laboratory Tests 01/23/18 19:35: Lactic Acid Level 1.52 Laboratory Tests 01/23/18 19:35: Creatinine 1.30, Platelet Count 219, Total Bilirubin 0.7 Results/Orders Lab Results Laboratory Tests Test 01/23/18 19:35 01/23/18 21:00 Range/Units White Blood Count 9.9 4.3-11.0 10^3/uL Red Blood Count 3.90 L 4.35-5.85 10^6/uL Hemoglobin 12.6 L 13.3-17.7 G/DL Hematocrit 38 L 40-54 % Mean Corpuscular Volume 97 80-99 FL Mean Corpuscular Hemoglobin 32 25-34 PG Mean Corpuscular Hemoglobin Concent 33 32-36 G/DL Red Cell Distribution Width 13.9 10.0-14.5 % Platelet Count 219 130-400 10^3/uL Mean Platelet Volume 9.7 7.4-10.4 FL Neutrophils (%) (Auto) 80 H 42-75 % Lymphocytes (%) (Auto) 9 L 12-44 % Monocytes (%) (Auto) 9 0-12 % Eosinophils (%) (Auto) 2 0-10 % Basophils (%) (Auto) 0 0-10 % Neutrophils # (Auto) 7.9 H 1.8-7.8 X 10^3 Lymphocytes # (Auto) 0.9 L 1.0-4.0 X 10^3 Monocytes # (Auto) 0.9 0.0-1.0 X 10^3 Eosinophils # (Auto) 0.2 0.0-0.3 10^3/uL Basophils # (Auto) 0.0 0.0-0.1 10^3/uL Sodium Level 137 135-145 MMOL/L Potassium Level 5.3 H 3.6-5.0 MMOL/L Chloride Level 100 98-107 MMOL/L Carbon Dioxide Level 23 21-32 MMOL/L Anion Gap 14 5-14 MMOL/L Blood Urea Nitrogen 21 H 7-18 MG/DL Creatinine 1.30 0.60-1.30 MG/DL Estimat Glomerular Filtration Rate 53 BUN/Creatinine Ratio 16 Glucose Level 143 H 70-105 MG/DL Lactic Acid Level 1.52 0.50-2.00 MMOL/L Calcium Level 9.7 8.5-10.1 MG/DL Total Bilirubin 0.7 0.1-1.0 MG/DL Aspartate Amino Transf (AST/SGOT) 32 5-34 U/L Alanine Aminotransferase (ALT/SGPT) 7 0-55 U/L Alkaline Phosphatase 104 40-136 U/L C-Reactive Protein High Sensitivity 1.61 H 0.00-0.50 MG/DL B-Type Natriuretic Peptide 124.6 H <100.0 PG/ML Total Protein 8.2 6.4-8.2 GM/DL Albumin 4.7 H 3.2-4.5 GM/DL Urine Color YELLOW Urine Clarity CLEAR Urine pH 6.5 5-9 Urine Specific Wilson 1.015 L 1.016-1.022 Urine Protein 2+ H NEGATIVE Urine Glucose (UA) NEGATIVE NEGATIVE Urine Ketones 2+ H NEGATIVE Urine Nitrite NEGATIVE NEGATIVE Urine Bilirubin NEGATIVE NEGATIVE Urine Urobilinogen NORMAL NORMAL MG/DL Urine Leukocyte Esterase 1+ H NEGATIVE Urine RBC (Auto) 2+ H NEGATIVE Urine RBC 5-10 H /HPF Urine WBC 2-5 /HPF Urine Squamous Epithelial Cells 0-2 /HPF Urine Crystals NONE /LPF Urine Bacteria NONE /HPF Urine Casts NONE /LPF Urine Mucus NEGATIVE /LPF Urine Culture Indicated NO Micro Results Microbiology 01/23/18 Influenza Types A,B Antigen (KATHIE) - Final, Complete My Orders Orders - DAVID MURRIETA APRN Lactic Acid Analyzer (01/23/18 19:38) Blood Culture (01/23/18 19:38) Acetaminophen Tablet (Tylenol Tablet) (01/23/18 19:45) Ns Iv 1000 Ml (Sodium Chloride 0.9%) (01/23/18 19:45) BNP (01/23/18 20:52) Ct Head Wo (01/23/18 21:08) Medications Given in ED Current Medications Medications Dose Ordered Sig/Fredi Route Start Time Stop Time Status Last Admin Dose Admin Acetaminophen 1,000 mg ONCE ONCE PO 01/23/18 19:45 01/23/18 19:46 DC 01/23/18 19:48 1,000 MG Vital Signs/I&O Vital Sign - Last 12Hours 01/23/18 19:20 Temp 101.0 Pulse 80 Resp 28 B/P (MAP) 165/116 (132) Pulse Ox 92 O2 Delivery Room Air Capillary Refill : Less Than 3 Seconds Blood Pressure Mean: 132 Diagnostic Imaging Diagonstic Imaging: Xray Plain Films/CT/US/NM/MRI: chest Comments NAME: MANISHA PRUITT [facility] REC#: [id number] PT STATUS: REG ER : 1935 PHYSICIAN: CLAUDIA WEN MD ADMIT DATE: 01/23/18/ER Draft Date of Exam:01/23/18 CHEST 1 VIEW, AP/PA ONLY INDICATION: Delirium starting around 2:00 in the afternoon. Also with cough for the past couple of days. TECHNIQUE: Single view chest, 8:13 p.m. CORRELATION STUDY: 10/31/2017. FINDINGS: Patient is poststernotomy. There is presence of a left-sided unipolar pacemaker, stable. Heart size is enlarged. Vasculature is slightly increased from prior study. Chronic type changes about the lung ramirez. No focal infiltrate. Mildly prominent interstitial markings compatible with mild edema. IMPRESSION: Cardiac enlargement with borderline vasculature. A component of mild interstitial edema appears to be present. Dictated on workstation # [id number] Dict: 01/23/182038 Trans: 01/23/1820[address] [facility] [id number] Interpreted by: MITCHELL GUTIERREZ DO Electronically signed by: Departure Communication (Admissions) Time/Spoke to Admitting Phy: 21:56 Family Conversation [phone] the degree of confusion is difficult to assess given his baseline dementia. However one of our ER nurses is his neighbor and he typically recognizes this nurse and does not recognize the nurse tonight. However, he was febrile here at 101, currently 99. Did receive a 1 L bolus of fluids in the emergency room. I did discuss the case with Dr. Flood. We'll admit patient observation status, empiric Rocephin, reevaluate in the morning. Progress Notes NAME: MANISHA PRUITT [facility] REC#: [id number] PT STATUS: REG ER : 1937 PHYSICIAN: CLAUDIA WEN MD ADMIT DATE: 01/23/18/ER Draft Date of Exam:01/23/18 CHEST 1 VIEW, AP/PA ONLY INDICATION: Delirium starting around 2:00 in the afternoon. Also with cough for the past couple of days. TECHNIQUE: Single view chest, 8:13 p.m. CORRELATION STUDY: 10/31/2017. FINDINGS: Patient is poststernotomy. There is presence of a left-sided unipolar pacemaker, stable. Heart size is enlarged. Vasculature is slightly increased from prior study. Chronic type changes about the lung ramirez. No focal infiltrate. Mildly prominent interstitial markings compatible with mild edema. IMPRESSION: Cardiac enlargement with borderline vasculature. A component of mild interstitial edema appears to be present. Dictated on workstation # [id number] Dict: 01/23/182038 Trans: 01/23/1820[address] [facility] [id number] Interpreted by: MITCHELL GUTIERREZ DO Electronically signed by: Impression Impression: Primary Impression: Influenza-like illness Additional Impressions: Altered mental status Bronchitis Disposition: ADMITTED INPATIENT Condition: Stable Admissions Decision to Admit Reason: Admit from ER (General) Decision to Admit/Date: Jan 23, 2018 Time/Decision to Admit Time: 21:57 Departure-Patient Inst. Referrals: GERRY MEEK MD (PCP/Family) Primary Care Physician DAVID MURRIETA APRN Jan 23, 2018 19:48
[2018-01-23 20:07] LABS: ALBUMIN 4.7 GM/DL (3.2-4.5); BILIRUBIN,TOTAL 0.7 MG/DL (0.1-1.0); CALCIUM 9.7 MG/DL (8.5-10.1); CREATININE SERUM 1.3 MG/DL (0.60-1.30); POTASSIUM 5.3 MMOL/L (3.6-5.0); TOTAL PROTEIN 8.2 GM/DL (6.4-8.2)
[2018-01-23] MEDS ORDERED: ALPR0.254 PO (20:08)
--- NOTE | 2018-01-23 20:44 | Diagnostic Imaging Report ---
INDICATION: Delirium starting around 2:00 in the afternoon. Also with cough for the past couple of days. TECHNIQUE: Single view chest, 8:13 p.m. CORRELATION STUDY: 10/31/2017. FINDINGS: Patient is poststernotomy. There is presence of a left-sided unipolar pacemaker, stable. Heart size is enlarged. Vasculature is slightly increased from prior study. Chronic type changes about the lung ramirez. No focal infiltrate. Mildly prominent interstitial markings compatible with mild edema. IMPRESSION: Cardiac enlargement with borderline vasculature. A component of mild interstitial edema appears to be present. Dictated by: Dictated on workstation # [id number]
[2018-01-23 21:04] LABS: BILIRUBIN,URINE NEGATIVE (NEGATIVE); CLARITY,URINE CLEAR; COLOR,URINE YELLOW; GLUCOSE, URINE (UA) NEGATIVE (NEGATIVE); KETONES,URINE 2+ (NEGATIVE); LEUKOCYTE ESTERASE ,URINE 1+ (NEGATIVE); NITRITE,URINE NEGATIVE (NEGATIVE); PH,URINE 6.5 (5-9); PROTEIN,URINE 2+ (NEGATIVE); UROBILINOGEN,URINE NORMAL (NORMAL)
[2018-01-23 21:41] LABS: SQUAMOUS EPITHELIAL CELL,UR 0-2 /HPF
--- NOTE | 2018-01-23 21:48 | Diagnostic Imaging Report ---
PROCEDURE: CT head without contrast. TECHNIQUE: Multiple contiguous axial images were obtained through the brain without the use of intravenous contrast. INDICATION: Altered mental status. COMPARISON: 07/11/2016 FINDINGS: There are diffuse atrophic changes with prominence of the ventricles and sulci. There are scattered areas of decreased attenuation, nonspecific but likely changes of chronic small vessel ischemic disease. There is otherwise normal miller-white differentiation. No abnormal areas of attenuation to suggest edema from ischemia. There is no midline shift or mass effect. No evidence for acute intracranial hemorrhage or abnormal extra-axial fluid collection. Bony calvarium is intact. Paranasal sinuses are with scattered areas of mucosal thickening. Mastoid air cells also appear clear. IMPRESSION: 1. No CT evidence for acute intracranial abnormality. 2. Age-related atrophic changes with changes of small vessel ischemic disease. Dictated by: Dictated on workstation # [id number]
[2018-01-23 23:45] VITALS: BP 165/69
[2018-01-23] MEDS ORDERED: IBUPROFEN 600 MG (MOTRIN) TAB PO PRN (23:45)
[2018-01-23] MEDS ORDERED: ACETAMINOPHEN 325 MG TABLET/CAPLET (TYLENOL) PO PRN (23:45)
[2018-01-24] VITALS: BP 133/60
[2018-01-24] MEDS ORDERED: RT-ALBUTEROL/IPRATROPIUM 3 ML (DUONEB) VIAL INH PRN
[2018-01-24] MEDS: cefTRIAXone 1,000 MG/NS 50 ML IVPB IV SCH ×4 (00:03→23:55)
[2018-01-24] MEDS: BENZONATATE 100 MG (TESSALON) CAPSULE PO SCH ×4 (00:04→20:22)
[2018-01-24 04:00] VITALS: BP 148/68
[2018-01-24 06:36] LABS: BASOPHILS % (AUTO) 0 % (0-10); EOSINOPHILS % (AUTO) 1 % (0-10); HEMATOCRIT 33 % (40-54); HEMOGLOBIN 10.8 G/DL (13.3-17.7); LYMPHOCYTES # (AUTO) 0.8 X 10^3 (1.0-4.0); LYMPHOCYTES % (AUTO) 12 % (12-44); MEAN CORPUSCULAR HEMOGLOBIN 32 PG (25-34); MEAN CORPUSCULAR HGB CONC 33 G/DL (32-36); MEAN CORPUSCULAR VOLUME 98 FL (80-99); MONOCYTES # (AUTO) 0.8 X 10^3 (0.0-1.0); MONOCYTES % (AUTO) 12 % (0-12); NEUTROPHILS # (AUTO) 5.1 X 10^3 (1.8-7.8); NEUTROPHILS % (AUTO) 75 % (42-75); PLATELET COUNT 186 10^3/uL (130-400); RED CELL DISTRIBUTION WIDTH 14.4 % (10.0-14.5); WHITE BLOOD COUNT 6.7 10^3/uL (4.3-11.0)
[2018-01-24 08:00] VITALS: BP 133/75
--- NOTE | 2018-01-24 08:19 | Diagnostic Imaging Report ---
INDICATION: Cough and fever. Frontal chest obtained at 3:21 a.m. and compared with yesterday. FINDINGS: There is poststernotomy change with unchanged pacemaker device. Heart is borderline in size. There is no focal consolidation or pneumothorax or pleural fluid. IMPRESSION: Postoperative changes and borderline cardiomegaly. No focal consolidation or pneumothorax or pleural fluid. Stable appearance compared to yesterday. Dictated by: Dictated on workstation # [id number]
[2018-01-24] MEDS ORDERED: CARB1TAB40 PO (08:58)
[2018-01-24] MEDS ORDERED: HYDR-3812 PO (09:03)
[2018-01-24] MEDS ORDERED: OXYB5TAB9 PO ×2 (09:05)
[2018-01-24] MEDS ORDERED: TAMS0.4C2 PO (09:07)
[2018-01-24] MEDS ORDERED: PARO20TA5 PO (09:07)
[2018-01-24] MEDS ORDERED: NITR0.4T42 SL (09:10)
[2018-01-24] MEDS ORDERED: BENZ200C51 PO (09:11)
[2018-01-24] MEDS ORDERED: SENN-1 PO (09:13)
[2018-01-24] MEDS ORDERED: CALC625T PO (09:14)
[2018-01-24] MEDS ORDERED: PRAM1TAB5 PO (09:39)
[2018-01-24] MEDS ORDERED: ALPR0.254 PO (09:42)
[2018-01-24] MEDS ORDERED: NITROGLYCERIN 0.4 MG SL TABS BTL 25'S SL PRN (10:45)
--- NOTE | 2018-01-24 10:49 | History & Physical-Hospitalist ---
HPI History of Present Illness: HPI/Chief Complaint is a frail 82-year-old white male with advanced Parkinson's and secondary dementia who was in is usual state of health up until about 3 days ago according to his . He developed cough with congestion predominantly nonpurulent. He starting having some chills with fever the evening before his admission with progressive confusion. Due to fever with increased confusion and the fact that he had a similar admission when he had pneumonia last fall was brought him to the emergency room. There he wassignificantly confused and lethargic. Influenza testing was negative and he did not have chest x-ray evidence for pneumonia but due to delirium extreme fatigue and flulike symptoms Tamiflu was initiated and he was admitted now. Upon my arrival this morning the patient was sleeping with eyes closed and exhibiting apneic episodes without evidence for obstruction lasting 20+ seconds. These were not terminated by tachypnea compatible with central sleep apnea and not Ravi- Lu respiratory pattern. He was able to the answer simple questions but really couldn't tell me anything about his current illness stating he had no recollection of the past several days. He had a loose sounding nonproductive cough duringthe interview and was slow to respond with evidence for inattention having to be redirected on multiple occasions to answer my questions. I was able to obtain history from his quite talked with him the hallway who came after our initial interview and examination. She confirmed history as per above with no other reported changes. He had not had any problems with nausea vomiting constipation or reports of chest pain. She had not noted that he been able to cough up any sputum. Date Seen 01/24/18 Time Seen by Provider: 09:15 Attending Physician Gerry Jane M.D. PCP Gerry Jane MD Referring Physician Date of Admission Jan 23, 2018 at 22:23 Home Medications & Allergies Home Medications Reviewed patient Home Medication Reconciliation Form Allergies Allergies Coded Allergies gabapentin (Verified Allergy, Unknown, 02/27/17) morphine (Verified Allergy, Unknown, PT TAKES HYDROCODONE @ HOME, 02/27/17) Past Ftbwdxh-Bctxru-Ltoprx Hx Patient Social History Alcohol Use: Denies Use Number of Drinks Today: AA Alcohol Beverage of Choice: Beer Recreational Drug Use: No Smoking Status: Former Smoker Former Smoker, Quit: Feb 27, 1979 Type Used: Cigarettes 2nd Hand Smoke Exposure: No Physical Abuse Screen: No Sexual Abuse: No Recent Foreign Travel: No Contact w/other who traveled: No Recent Hopitalizations: No (07/2016 PNEUMONIA) Recent Infectious Disease Expo: No Immunizations Up To Date Tetanus Booster (TDap): Unknown Pediatric: Yes Date of Pneumonia Vaccine: Jan 30, 2014 Date of Influenza Vaccine: Sep 01, 2017 Seasonal Allergies Seasonal Allergies: No Surgeries Yes ( TEETH PULLED, ULCER SX, BACK SX X2, OPEN HEART SURGERY WITH X 3 BYPASS) Abdominal, Appendectomy, CABG, Orthopedic, Pacemaker Respiratory Yes Pneumonia Currently Using CPAP: No Currently Using BIPAP: No Cardiovascular Yes (PACEMAKER. CAROTID DISEASE. 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 AV BLOCK. RBBB) Atrial Fibrillation, Coronary Artery Disease, Heart Attack, High Cholesterol, Hypertension Neurological Yes (HX acute dementia) Dementia, Parkinson's Disease Reproductive System Hx Reproductive Disorders: No Sexually Transmitted Disease: No HIV/AIDS: No Genitourinary Yes Kidney Stones, Renal Failure Gastrointestinal Yes Gastroesophageal Reflux, Chronic Constipation, Ulcer Musculoskeletal Yes (CHRONIC GENERALIZED PAIN. CHRONIC LEG CRAMPS, spinal stenosis) Arthritis, Back Injury, Chronic Back Pain Endocrine History of Endocrine Disorders: No HEENT Loss of Vision: Bilateral Hearing Impairment: Hard of Hearing Cancer No Psychosocial History of Psychiatric Problem: Yes (hx of dementia/zain) Behavioral Health Disorders: Anxiety Integumentary History of Skin or Integumenta: No Blood Transfusions History of Blood Disorders: No Adverse Reaction to a Blood Tr: No Family Medical History Significant Family History: No Pertinent Family Hx Family Hx: Cancer 03 FATHER, Onset:60 years & older Cancer of colon 09 BROTHER, Onset:60 years & older Congestive heart failure 03 MOTHER, Onset:60 years & older 09 BROTHER, Onset:60 years & older Family history: Diabetes mellitus 09 BROTHER, Onset:50's - 60 Myocardial infarction 09 BROTHER (colon ca) No Family History of: Congenital heart disease Review of Systems Constitutional: chills, fever, malaise Respiratory: No no symptoms reported, No see HPI, cough, dyspnea on exertion, No hemoptysis, orthopnea, No phlegm, short of breath, No stridor, No wheezing, No other Cardiovascular: no symptoms reported, see HPI, No chest pain, No edema, Hx of Intervention, No palpitations, No syncope, vascular heart diseas, No other Physical Exam Physical Exam Vital Signs Vital Signs - First Documented 01/23/18 01/24/18 19:20 04:00 Temp 101.0 Pulse 80 Resp 28 B/P (MAP) 165/116 (132) Pulse Ox 92 O2 Delivery Room Air O2 Flow Rate 2.00 Capillary Refill : Less Than 3 Seconds General Appearance: Chronically ill, Thin Neck: Full Range of Motion, Normal Inspection, Non Tender, Supple Respiratory: Chest Non Tender, No Accessory Muscle Use, No Respiratory Distress , Other (cattered rhonchi without focal consolidative findings. With cough there are some mild expiratory wheezing no wheezing with regular respiration) Cardiovascular: Regular Rate, Rhythm, No Edema, No Gallop, No JVD, No Murmur, Normal Peripheral Pulses Gastrointestinal: Normal Bowel Sounds, No Organomegaly, No Pulsatile Mass, Non Tender, Soft Extremity: Normal Inspection, Normal Range of Motion, Non Tender, No Calf Tenderness, No Pedal Edema Neurologic/Psychiatric: Other (confused with inattention and oriented 1 no focal neurologic findings noted.) Results Results/Procedures Lab Laboratory Tests 01/23/18 19:35 01/24/18 05:59 Assessment/Plan Admission Diagnosis 1. Febrile likely viral related illness with flulike symptoms. While he tested negative via nasal swab Tamiflu was initiated and I will continue this. 2. Debility with delirium aggravated by number 1. e will put an order in for physical therapy to begin tomorrow. 3. Parkinson's disease with baseline dementia mild to moderate secondary to Parkinson's. We'll continue Exelon patch and Sinemet 4. Paroxysmal atrial fibrillation we'll continue anticoagulant therapy. 5. History of coronary artery disease with past bypass and previous stent placements although all in the distant past. Clinical Quality Measures DVT/VTE Risk/Contraindication: Risk Factor Score Per Nursin RFS Level Per Nursing on Admit: 4+=Very High GERRY JANE MD Jan 24, 2018 10:49
[2018-01-24] MEDS ORDERED: HYDROcodone/APAP 5 MG/325 MG (LORTAB) TAB PO PRN (11:00)
[2018-01-24] MEDS ORDERED: fentaNYL PATCH 100 MCG (DURAGESIC) TD SCH (11:00)
[2018-01-24 12:00] VITALS: BP 123/69
[2018-01-24] MEDS ORDERED: PATIENT MAY USE OWN MED,SINGLE MED PO SCH (13:00)
[2018-01-24] MEDS: LEVODOPA PO SCH ×3 (14:01→20:20)
[2018-01-24] MEDS: CARBIDOPA PO SCH ×3 (14:01→20:20)
[2018-01-24 16:50] VITALS: BP 152/71
[2018-01-24] MEDS: RIVAROXABAN 20 MG TABLET (XARELTO) PO SCH (17:39)
[2018-01-24] MEDS: RIVASTIGMINE 13.3 MG TD SCH (17:41)
[2018-01-24] MEDS: SENNA W/DOCUSATE (SENOKOT S) TABLET PO SCH (20:21)
[2018-01-24] MEDS: ASPIRIN E.C. 81 MG (ECOTRIN) TAB PO SCH (20:22)
[2018-01-24 20:59] VITALS: BP 144/56
[2018-01-25] VITALS: BP 143/81
[2018-01-25 04:00] VITALS: BP 126/63
[2018-01-25] MEDS: PANTOPRAZOLE 40 MG (PROTONIX) TAB PO SCH (06:29)
[2018-01-25 07:47] VITALS: BP 164/71
--- NOTE | 2018-01-25 08:22 | Progress Note-Hospitalist ---
Subjective HPI/CC On Admission Date Seen by Provider: Jan 25, 2018 Time Seen by Provider: 08:15 is a frail 82-year-old white male with advanced Parkinson's and secondary dementia who was in is usual state of health up until about 3 days ago according to his . He developed cough with congestion predominantly nonpurulent. He starting having some chills with fever the evening before his admission with progressive confusion. Due to fever with increased confusion and the fact that he had a similar admission when he had pneumonia last fall was brought him to the emergency room. There he wassignificantly confused and lethargic. Influenza testing was negative and he did not have chest x-ray evidence for pneumonia but due to delirium extreme fatigue and flulike symptoms Tamiflu was initiated and he was admitted now. Upon my arrival this morning the patient was sleeping with eyes closed and exhibiting apneic episodes without evidence for obstruction lasting 20+ seconds. These were not terminated by tachypnea compatible with central sleep apnea and not Ravi- Ul respiratory pattern. He was able to the answer simple questions but really couldn't tell me anything about his current illness stating he had no recollection of the past several days. He had a loose sounding nonproductive cough duringthe interview and was slow to respond with evidence for inattention having to be redirected on multiple occasions to answer my questions. I was able to obtain history from his quite talked with him the hallway who came after our initial interview and examination. She confirmed history as per above with no other reported changes. He had not had any problems with nausea vomiting constipation or reports of chest pain. She had not noted that he been able to cough up any sputum. Subjective/Events-last exam Pt was sleeping upon my arrival. He aroused to physical stimuli but did not speak. Objective Exam Vital Signs Vital Signs Date Time Temp Pulse Resp B/P (MAP) Pulse Ox O2 Delivery O2 Flow Rate FiO2 01/23/18 19:20 101.0 80 28 165/116 (132) 92 Room Air 01/24/18 04:00 2.00 Capillary Refill : Less Than 3 Seconds General Appearance: No Apparent Distress, WD/WN Respiratory: No Accessory Muscle Use, No Respiratory Distress, Rhonci, No Wheezing Cardiovascular: Regular Rate, Rhythm, No Murmur Gastrointestinal: Normal Bowel Sounds, Non Tender, Soft Assessment/Plan Assessment and Plan Assess & Plan/Chief Complaint 1. Febrile likely viral related illness with flulike symptoms. Rapid flu negative but treating empirically based on symptoms- currently needing oxygen, will need home oxygen testing prior to DC 2. Debility with delirium aggravated by above. PT/OT to evaluate 3. Parkinson's disease with baseline dementia mild to moderate secondary to Parkinson's. Continue Exelon patch and Sinemet 4. Paroxysmal atrial fibrillation- continue anticoagulant therapy, rate well controlled 5. History of coronary artery disease with past bypass and previous stent placements although all in the distant past. Continue ASA 6. HTN- continue home antihypertensives GAURI ANDRES MD Jan 25, 2018 8:22 am
--- NOTE | 2018-01-25 08:48 | Physical Therapy Evaluation ---
PT Evaluation-General Medical Diagnosis Admission Date Jan 24, 2018 at 10:20 Medical Diagnosis: Parkinson's, Viral bronchitis, debility Onset Date: Jan 23, 2018 Therapy Diagnosis Therapy Diagnosis: impaired mobility, strength, endurance, balance Height/Weight Height (Feet): 5 Height (Inches): 7.00 Weight (Pounds): 142 Weight (Ounces): 0.0 Precautions Precautions/Isolations: Droplet Isolation, Fall Prevention Referral Physician: Marcell Meek MD Reason for Referral: Evaluation/Treatment Medical History Pertinent Medical History: Atrial Fib, CABG, CAD, Heart Failure, HTN, [place], OA, Parkinson's Additional Medical History dementia, former smoker, high cholesterol, kidney stones, renal failure, WALES, anxiety, surg (ulcer, back, coronary bypass, abdominal, appendectomy, pacemaker , orthopedic) Current History Patient went to ER with fever, cough, confusion Reviewed History: Yes Social History Home: Single Level Current Living Status: Spouse Entry Into Home: Stairs With Railing PT Steps Into Home: 2 Prior/Core FIM Prior Level of Function Functional Gila Measure 0=Not Assessed/NA 4=Minimal Assistance 1=Total Assistance 5=Supervision or Setup 2=Maximal Assistance 6=Modified Gila 3=Moderate Assistance 7=Complete Gila unclear per patient report PT Evaluation-Current Subjective Patient in bed pre tx, agrees to PT, has no complaints of pain. Pt/Family Goals to be independent at home Objective Patient Orientation: Person, Confused Attachments: Oxygen (2L) ROM/Strength ROM Lower Extremities WNL, hard to test because patient resists movement Strength Lower Extremities 4+/5 gross BLE Neuromuscular (Tone, Coordination, Reflexes) NT Sensory Vision: Wears Glasses Hearing: Impaired Sensation Right Lower Extremit: Impaired Sensation Left Lower Extremity: Impaired Sensation Lower Extremities Unable to test accurately. Patient seemed to have decreased sensation below the knees. Transfers Functional Gila Measure 0=Not Assessed/NA 4=Minimal Assistance 1=Total Assistance 5=Supervision or Setup 2=Maximal Assistance 6=Modified Gila 3=Moderate Assistance 7=Complete Gila Transfers (B, C, W/C) (FIM): 4 Scootin Rollin Supine to/from Sit: 4 Sit to/from Stand: 4 Cues for hand placement and positioning. Needs extra time for transitions. Gait Mode of Locomotion: Walk Anticipated Mode of Locomotion: Walk Gait (FIM): 2 Distance: 70' Gait Level of Assist: 4 Gait Persons Needed: 1 Gait Assistive Device: FWW Comments/Gait Description Needs assist guiding the walker. Balance Sitting Static: Fair Sitting Dynamic: Fair Standing Static: Fair Standing Dynamic: Fair Assessment/Needs Patient has impaired mobility , strength, endurance, balance. He is at risk for a fall. Patient placed in recliner post tx with nurse call, phone, tray, chair alarm on. Rehab Potential: Fair PT Short Term Goals Short Term Goals Time Frame: Feb 01, 2018 Transfers (B,C,W/C) (FIM): 5 Gait (FIM): 2 Gait Distance Comment: 100' Gait Level of Assist: 4 Gait Assistive Device: FWW PT Plan Problem List Problem List: Activity Tolerance, Functional Strength, Safety, Balance, Gait, Transfer, Bed Mobility, ROM Treatment/Plan Treatment Plan: Continue Plan of Care Treatment Plan: Bed Mobility, Education, Functional Activity Cesar, Functional Strength, Gait, Safety, Therapeutic Exercise, Transfers Treatment Duration: Feb 01, 2018 Frequency: 6 times per week Estimated Hrs Per Day: .25 hour per day (15-30') Patient and/or Family Agrees t: Yes Safety Risks/Education Patient Education: Gait Training, Transfer Techniques, Correct Positioning, Safety Issues Teaching Recipient: Patient Teaching Methods: Demonstration, Discussion Response to Teaching: Reinforcement Needed Discharge Recommendations Plan Patient will perform bed mobility and transfer training, balance and endurance training, functional strengthening, stair training, gait training, and education , to improve functional mobility and independence at home. Therapy D/C Recommendations: Home w/ Family Support Time/GCodes Time In: 820 Time Out: 840 Total Billed Treatment Time: 20 Total Billed Treatment 1 visit ALEKSANDAR 20' JULIAN SIERRA PT Jan 25, 2018 08:47
[2018-01-25] MEDS: BENZONATATE 100 MG (TESSALON) CAPSULE PO SCH ×3 (09:17→20:24)
[2018-01-25] MEDS: ISOSORBIDE MONONITRATE 30 MG (IMDUR) TAB PO SCH (09:17)
[2018-01-25] MEDS: PARoxetine 20 MG (PAXIL) TAB PO SCH (09:17)
[2018-01-25] MEDS: TAMSULOSIN 0.4 MG (FLOMAX) CAP PO SCH (09:17)
[2018-01-25] MEDS: SENNA W/DOCUSATE (SENOKOT S) TABLET PO SCH ×2 (09:17→20:24)
[2018-01-25] MEDS: CARBIDOPA PO SCH ×4 (09:18→20:24)
[2018-01-25] MEDS: LEVODOPA PO SCH ×4 (09:18→20:24)
[2018-01-25] MEDS: CAL. POLYCARBOPHIL 625 MG (FIBERCON) TAB PO SCH (09:23)
[2018-01-25 12:00] VITALS: BP 151/67
[2018-01-25 16:00] VITALS: BP 107/55
[2018-01-25] MEDS: RIVAROXABAN 20 MG TABLET (XARELTO) PO SCH (17:45)
[2018-01-25] MEDS: RIVASTIGMINE 13.3 MG TD SCH (17:52)
[2018-01-25 20:00] VITALS: BP 154/67
[2018-01-25] MEDS: ASPIRIN E.C. 81 MG (ECOTRIN) TAB PO SCH (20:24)
[2018-01-25] MEDS: cefTRIAXone 1,000 MG/NS 50 ML IVPB IV SCH ×2 (23:38)
[2018-01-26 01:49] VITALS: BP 182/90
[2018-01-26 03:04] VITALS: BP 192/86
[2018-01-26] MEDS ORDERED: ALPRAZolam 0.5 MG (XANAX) TAB PO PRN (03:15)
[2018-01-26] MEDS ORDERED: NITROGLYCERIN 2% OINT 1 GM UNIT DOSE PACKET TOP PRN (03:15)
[2018-01-26 03:27] VITALS: BP 190/84
[2018-01-26 05:52] LABS: BASOPHILS % (AUTO) 0 % (0-10); EOSINOPHILS # (AUTO) 0.2 10^3/uL (0.0-0.3); EOSINOPHILS % (AUTO) 2 % (0-10); HEMATOCRIT 36 % (40-54); HEMOGLOBIN 11.9 G/DL (13.3-17.7); LYMPHOCYTES # (AUTO) 1.3 X 10^3 (1.0-4.0); LYMPHOCYTES % (AUTO) 20 % (12-44); MEAN CORPUSCULAR HEMOGLOBIN 32 PG (25-34); MEAN CORPUSCULAR HGB CONC 33 G/DL (32-36); MEAN CORPUSCULAR VOLUME 97 FL (80-99); MEAN PLATELET VOLUME 9.8 FL (7.4-10.4); MONOCYTES # (AUTO) 0.7 X 10^3 (0.0-1.0); MONOCYTES % (AUTO) 10 % (0-12); NEUTROPHILS # (AUTO) 4.5 X 10^3 (1.8-7.8); NEUTROPHILS % (AUTO) 68 % (42-75); PLATELET COUNT 193 10^3/uL (130-400); RED BLOOD COUNT 3.75 10^6/uL (4.35-5.85); RED CELL DISTRIBUTION WIDTH 14.2 % (10.0-14.5); WHITE BLOOD COUNT 6.6 10^3/uL (4.3-11.0)
[2018-01-26] MEDS: PANTOPRAZOLE 40 MG (PROTONIX) TAB PO SCH (05:58)
[2018-01-26] MEDS ORDERED: NITROGLYCERIN 2% OINT 1 GM UNIT DOSE PACKET TOP SCH (06:00)
[2018-01-26 06:02] VITALS: BP 162/78
[2018-01-26 06:09] LABS: BUN/CREATININE RATIO 25; CALCIUM 8.8 MG/DL (8.5-10.1); CARBON DIOXIDE 25 MMOL/L (21-32); CHLORIDE 101 MMOL/L (98-107); CREATININE SERUM 0.92 MG/DL (0.60-1.30); GFR ESTIMATED > 60; GLUCOSE 93 MG/DL (70-105); SODIUM 137 MMOL/L (135-145)
[2018-01-26 08:00] VITALS: BP 183/84
[2018-01-26] MEDS: PARoxetine 20 MG (PAXIL) TAB PO SCH (09:01)
[2018-01-26] MEDS: CARBIDOPA PO SCH (09:01)
[2018-01-26] MEDS: TAMSULOSIN 0.4 MG (FLOMAX) CAP PO SCH (09:01)
[2018-01-26] MEDS: LEVODOPA PO SCH (09:01)
[2018-01-26] MEDS: ISOSORBIDE MONONITRATE 30 MG (IMDUR) TAB PO SCH (09:01)
[2018-01-26] MEDS: CAL. POLYCARBOPHIL 625 MG (FIBERCON) TAB PO SCH (09:01)
[2018-01-26] MEDS: BENZONATATE 100 MG (TESSALON) CAPSULE PO SCH (09:01)
[2018-01-26] MEDS: SENNA W/DOCUSATE (SENOKOT S) TABLET PO SCH (09:01)
--- NOTE | 2018-01-26 10:18 | Discharge Summary-Hospitalist ---
Diagnosis/Chief Complaint Date of Admission Jan 24, 2018 at 10:20 Date of Discharge Discharge Date: Jan 26, 2018 Admission Diagnosis 1. Febrile likely viral related illness with flulike symptoms. While he tested negative via nasal swab Tamiflu was initiated and I will continue this. 2. Debility with delirium aggravated by number 1. e will put an order in for physical therapy to begin tomorrow. 3. Parkinson's disease with baseline dementia mild to moderate secondary to Parkinson's. We'll continue Exelon patch and Sinemet 4. Paroxysmal atrial fibrillation we'll continue anticoagulant therapy. 5. History of coronary artery disease with past bypass and previous stent placements although all in the distant past. Discharge Diagnosis 1. Febrile likely viral related illness with flulike symptoms. Rapid flu negative- Tamiflu was never actually administered so will not continue on DC, was receiving Rocephin so will complete 5 day course with Amoxil as outpatient 2. Debility with delirium aggravated by above. PT/OT to evaluate- recommended DC home with family support 3. Parkinson's disease with baseline dementia mild to moderate secondary to Parkinson's. Continue Exelon patch and Sinemet 4. Paroxysmal atrial fibrillation- continue anticoagulant therapy, rate well controlled 5. History of coronary artery disease with past bypass and previous stent placements although all in the distant past. Continue ASA 6. HTN- continue home antihypertensives Discharge Summary Discharge Physical Examination Allergies: Coded Allergies: gabapentin (Verified Allergy, Unknown, 02/27/17) morphine (Verified Allergy, Unknown, PT TAKES HYDROCODONE @ HOME, 02/27/17) Vitals & I&Os Vital Signs Date Time Temp Pulse Resp B/P (MAP) Pulse Ox O2 Delivery O2 Flow Rate FiO2 01/26/18 10:08 0.00 01/26/18 08:00 96.6 61 18 183/84 (551) 91 Nasal Cannula Hospital Course Pt is a 82yoCM with a PMH of Parkinson's disease with moderate dementia who presented to the ER for cough, confusion, and weakness. He was found to be febrile as well. He was admitted and treated empirically for infection. He was never actually started on Tamiflu as was thought but was started on Rocephin by the ER. As he has had a remarkable improvement I will complete a course of CAP coverage for 2 more days. He is requesting discharge today and feels comfortable with plan to DC home with family support. He is to follow up this week with his PCP. Labs (last 24 hrs) Laboratory Tests 01/26/18 05:25: White Blood Count 6.6, Red Blood Count 3.75L, Hemoglobin 11.9L, Hematocrit 36L, Mean Corpuscular Volume 97, Mean Corpuscular Hemoglobin 32, Mean Corpuscular Hemoglobin Concent 33, Red Cell Distribution Width 14.2, Platelet Count 193, Mean Platelet Volume 9.8, Neutrophils (%) (Auto) 68, Lymphocytes (%) (Auto) 20, Monocytes (%) (Auto) 10, Eosinophils (%) (Auto) 2, Basophils (%) (Auto) 0, Neutrophils # (Auto) 4.5, Lymphocytes # (Auto) 1.3, Monocytes # (Auto) 0.7, Eosinophils # (Auto) 0.2, Basophils # (Auto) 0.0, Sodium Level 137, Potassium Level 4.0, Chloride Level 101, Carbon Dioxide Level 25, Anion Gap 11, Blood Urea Nitrogen 23H, Creatinine 0.92, Estimat Glomerular Filtration Rate > 60, BUN /Creatinine Ratio 25, Glucose Level 93, Calcium Level 8.8 Microbiology 01/23/18 Blood Culture - Preliminary, Resulted No growth 01/23/18 Influenza Types A,B Antigen (KATHIE) - Final, Complete Pending Labs Laboratory Tests 01/26/18 05:25: White Blood Count 6.6, Red Blood Count 3.75, Hemoglobin 11.9, Hematocrit 36, Mean Corpuscular Volume 97, Mean Corpuscular Hemoglobin 32, Mean Corpuscular Hemoglobin Concent 33, Red Cell Distribution Width 14.2, Platelet Count 193, Mean Platelet Volume 9.8, Neutrophils (%) (Auto) 68, Lymphocytes (%) (Auto) 20, Monocytes (%) (Auto) 10, Eosinophils (%) (Auto) 2, Basophils (%) (Auto) 0, Neutrophils # (Auto) 4.5, Lymphocytes # (Auto) 1.3, Monocytes # (Auto) 0.7, Eosinophils # (Auto) 0.2, Basophils # (Auto) 0.0, Sodium Level 137, Potassium Level 4.0, Chloride Level 101, Carbon Dioxide Level 25, Anion Gap 11, Blood Urea Nitrogen 23, Creatinine 0.92, Estimat Glomerular Filtration Rate > 60, BUN/ Creatinine Ratio 25, Glucose Level 93, Calcium Level 8.8 Discharge Home Medications: Active Scripts Active Reported Alprazolam 0.25 Mg Tablet 0.5 Mg PO DAILY PRN Pramipexole Dihydrochloride (Pramipexole Di-HCl) 1 Mg Tablet 1 Mg PO TID Fibercon (Calcium Polycarbophil) 625 Mg Tablet 625 Mg PO DAILY Senna S Tablet (Sennosides/Docusate Sodium) 1 Each Tablet 1 Each PO QID Benzonatate 200 Mg Capsule 200 Mg PO TID Nitroglycerin 0.4 Mg Tab.subl 0.4 Mg SL PRN PRN Tamsulosin HCl 0.4 Mg Cap.er.24h 0.4 Mg PO DAILY Paroxetine HCl 20 Mg Tablet 40 Mg PO DAILY Oxybutynin Chloride 5 Mg Tablet 10 Mg PO HS Oxybutynin Chloride 5 Mg Tablet 5 Mg PO DAILY Hydrocodone-Acetamin 5-325 mg (Hydrocodone/Acetaminophen) 1 Each Tablet 1-2 Each PO Q4H PRN Carbidopa-Levo ER 25-100 Tab (Carbidopa/Levodopa) 1 Each Tablet.er 1.5 Each PO QID Magnesium Oxide 250 Mg Tablet 250 Mg PO DAILY Multi-Vitamin Gummies (Folic Acid/Multivit-Min/Lutein) 1 Each Tab.chew 1 Tab.chew PO BID Pantoprazole Sodium 40 Mg Tablet.dr 40 Mg PO DAILY Rivastigmine 1 Each Patch.td24 13.3 Mg TD 1900 Ecotrin (Aspirin) 81 Mg Tablet.dr 81 Mg PO HS Isosorbide Mononitrate ER (Isosorbide Mononitrate) 30 Mg Tab.er.24h 30 Mg PO DAILY Xarelto (Rivaroxaban) 20 Mg Tablet 20 Mg PO 1800 Fentanyl Patch 100 MCG (Fentanyl) 1 Each Patch.td72 100 Mcg TD Q72H Instructions to patient/family Please see electronic discharge instructions given to patient. Clinical Quality Measures DVT/VTE Risk/Contraindication: Risk Factor Score Per Nursin RFS Level Per Nursing on Admit: 4+=Very High Copy Copies To 1: GERRY JANE MD, KATELYN M MD Jan 26, 2018 10:18
[2018-01-26] MEDS ORDERED: LACT1CAP72 PO (10:33)
[2018-01-26] MEDS ORDERED: AMOX875T2 PO (10:33)
--- NOTE | 2018-01-26 10:36 | Discharge Inst-Simple/Standard ---
Discharge Inst-Standard Discharge Medications New, Converted or Re-Newed RX: Call to Patients Pharmacy Patient Instructions/Follow Up Plan of Care/Instructions/FU: Please continue to take your medications as written. If your symptoms return or worsen please seek evaluation with you PCP or at the ER. Activity as Tolerated: Yes Discharge Diet: Low Sodium Diet GAURI ANDRES MD Jan 26, 2018 10:36
[2018-01-26 12:00] VITALS: BP 177/77
--- NOTE | 2018-01-29 10:50 | Physician Query Clarification ---
PQ-Further Specificity Admission/Discharge Admission Date: Jan 24, 2018 at 10:20 Discharge Date: Jan 26, 2018 at 13:14 The medical record reflects the following clinical scenario: History/Risk Factors: Parkinson's disease, Paroxysmal atrial fibrillation, CAD, HTN Clinical Findings: fever, cough, worsening confusion Treatment: IV Rocephin Question: Can you further specify flu like illness per the clinical indicators above? Please document below. 1. acute bronchitis 2. viral illness unknown etiology 3. Other, with explanation of the clinical findings. 4. Clinically undetermined, no explanation for the clinical findings. PHYSICIAN RESPONSE Can you specify per above: 2 In responding to this query, please exercise your independent professional judgment. The purpose of this communication is to more accurately reflect the complexity of your patients condition. The fact that a question is asked does not imply that any particular answer is desired or expected. Thank you for your timely response to this clarification. Requestors name: [ ] Phone # [ ] THIS PHYSICIAN QUERY FORM IS A PERMANENT PART OF THE MEDICAL RECORD JAJA MONSALVE Jan 29, 2018 10:49 GAURI ANDRES MD Jan 29, 2018 13:17
== END 2018-01-26 13:14 | disposition home or self-care (01) | DRG 153 ==
LOC: EDUNIT# 18:27 → ER 18:30 → UNDOADMOB 22:23 → 4TH 22:23 → INTOOBSV 01-24 10:20 → OBSVTOIN 01-24 10:20
PROVIDERS: ADMIT Internal Medicine; ATTEND Internal Medicine
DX: J11.1 Influenza due to unidentified influenza virus with other respiratory manifestations (principal); J40 Bronchitis, not specified as acute or chronic; R41.82 Altered mental status, unspecified; G20 Parkinson's disease; F02.80 Dementia in other diseases classified elsewhere, unspecified severity, without behavioral disturbance, psychotic disturbance, mood disturbance, and anxiety; I48.0 Paroxysmal atrial fibrillation; I25.10 Atherosclerotic heart disease of native coronary artery without angina pectoris; I25.2 Old myocardial infarction; E78.00 Pure hypercholesterolemia, unspecified; I10 Essential (primary) hypertension; K21.9 Gastro-esophageal reflux disease without esophagitis; K59.09 Other constipation; M19.91 Primary osteoarthritis, unspecified site; M54.9 Dorsalgia, unspecified; R25.2 Cramp and spasm; F41.9 Anxiety disorder, unspecified; H91.90 Unspecified hearing loss, unspecified ear; M48.00 Spinal stenosis, site unspecified; Z95.1 Presence of aortocoronary bypass graft; Z95.0 Presence of cardiac pacemaker; Z87.891 Personal history of nicotine dependence; Z87.11 Personal history of peptic ulcer disease
CPT/HCPCS: 36415; 70450; 71045; 80048; 80053; 81000; 83605; 83880; 85025; 86141; 87040; 87804; 94761; 96360; G0378

== ENCOUNTER → 2018-02-26 | Emergency (ER) | payer MEDICARE ==
[~2018-02-26] MED LIST changes: +ALPR0.254 PO; +AMOX875T2 PO; +BENZ200C51 PO; +CARB1TAB40 PO; +HUMAN PROTHROMBIN COMPLX(PCC) 500 UNIT (KCENTRA) IV ONE; +HYDR-3812 PO; +LACT1CAP72 PO; +LIDOCAINE/EPI 1%-1:100,000 (XYLOCAINE) 20ML INJ ONE; +LIDOCAINE/EPI 2% 1:100,00 (XYLOCAINE) 20 ML VIAL ONE; +NITR0.4T42 SL; +fentaNYL INJECTION 100 MCG/2 ML AMP IVP ONE; +niCARdipine IV 50 MG in NS (IVPB) 230 ML IV SCH
--- NOTE | 2018-02-26 18:37 | ED Fall/Injury ---
General Chief Complaint: Head/Cervical Problems Stated Complaint: FALL;HEAD INJ Source: patient, spouse Exam Limitations: no limitations History of Present Illness Date Seen by Provider: Feb 26, 2018 Time Seen by Provider: 18:28 Initial Comments Patient presents to ER by private conveyance with a chief complaint of just prior to arrival he got dizzy staggered backwards and fell striking the right front of his head as well as both of his elbows. While he did strike his head he did not lose consciousness at any time. He is having no nausea or vomiting. He has a hematoma on his right elbow. He had falls in the last for 5 days resulting in a large bruising on his left ribs were looked at by 2 doctors but no x-rays were obtained. He's had quite a few falls frequently. He's had some difficulty urinating. He is also started antibiotics, Omnicef 2 days ago for pneumonia outpatient. He is a history of Parkinson's disease and staggering and falling is not unusual that he thinks that the frequency is picked up. His states that because he is having some chronic back pain and she put his second diagonal patch on about 2 hours early to overlap the father passed was about to come off. She put this on after his fall. He's had a hard time getting the bleeding to stop over his eyebrow. He has been coughing quite a bit as of late with a productive cough so 2 days ago he was started on Omnicef outpatient therapy for her pneumonia. Allergies and Home Medications Allergies Coded Allergies: gabapentin (Verified Allergy, Unknown, 02/27/17) morphine (Verified Allergy, Unknown, PT TAKES HYDROCODONE @ HOME, 02/27/17) Home Medications Alprazolam 0.25 Mg Tablet, 0.5 MG PO DAILY PRN for ANXIETY, (Reported) Amoxicillin 875 Mg Tablet, 875 MG PO BID Prescribed by: GAURI ANDRES on 01/26/18 1033 Aspirin 81 Mg Tablet.dr, 81 MG PO HS, (Reported) Benzonatate 200 Mg Capsule, 200 MG PO TID, (Reported) Calcium Polycarbophil 625 Mg Tablet, 625 MG PO DAILY, (Reported) Carbidopa/Levodopa 1 Each Tablet.er, 1.5 EACH PO QID, (Reported) Fentanyl 1 Each Patch.td72, 100 MCG TD Q72H, (Reported) Folic Acid/Multivit-Min/Lutein 1 Each Tab.chew, 1 TAB.CHEW PO BID, (Reported) Hydrocodone/Acetaminophen 1 Each Tablet, 1-2 EACH PO Q4H PRN for PAIN-MODERATE, (Reported) Isosorbide Mononitrate 30 Mg Tab.er.24h, 30 MG PO DAILY, (Reported) Lactobacillus Combo No.10 1 Each Capsule, 1 EACH PO BID Prescribed by: GAURI ANDRES on 01/26/18 1033 Magnesium Oxide 250 Mg Tablet, 250 MG PO DAILY, (Reported) Nitroglycerin 0.4 Mg Tab.subl, 0.4 MG SL PRN PRN for CHEST PAIN, (Reported) Oxybutynin Chloride 5 Mg Tablet, 5 MG PO DAILY, (Reported) Oxybutynin Chloride 5 Mg Tablet, 10 MG PO HS, (Reported) Pantoprazole Sodium 40 Mg Tablet.dr, 40 MG PO DAILY, (Reported) Paroxetine HCl 20 Mg Tablet, 40 MG PO DAILY, (Reported) Pramipexole Di-HCl 1 Mg Tablet, 1 MG PO TID, (Reported) Rivaroxaban 20 Mg Tablet, 20 MG PO 1800, (Reported) Rivastigmine 1 Each Patch.td24, 13.3 MG TD 1900, (Reported) Sennosides/Docusate Sodium 1 Each Tablet, 1 EACH PO QID, (Reported) Tamsulosin HCl 0.4 Mg Cap.er.24h, 0.4 MG PO DAILY, (Reported) Patient Home Medication List Home Medication List Reviewed: Yes Constitutional: No chills, No diaphoresis Eyes: Denies Blindness, Denies Blurred Vision, Denies Drainage Ears, Nose, Mouth, Throat: denies ear pain, denies ear discharge Respiratory: cough, No dyspnea on exertion, No hemoptysis, phlegm, No short of breath, No wheezing Cardiovascular: No chest pain, No palpitations Gastrointestinal: No abdominal pain, No constipation, No diarrhea Genitourinary: No discharge, No dysuria Musculoskeletal: No back pain, No joint pain Skin: see HPI, No pruritus, No rash Psychiatric/Neurological: Headache, Denies Numbness, Denies Paresthesia, Denies Seizure, Denies Weakness Past Eybocoi-Gkartz-Sjywbg Hx Patient Social History Alcohol Use: Denies Use Alcohol Beverage of Choice: Beer Recreational Drug Use: No Smoking Status: Former Smoker Type Used: Cigarettes Former Smoker, Quit: Feb 27, 1979 2nd Hand Smoke Exposure: No Recent Foreign Travel: No Contact w/Someone Who Travel: No Recent Hopitalizations: No (07/2016 PNEUMONIA) Immunizations Up To Date Tetanus Booster (TDap): Unknown PED Vaccines UTD: Yes Date of Pneumonia Vaccine: Jan 30, 2014 Date of Influenza Vaccine: Sep 01, 2017 Seasonal Allergies Seasonal Allergies: No Surgeries History of Surgeries: Yes ( TEETH PULLED, ULCER SX, BACK SX X2, OPEN HEART SURGERY WITH X 3 BYPASS) Surgeries: Abdominal, Appendectomy, CABG, Orthopedic, Pacemaker Respiratory History of Respiratory Disorde: Yes Respiratory Disorders: Pneumonia Currently Using CPAP: No Currently Using BIPAP: No Cardiovascular History of Cardiac Disorders: Yes (PACEMAKER. CAROTID DISEASE. 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 AV BLOCK. RBBB) Cardiac Disorders: Atrial Fibrillation, Coronary Artery Disease, Heart Attack, High Cholesterol, Hypertension Neurological History of Neurological Disord: Yes (HX acute dementia) Neurological Disorders: Dementia, Parkinson's Disease Reproductive System Hx Reproductive Disorders: No Sexually Transmitted Disease: No HIV/AIDS: No Genitourinary History of Genitourinary Disor: Yes Genitourinary Disorders: Kidney Stones, Renal Failure Gastrointestinal History of Gastrointestinal Di: Yes Gastrointestinal Disorders: Gastroesophageal Reflux, Chronic Constipation, Ulcer Musculoskeletal History of Musculoskeletal Dis: Yes (CHRONIC GENERALIZED PAIN. CHRONIC LEG CRAMPS, spinal stenosis) Musculoskeletal Disorders: Arthritis, Back Injury, Chronic Back Pain Endocrine History of Endocrine Disorders: No HEENT Loss of Vision: Bilateral Hearing Impairment: Hard of Hearing Cancer History of Cancer: No Psychosocial History of Psychiatric Problem: Yes (hx of dementia/zain) Behavioral Health Disorders: Anxiety Integumentary History of Skin or Integumenta: No Blood Transfusions History of Blood Disorders: No Adverse Reaction to a Blood Tr: No Family Medical History Significant Family History: No Pertinent Family Hx Family Medial History: Cancer 03 FATHER, Onset:60 years & older Cancer of colon 09 BROTHER, Onset:60 years & older Congestive heart failure 03 MOTHER, Onset:60 years & older 09 BROTHER, Onset:60 years & older Family history: Diabetes mellitus 09 BROTHER, Onset:50's - 60 Myocardial infarction 09 BROTHER (colon ca) No Family History of: Congenital heart disease Physical Exam Vital Signs Capillary Refill : General Appearance: WD/WN, no apparent distress HEENT: PERRL/EOMI, pharynx normal, other (hematoma over the right eyebrow with small 4 mm linear superficial laceration that has a small amount of blood draining consistently. No Batuista sign or hemotympanum) Neck: non-tender, full range of motion, supple, normal inspection Cardiovascular: normal peripheral pulses, no edema, irregularly irregular Respiratory: lungs clear, no respiratory distress, no accessory muscle use, other (left chest with ecchymosis, well-healed wound and tenderness to palpation ) Peripheral Pulses: 2+ Radial Pulses (R), 2+ Radial Pulses (L) Gastrointestinal: normal bowel sounds, non tender, soft Neurologic/Psychiatric: national sales II-XII nml as tested, no motor/sensory deficits, alert, normal mood/affect, oriented x 3 Skin: other (hematoma laceration over the right eye and ecchymosis around the right eye.) Newton Coma Score Best Eye Response: (4) Open Spontaneously Best Verbal Response: (5) Oriented Best Motor Response: (6) Obeys Commands Lurdes Total: 15 Laceration Repair : Wound Location: Scalp Other Wound Location Superior and lateral to the right eye lateral canthus. Wound Length (cm): 0.5 Wound's Depth, Shape: superficial Wound Explored: clean Irrigated w/ Saline (ccs): 50 Betadine Prep?: Yes (chlorhexidine soap water) Anesthesia: Lidocaine w/ Epi (1%) Volume Anesthetic (ccs): 1 Wound Debrided: minimal Suture: Ethlion Suture Size: 5-0 Number of Sutures: 2 Progress Patient's wound was cleaned thoroughly with chlorhexidine soap water irrigated and then infiltrated with 1-1/2 cc of 1% lidocaine with epinephrine. When his wound was ascertained to be numb we then placed a [id number] stitch superiorly and one simple interrupted stitch inferiorly and a linear laceration. His wound was hemostatic, cleaned with chlorhexidine soap water thoroughly and the patient tolerated the procedure well. Progress/Results/Core Measures Results/Orders Lab Results Laboratory Tests Test 02/26/18 18:52 Range/Units White Blood Count 8.5 4.3-11.0 10^3/uL Red Blood Count 4.10 L 4.35-5.85 10^6/uL Hemoglobin 13.2 L 13.3-17.7 G/DL Hematocrit 40 40-54 % Mean Corpuscular Volume 97 80-99 FL Mean Corpuscular Hemoglobin 32 25-34 PG Mean Corpuscular Hemoglobin Concent 33 32-36 G/DL Red Cell Distribution Width 13.9 10.0-14.5 % Platelet Count 219 130-400 10^3/uL Mean Platelet Volume 9.7 7.4-10.4 FL Neutrophils (%) (Auto) 84 H 42-75 % Lymphocytes (%) (Auto) 8 L 12-44 % Monocytes (%) (Auto) 7 0-12 % Eosinophils (%) (Auto) 1 0-10 % Basophils (%) (Auto) 0 0-10 % Neutrophils # (Auto) 7.2 1.8-7.8 X 10^3 Lymphocytes # (Auto) 0.7 L 1.0-4.0 X 10^3 Monocytes # (Auto) 0.6 0.0-1.0 X 10^3 Eosinophils # (Auto) 0.1 0.0-0.3 10^3/uL Basophils # (Auto) 0.0 0.0-0.1 10^3/uL Prothrombin Time 14.9 H 12.2-14.7 SEC INR Comment 1.2 0.8-1.4 Activated Partial Thromboplast Time 37 H 24-35 SEC Sodium Level 137 135-145 MMOL/L Potassium Level 4.7 3.6-5.0 MMOL/L Chloride Level 101 98-107 MMOL/L Carbon Dioxide Level 27 21-32 MMOL/L Anion Gap 9 5-14 MMOL/L Blood Urea Nitrogen 19 H 7-18 MG/DL Creatinine 1.05 0.60-1.30 MG/DL Estimat Glomerular Filtration Rate > 60 BUN/Creatinine Ratio 18 Glucose Level 143 H 70-105 MG/DL Calcium Level 9.5 8.5-10.1 MG/DL Total Bilirubin 0.4 0.1-1.0 MG/DL Aspartate Amino Transf (AST/SGOT) 33 5-34 U/L Alanine Aminotransferase (ALT/SGPT) 8 0-55 U/L Alkaline Phosphatase 94 40-136 U/L Total Protein 8.0 6.4-8.2 GM/DL Albumin 4.4 3.2-4.5 GM/DL My Orders Orders - MICHELL HAQ Cbc With Automated Diff (02/26/18 18:31) Comprehensive Metabolic Panel (02/26/18 18:31) Protime With Inr (02/26/18 18:31) Partial Thromboplastin Time (02/26/18 18:31) Ua Culture If Indicated (02/26/18 18:31) Ribs/Bilat With Chest (02/26/18 18:31) Ct Head/Cervical Spine Wo (02/26/18 18:31) Lidocaine/Epi 1% 1:100,000 (Xylocaine /E (02/26/18 18:45) Lidocaine/Epi 2% 1:100,000 (Xylocaine/Ep (02/26/18 18:36) Elbow, Bilateral, 3 View (02/26/18 18:31) Fentanyl Injection (Sublimaze Injection (02/26/18 19:45) Ns (Ivpb) (Sodium C... W/Nicardipine Iv (02/26/18 19:45) Human Prothrombin Complx(Pcc) (Kcentra K (02/26/18 19:45) Medications Given in ED Current Medications Medications Dose Ordered Sig/Fredi Route Start Time Stop Time Status Last Admin Dose Admin Fentanyl Citrate 50 mcg ONCE ONCE IVP 02/26/18 19:45 02/26/18 19:46 DC 02/26/18 19:54 50 MCG Lidocaine/ Epinephrine 20 ml ONCE ONCE INJ 02/26/18 18:45 02/26/18 18:46 DC 02/26/18 20:51 20 ML Prothrombin Complex Concent (Human) 3,400 unit ONCE ONCE IV 02/26/18 19:45 02/26/18 19:46 DC 02/26/18 20:51 3,400 UNIT Progress Note #1: Time: 20:00 Progress Note Blood pressure crept up to a moncho of 196 systolic so we will start a Cardene drip to keep him within parameters of target systolic blood pressure less than 1 80 mmHg. Given him some fentanyl for his pain and stitched up his head. Patient is still neurologically intact albeit with a headache now. He rates it 8 out of 10. A Center has been ordered 3400 units. [facility] EMS transport team has been called. Progress Note #2: Time: 21:00 Progress Note Blood pressure down in the 140s so Cardizem drip was turned down and then discontinued. We sent the drip with him via EMS. KCentra being given. ECG Initial ECG Impression Date: Feb 26, 2018 Initial ECG Impression Time: 19:28 Initial ECG Rate: 62 Initial ECG Rhythm: PVC Initial ECG Intervals: Normal Initial ECG Impression: Normal, Nonspecific Changes (right bundle-branch block) Initial ECG Comparisson: No Previous ECG Available Comment No ST segment elevation or depression. Diagnostic Imaging Diagonstic Imaging: CT Plain Films/CT/US/NM/MRI: c-spine, head Comments 5 mm right frontal subdural hematoma with deep intraparenchymal 0.8 x 1.1 cm hemorrhage. C-spine without acute fracture or summarization. [facility] [place] [place] NAME: MANISHA PRUITT [facility] REC#: [id number] PT STATUS: REG ER : 1935 PHYSICIAN: MICHELL HAQ MD ADMIT DATE: 02/26/18/ER Draft Date of Exam:02/26/18 CT HEAD/CERVICAL SPINE WO PROCEDURE: CT head and CT cervical spine without contrast. TECHNIQUE: Multiple contiguous axial images were obtained through the brain and cervical spine without the use of intravenous contrast. Sagittal and coronal reformations through the cervical spine were then performed. INDICATION: Head and neck pain after fall. FINDINGS: There is mild prominence of the ventricles and sulci. There is a focal intraparenchymal hemorrhage in the right frontal lobe. There is a right convexity subdural hematoma measuring 5 mm in thickness. There is no hydrocephalus. There is no mass. The calvarium is intact. There are air-fluid levels in the maxillary sinuses bilaterally. The frontal sinuses, ethmoid air cells, and sphenoid sinuses are clear. Mastoid air cells are clear. The alignment of the cervical spine is normal. The vertebral body heights are well maintained. There is some degenerative disc disease at C4-C5, C5-C6, and C6-C7. This is associated with some endplate sclerosis and marginal osteophytosis. There is slight anterolisthesis of C4 on C5. There is posterior facet arthropathy. The prevertebral soft tissues are within normal limits. Lung apices are clear. IMPRESSION: Focal intraparenchymal hemorrhage in the right frontal lobe. There is also 5 mm right convexity subdural hematoma with minimal mass effect on the right cerebrum. Moderate cervical spondylosis and multilevel degenerative disc disease without acute fracture or traumatic subluxation. Air-fluid levels in the maxillary sinuses bilaterally. Dictated on workstation # [id number] Dict: 02/26/181904 Trans: 02/26/181911 [id number] Interpreted by: BRANDT BAIN MD Electronically signed by: Reviewed: Reviewed by Tn Diagonstic Imaging: Xray Plain Films/CT/US/NM/MRI: chest Comments VIA [place], [place] NAME: MANISHA PRUITT [facility] REC#: [id number] PT STATUS: REG ER : 1935 PHYSICIAN: MICHELL HAQ MD ADMIT DATE: 02/26/18/ER Draft Date of Exam:02/26/18 RIBS/BILAT WITH CHEST INDICATION: Fall with rib pain. EXAMINATION: Seven views were obtained. FINDINGS: There is cardiomegaly. There is mild venous congestion. There has been a previous median sternotomy and coronary artery bypass graft. Pacemaker overlies the left hemithorax. There are patchy bibasilar infiltrates. There is no pleural effusion or pneumothorax. There are no definitive displaced rib fractures. IMPRESSION: 1. Patchy bibasilar infiltrates. 2. Cardiomegaly and mild venous congestion. 3. No evidence of displaced rib fractures. Dictated on workstation # [id number] Dict: 02/26/182019 Trans: 02/26/182022 [facility] [id number] Interpreted by: BRANDT BAIN MD Electronically signed by: Reviewed: Reviewed by Tn Diagonstic Imaging: Xray Plain Films/CT/US/NM/MRI: elbow (laxmi) Comments No acute osseous maladies. [facility]. [place], [place] NAME: MANISHA PRUITT [facility] REC#: [id number] PT STATUS: REG ER : 1935 PHYSICIAN: MICHELL HAQ MD ADMIT DATE: 02/26/18/ER Draft Date of Exam:02/26/18 ELBOW, BILATERAL, 3 VIEW INDICATION: Bilateral elbow pain after fall. EXAMINATION: Three views of both elbows were obtained. FINDINGS: The alignment is normal, bilaterally. There is no fracture or dislocation. Soft tissues are unremarkable. There is no joint effusion. IMPRESSION: No acute fracture or dislocation in either elbow. Dictated on workstation # [id number] Dict: 02/26/182018 Trans: 02/26/182021 [id number] Interpreted by: BRANTD BAIN MD Electronically signed by: Reviewed: Reviewed by Me Departure Impression Impression: Primary Impression: Traumatic intraparenchymal hemorrhage Qualified Codes: S06.300A - Unspecified focal traumatic brain injury without loss of consciousness, initial encounter Additional Impressions: Subdural hemorrhage Fall Qualified Codes: W19.XXXA - Unspecified fall, initial encounter Scalp hematoma Qualified Codes: S00.03XA - Contusion of scalp, initial encounter Scalp laceration Qualified Codes: S01.01XA - Laceration without foreign body of scalp, initial encounter Pneumonia Qualified Codes: J18.9 - Pneumonia, unspecified organism Disposition: 02 XFER SHT-TRM HOSP Condition: Critical Transfer Time Spoke to Accepting Phy: 19:35 Transfer Progress Notes Req XFER for Neurosurgery management. 1920: [place] NS Casco: ER to ER transfer and will take it. He would like us to start conservative or FFP what we have if possible. Spoke to ER doctor and gave same report. Transfer Time: 20:38 Transfer Facility: [facility] Method of Transfer: EMS Departure-Patient Inst. Referrals: GERRY JANE MD (PCP/Family) Primary Care Physician Copy Copies To 1: GERRY JANE MD, TITUS J Feb 26, 2018 18:37
--- NOTE | 2018-02-26 19:13 | Diagnostic Imaging Report ---
PROCEDURE: CT head and CT cervical spine without contrast. TECHNIQUE: Multiple contiguous axial images were obtained through the brain and cervical spine without the use of intravenous contrast. Sagittal and coronal reformations through the cervical spine were then performed. INDICATION: Head and neck pain after fall. FINDINGS: There is mild prominence of the ventricles and sulci. There is a focal intraparenchymal hemorrhage in the right frontal lobe. There is a right convexity subdural hematoma measuring 5 mm in thickness. There is no hydrocephalus. There is no mass. The calvarium is intact. There are air-fluid levels in the maxillary sinuses bilaterally. The frontal sinuses, ethmoid air cells, and sphenoid sinuses are clear. Mastoid air cells are clear. The alignment of the cervical spine is normal. The vertebral body heights are well maintained. There is some degenerative disc disease at C4-C5, C5-C6, and C6-C7. This is associated with some endplate sclerosis and marginal osteophytosis. There is slight anterolisthesis of C4 on C5. There is posterior facet arthropathy. The prevertebral soft tissues are within normal limits. Lung apices are clear. IMPRESSION: Focal intraparenchymal hemorrhage in the right frontal lobe. There is also 5 mm right convexity subdural hematoma with minimal mass effect on the right cerebrum. Moderate cervical spondylosis and multilevel degenerative disc disease without acute fracture or traumatic subluxation. Air-fluid levels in the maxillary sinuses bilaterally. Dictated by: Dictated on workstation # [id number]
[2018-02-26 19:14] LABS: BASOPHILS % (AUTO) 0 % (0-10); EOSINOPHILS # (AUTO) 0.1 10^3/uL (0.0-0.3); EOSINOPHILS % (AUTO) 1 % (0-10); HEMATOCRIT 40 % (40-54); HEMOGLOBIN 13.2 G/DL (13.3-17.7); LYMPHOCYTES # (AUTO) 0.7 X 10^3 (1.0-4.0); LYMPHOCYTES % (AUTO) 8 % (12-44); MEAN CORPUSCULAR HEMOGLOBIN 32 PG (25-34); MEAN CORPUSCULAR HGB CONC 33 G/DL (32-36); MEAN CORPUSCULAR VOLUME 97 FL (80-99); MEAN PLATELET VOLUME 9.7 FL (7.4-10.4); MONOCYTES # (AUTO) 0.6 X 10^3 (0.0-1.0); MONOCYTES % (AUTO) 7 % (0-12); NEUTROPHILS # (AUTO) 7.2 X 10^3 (1.8-7.8); NEUTROPHILS % (AUTO) 84 % (42-75); PLATELET COUNT 219 10^3/uL (130-400); RED CELL DISTRIBUTION WIDTH 13.9 % (10.0-14.5); WHITE BLOOD COUNT 8.5 10^3/uL (4.3-11.0)
[2018-02-26 19:20] LABS: INR 1.2 (0.8-1.4); PROTHROMBIN TIME PATIENT 14.9 SEC (12.2-14.7)
[2018-02-26 19:26] LABS: ALANINE AMINOTRANSFERASE 8 U/L (0-55); ALBUMIN 4.4 GM/DL (3.2-4.5); ALKALINE PHOSPHATASE 94 U/L (40-136); BILIRUBIN,TOTAL 0.4 MG/DL (0.1-1.0); BUN/CREATININE RATIO 18; CALCIUM 9.5 MG/DL (8.5-10.1); CARBON DIOXIDE 27 MMOL/L (21-32); CHLORIDE 101 MMOL/L (98-107); CREATININE SERUM 1.05 MG/DL (0.60-1.30); GFR ESTIMATED > 60; GLUCOSE 143 MG/DL (70-105); POTASSIUM 4.7 MMOL/L (3.6-5.0); SODIUM 137 MMOL/L (135-145)
--- NOTE | 2018-02-26 20:22 | Diagnostic Imaging Report ---
INDICATION: Bilateral elbow pain after fall. EXAMINATION: Three views of both elbows were obtained. FINDINGS: The alignment is normal, bilaterally. There is no fracture or dislocation. Soft tissues are unremarkable. There is no joint effusion. IMPRESSION: No acute fracture or dislocation in either elbow. Dictated by: Dictated on workstation # [id number]
--- NOTE | 2018-02-26 20:24 | Diagnostic Imaging Report ---
INDICATION: Fall with rib pain. EXAMINATION: Seven views were obtained. FINDINGS: There is cardiomegaly. There is mild venous congestion. There has been a previous median sternotomy and coronary artery bypass graft. Pacemaker overlies the left hemithorax. There are patchy bibasilar infiltrates. There is no pleural effusion or pneumothorax. There are no definitive displaced rib fractures. IMPRESSION: 1. Patchy bibasilar infiltrates. 2. Cardiomegaly and mild venous congestion. 3. No evidence of displaced rib fractures. Dictated by: Dictated on workstation # [id number]
== END | disposition short-term general hospital (02) ==
LOC: EDUNIT# 18:14 → ER 18:15
DX: S06.300A Unspecified focal traumatic brain injury without loss of consciousness, initial encounter (principal); S06.5X0A Traumatic subdural hemorrhage without loss of consciousness, initial encounter; S01.01XA Laceration without foreign body of scalp, initial encounter; J18.9 Pneumonia, unspecified organism; R40.2142 Coma scale, eyes open, spontaneous, at arrival to emergency department; R40.2252 Coma scale, best verbal response, oriented, at arrival to emergency department; R40.2362 Coma scale, best motor response, obeys commands, at arrival to emergency department; I48.91 Unspecified atrial fibrillation; I10 Essential (primary) hypertension; I25.2 Old myocardial infarction; E78.00 Pure hypercholesterolemia, unspecified; I25.10 Atherosclerotic heart disease of native coronary artery without angina pectoris; G20 Parkinson's disease; F03.90 Unspecified dementia, unspecified severity, without behavioral disturbance, psychotic disturbance, mood disturbance, and anxiety; K21.9 Gastro-esophageal reflux disease without esophagitis; F41.9 Anxiety disorder, unspecified; Z88.5 Allergy status to narcotic agent; Z88.8 Allergy status to other drugs, medicaments and biological substances; Z79.52 Long term (current) use of systemic steroids; Z80.0 Family history of malignant neoplasm of digestive organs; Z82.49 Family history of ischemic heart disease and other diseases of the circulatory system; Z79.01 Long term (current) use of anticoagulants; Z87.442 Personal history of urinary calculi; Z87.891 Personal history of nicotine dependence; Z87.19 Personal history of other diseases of the digestive system; Z95.1 Presence of aortocoronary bypass graft; Z90.49 Acquired absence of other specified parts of digestive tract; Z95.0 Presence of cardiac pacemaker; W01.10XA Fall on same level from slipping, tripping and stumbling with subsequent striking against unspecified object, initial encounter
CPT/HCPCS: 36415; 70450; 71111; 72125; 80053; 85025; 85610; 85730; 96374; 96375

== ENCOUNTER 2018-03-06 17:12 | Inpatient (IN) | payer MEDICARE ==
[2018-03-06] VITALS (17 sets, daily range): BP systolic 146–209; BP diastolic 64–98
[~2018-03-06] VITALS: Ht 170.2 cm; Wt 67.2 kg
[~2018-03-06 17:12] MED LIST changes: -HUMAN PROTHROMBIN COMPLX(PCC) 500 UNIT (KCENTRA) IV ONE; -IPRA3AMP INH; +IPRA3AMP31 INH; -LIDOCAINE/EPI 1%-1:100,000 (XYLOCAINE) 20ML INJ ONE; -LIDOCAINE/EPI 2% 1:100,00 (XYLOCAINE) 20 ML VIAL ONE; -SENN-1 PO; +SENN-145 PO; -fentaNYL INJECTION 100 MCG/2 ML AMP IVP ONE; -niCARdipine IV 50 MG in NS (IVPB) 230 ML IV SCH
[2018-03-06] MEDS ORDERED: WATER (STERILE) FOR INJECTION 20 ML ONE (17:35)
[2018-03-06] MEDS ORDERED: ZIPRASIDONE 20 MG INJ (GEODON) VIAL IM ONE (17:35)
--- NOTE | 2018-03-06 17:56 | ED General ---
General Chief Complaint: Altered Mental Status Stated Complaint: AMS Nursing Triage Note: PT BROUGHT FROM OR TO ED AFTER ONLY BEING AT OR FOR 1HOUR FROM [facility]. PT IS COMBATIVE AND CONFUSED. PT IS SOA. PT STATES ONLY HAS BACK PAIN AT THIS X. PT HAS BLACK EYES FROM FALL LAST WEEK. FAMILY AT BEDSIDE Nursing Sepsis Screen: No Definite Risk Source of Information: Patient, EMS, Family, Old Records Exam Limitations: Physical Impairments (PAO CLAUDIO MD) History of Present Illness Date Seen by Provider: Mar 06, 2018 Time Seen by Provider: 17:10 Initial Comments Here with reports of acute psychosis and agitated behavior at the [facility]. Apparently was seen here last week and found to have intracranial hemorrhage after fall and was transferred to [facility]. There he was found to have a hemorrhage which was monitored without surgical intervention as well as pneumonia. Ultimately he was discharged today to a skilled unit to complete further care and physical and occupational therapy. On the way by EMS from [facility] to be a [facility], patient became very agitated and stated he was given a home. EMS reports that the other EMS unit had to call the asset protection detective's department who then talked him into going to the [facility]dc. After arrival at the [facility], patient was very agitated and aggressive and EMS was called for transfer to the hospital here. Patient was refusing and very agitated but ultimately did accept transfer to the hospital. Here he is very aggressive and states that he wants to go home and that he is going home. He has been incontinent of urine. He is aggressive to staff. I did speak with the outside of the room and she is concerned for her and his safety at home and states that she cannot take him home. He is unable to go back to the [facility] due to behaviors. He has been switched to Levaquin by mouth for his pneumonia that was improving after he was on meropenem at the previous hospital. He has previously been on Xarelto and aspirin but this has been stopped due to the intracranial hemorrhage per notes from outside facility. He was started on Zyprexa apparently at the previous hospital every afternoon. He has not had that today. Does have minor cough but is otherwise not answering medical related questioning. Does appear to family as well as some staff at have known him for a while. Timing/Duration: 1-3 Hours Severity: Moderate, Severe Associated Systoms: Cough (PAO CLAUDIO MD) Allergies and Home Medications Allergies Coded Allergies: gabapentin (Verified Allergy, Unknown, 02/27/17) morphine (Verified Allergy, Unknown, PT TAKES HYDROCODONE @ HOME, 02/27/17) Home Medications Alprazolam 0.25 Mg Tablet, 0.5 MG PO DAILY PRN for ANXIETY, (Reported) Amoxicillin 875 Mg Tablet, 875 MG PO BID Prescribed by: GAURI MITCHELL on 01/26/18 1033 Aspirin 81 Mg Tablet.dr, 81 MG PO HS, (Reported) Benzonatate 200 Mg Capsule, 200 MG PO TID, (Reported) Calcium Polycarbophil 625 Mg Tablet, 625 MG PO DAILY, (Reported) Carbidopa/Levodopa 1 Each Tablet.er, 1.5 EACH PO QID, (Reported) Fentanyl 1 Each Patch.td72, 100 MCG TD Q72H, (Reported) Folic Acid/Multivit-Min/Lutein 1 Each Tab.chew, 1 TAB.CHEW PO BID, (Reported) Hydrocodone/Acetaminophen 1 Each Tablet, 1-2 EACH PO Q4H PRN for PAIN-MODERATE, (Reported) Isosorbide Mononitrate 30 Mg Tab.er.24h, 30 MG PO DAILY, (Reported) Lactobacillus Combo No.10 1 Each Capsule, 1 EACH PO BID Prescribed by: GAURI MITCHELL on 01/26/18 1033 Magnesium Oxide 250 Mg Tablet, 250 MG PO DAILY, (Reported) Nitroglycerin 0.4 Mg Tab.subl, 0.4 MG SL PRN PRN for CHEST PAIN, (Reported) Oxybutynin Chloride 5 Mg Tablet, 5 MG PO DAILY, (Reported) Oxybutynin Chloride 5 Mg Tablet, 10 MG PO HS, (Reported) Pantoprazole Sodium 40 Mg Tablet.dr, 40 MG PO DAILY, (Reported) Paroxetine HCl 20 Mg Tablet, 40 MG PO DAILY, (Reported) Pramipexole Di-HCl 1 Mg Tablet, 1 MG PO TID, (Reported) Rivaroxaban 20 Mg Tablet, 20 MG PO 1800, (Reported) Rivastigmine 1 Each Patch.td24, 13.3 MG TD 1900, (Reported) Sennosides/Docusate Sodium 1 Each Tablet, 1 EACH PO QID, (Reported) Tamsulosin HCl 0.4 Mg Cap.er.24h, 0.4 MG PO DAILY, (Reported) Patient Home Medication List Home Medication List Reviewed: Yes (list of meds from outside facility reviewed.) (PAO CLAUDIO MD) Review of Systems Constitutional: see HPI, No fever Respiratory: cough Musculoskeletal: back pain Psychiatric/Neurological: Anxiety, Emotional Problems Unable to complete review of systems due to behavioral problems, agitation and likely dementia. (PAO CLAUDIO MD) Past Fsrduub-Jcenxp-Gugboc Hx Past Med/Social Hx: Reviewed Nursing Past Med/Soc Hx (PAO CLAUDIO MD) Patient Social History Alcohol Use: Rarely Uses Number of Drinks Today: AA Alcohol Beverage of Choice: Beer Recreational Drug Use: No Smoking Status: Former Smoker Type Used: Cigarettes Former Smoker, Quit: Feb 27, 1979 2nd Hand Smoke Exposure: No Recent Foreign Travel: No Contact w/Someone Who Travel: No Recent Infectious Disease Expo: No Recent Hopitalizations: Yes (HEAD BLEED/PNEM) Physical Abuse: No Sexual Abuse: No (PAO CLAUDIO MD) Immunizations Up To Date Tetanus Booster (TDap): Unknown PED Vaccines UTD: Yes Date of Pneumonia Vaccine: Jan 30, 2014 Date of Influenza Vaccine: Sep 01, 2017 (PAO CLAUDIO MD) Seasonal Allergies Seasonal Allergies: No (PAO CLAUDIO MD) Past Medical History Surgeries: Yes ( TEETH PULLED, ULCER SX, BACK SX X2, OPEN HEART SURGERY WITH X 3 BYPASS) Abdominal, Appendectomy, CABG, Orthopedic, Pacemaker Respiratory: Yes Pneumonia Currently Using CPAP: No Currently Using BIPAP: No Cardiac: Yes (PACEMAKER. CAROTID DISEASE. 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 AV BLOCK. RBBB) Atrial Fibrillation, Coronary Artery Disease, Heart Attack, High Cholesterol, Hypertension Neurological: Yes (HX acute dementia, intracranial hemorrhage) Dementia, Parkinson's Disease Reproductive Disorders: No Sexually Transmitted Disease: No HIV/AIDS: No Genitourinary: Yes Kidney Stones, Renal Failure Gastrointestinal: Yes Gastroesophageal Reflux, Chronic Constipation, Ulcer Musculoskeletal: Yes (CHRONIC GENERALIZED PAIN. CHRONIC LEG CRAMPS, spinal stenosis) Arthritis, Back Injury, Chronic Back Pain Endocrine: No Loss of Vision: Bilateral Hearing Impairment: Hard of Hearing Cancer: No Psychosocial: Yes (hx of dementia/zain) Anxiety Nursing Suicide Risk Score: 0 Integumentary: No Blood Disorders: No Adverse Reaction/Blood Tranf: No (PAO CLAUDIO MD) Family Medical History Reviewed Nursing Family Hx Cancer 03 FATHER, Onset:60 years & older Cancer of colon 09 BROTHER, Onset:60 years & older Congestive heart failure 03 MOTHER, Onset:60 years & older 09 BROTHER, Onset:60 years & older Family history: Diabetes mellitus 09 BROTHER, Onset:50's - 60 Myocardial infarction 09 BROTHER (colon ca) (PAO CLAUDIO MD) Cancer 03 FATHER, Onset:60 years & older Cancer of colon 09 BROTHER, Onset:60 years & older Congestive heart failure 03 MOTHER, Onset:60 years & older 09 BROTHER, Onset:60 years & older Family history: Diabetes mellitus 09 BROTHER, Onset:50's - 60 Myocardial infarction 09 BROTHER (colon ca) No Family History of: Congenital heart disease (DAVID CADENA APRN) Physical Exam Vital Signs Vital Signs - First Documented 03/06/18 17:12 Temp 97.5 Pulse 85 Resp 18 B/P (MAP) 186/85 (118) Pulse Ox 93 O2 Delivery Room Air (DAVID CADENA APRN) Vital Signs Capillary Refill : Less Than 3 Seconds (PAO CLAUDIO MD) General Appearance: WD/WN, Mild Distress, Other (anxious and agitated) HEENT: PERRL/EOMI, TMs Normal, Pharynx Normal Neck: Non Tender, Supple Respiratory: No Respiratory Distress, Crackles (bilateral bases) Cardiovascular: Regular Rate, Rhythm, No Murmur Gastrointestinal: Non Tender, Soft Back: Normal Inspection, No CVA Tenderness, No Vertebral Tenderness Extremity: Normal Range of Motion, Non Tender Neurologic/Psychiatric: Alert, Other (agitated) Skin: Warm/Dry, Ecchymosis (multiple areas on the face and bilateral arms) ( PAO CLAUDIO MD) Procedures/Interventions Suture Size: 5-0 (PAO CLAUDIO MD) Progress/Results/Core Measures Suspected Sepsis Recent Fever Within 48 Hours: No Infection Criteria Present: None New/Unexplained Altered Menta: No Sepsis Screen: No Definite Risk Sepsis Diagnosis: SIRS Temperature:97.5 Pulse: 85 Respiratory Rate: 18 Blood Pressure 186 /85 Mean: 118 (PAO CLAUDIO MD) Results/Orders Lab Results Laboratory Tests Test 03/06/18 18:05 03/06/18 18:15 Range/Units White Blood Count 8.4 4.3-11.0 10^3/uL Red Blood Count 3.05 L 4.35-5.85 10^6/uL Hemoglobin 9.8 L 13.3-17.7 G/DL Hematocrit 29 L 40-54 % Mean Corpuscular Volume 96 80-99 FL Mean Corpuscular Hemoglobin 32 25-34 PG Mean Corpuscular Hemoglobin Concent 34 32-36 G/DL Red Cell Distribution Width 13.9 10.0-14.5 % Platelet Count 237 130-400 10^3/uL Mean Platelet Volume 9.4 7.4-10.4 FL Neutrophils (%) (Auto) 73 42-75 % Lymphocytes (%) (Auto) 11 L 12-44 % Monocytes (%) (Auto) 9 0-12 % Eosinophils (%) (Auto) 7 0-10 % Basophils (%) (Auto) 0 0-10 % Neutrophils # (Auto) 6.1 1.8-7.8 X 10^3 Lymphocytes # (Auto) 0.9 L 1.0-4.0 X 10^3 Monocytes # (Auto) 0.8 0.0-1.0 X 10^3 Eosinophils # (Auto) 0.6 H 0.0-0.3 10^3/uL Basophils # (Auto) 0.0 0.0-0.1 10^3/uL Prothrombin Time 14.4 12.2-14.7 SEC INR Comment 1.1 0.8-1.4 Activated Partial Thromboplast Time 32 24-35 SEC Sodium Level 136 135-145 MMOL/L Potassium Level 3.9 3.6-5.0 MMOL/L Chloride Level 103 98-107 MMOL/L Carbon Dioxide Level 22 21-32 MMOL/L Anion Gap 11 5-14 MMOL/L Blood Urea Nitrogen 22 H 7-18 MG/DL Creatinine 0.91 0.60-1.30 MG/DL Estimat Glomerular Filtration Rate > 60 BUN/Creatinine Ratio 24 Glucose Level 136 H 70-105 MG/DL Calcium Level 8.8 8.5-10.1 MG/DL Total Bilirubin 0.7 0.1-1.0 MG/DL Aspartate Amino Transf (AST/SGOT) 42 H 5-34 U/L Alanine Aminotransferase (ALT/SGPT) 20 0-55 U/L Alkaline Phosphatase 74 40-136 U/L B-Type Natriuretic Peptide 528.6 H <100.0 PG/ML Total Protein 6.2 L 6.4-8.2 GM/DL Albumin 3.5 3.2-4.5 GM/DL Urine Color YELLOW Urine Clarity CLEAR Urine pH 6 5-9 Urine Specific [place] 1.010 L 1.016-1.022 Urine Protein 2+ H NEGATIVE Urine Glucose (UA) NEGATIVE NEGATIVE Urine Ketones NEGATIVE NEGATIVE Urine Nitrite NEGATIVE NEGATIVE Urine Bilirubin NEGATIVE NEGATIVE Urine Urobilinogen NORMAL NORMAL MG/DL Urine Leukocyte Esterase 1+ H NEGATIVE Urine RBC (Auto) 2+ H NEGATIVE Urine RBC 0-2 /HPF Urine WBC 0-2 /HPF Urine Crystals PRESENT H /LPF Urine Amorphous Sediment FEW VIDYA URATES H /LPF Urine Bacteria NONE /HPF Urine Casts NONE /LPF Urine Mucus NEGATIVE /LPF Urine Culture Indicated NO (DAVID CADENA APRN) My Orders Orders - DAVID CADENA APRN Cbc With Automated Diff (03/06/18 17:16) Comprehensive Metabolic Panel (03/06/18 17:16) Protime With Inr (03/06/18 17:16) Partial Thromboplastin Time (03/06/18 17:16) Ua Culture If Indicated (03/06/18 17:16) Chest 1 View, Ap/Pa Only (03/06/18 17:16) Ct Head Wo (03/06/18 17:16) Saline Lock/Iv-Start (03/06/18 17:16) Lorazepam Injection (Ativan Injection) (03/06/18 18:45) Lorazepam Injection (Ativan Injection) (03/06/18 18:40) BNP (03/06/18 18:49) Furosemide Injection (Lasix Injection) (03/06/18 19:00) (DAVID CADENA APRN) Medications Given in ED Current Medications Medications Dose Ordered Sig/Fredi Route Start Time Stop Time Status Last Admin Dose Admin Furosemide 40 mg ONCE ONCE IVP 03/06/18 19:00 03/06/18 19:01 DC 03/06/18 19:25 40 MG Lorazepam 0.5 mg ONCE ONCE IVP 03/06/18 18:45 03/06/18 18:46 DC 03/06/18 18:48 0.5 MG Sterile Water 20 ml @ ud STK-MED ONCE .ROUTE 03/06/18 17:35 03/06/18 17:39 DC 03/06/18 17:45 1.2 MLS/HR Ziprasidone 20 mg STK-MED ONCE IM 03/06/18 17:35 03/06/18 17:39 DC 03/06/18 17:45 20 MG (DAVID CADENA APRN) Vital Signs/I&O Vital Sign - Last 12Hours 03/06/18 17:12 Temp 97.5 Pulse 85 Resp 18 B/P (MAP) 186/85 (118) Pulse Ox 93 O2 Delivery Room Air (DAVID CADENA APRN) Vital Signs/I&O Capillary Refill : Less Than 3 Seconds (PAO CLAUDIO MD) Blood Pressure Mean: 118 Progress Note : Progress Note Seen and evaluated on arrival by EMS. Patient very agitated and intermittently excepting evaluation. We were able to get vital signs and I was able to do basic physical exam but patient became more agitated. Geodon 20 mg IM. I did discuss the case at length with the family including the and son and we all agree about the fact that he is not safe for home. 1739: I discussed the case with Dr. Mitchell, hospitalist on-call for Dr. Meek. She accepts patient for admission but requested ICU. We will continue Geodon IM as needed for agitation. I wrote for Keppra twice a day as well and we will continue fentanyl patch 25 g transdermal every 72 hours to prevent withdrawal. Patient has been on Levaquin now and we will change that back to meropenem 1 g IV every 8 hours with pharmacy to adjust after the first dose as this therapy was effective at previous hospitalization and has less risk of agitation related to dementia. 1800: Case transferred to Dr. Mckeon pending all labs and radiology evaluation. 1805: I discussed the case with Dr. Shelley, on-call for trauma. Patient has R to been cleared by neurosurgery so we do not believe that there is a need for trauma consult at this time and there is no new trauma concerns. Patient did not receive blood cultures her lactic acid as he has no pneumonia that is currently being treated from outside facility and we are discontinuing that treatment and there is no indication of sepsis or septic shock. This appears to be delirium that may be caused by the dementia and Levaquin dosing potentially and agitation related to that. Admit, inpatient status. Family agrees with plan. Updates to Dr. Mitchell by David Cadena APRN who has evaluated the patient with me and is familiar with the case. (PAO CLAUDIO MD) Diagnostic Imaging Diagonstic Imaging: Xray Plain Films/CT/US/NM/MRI: chest Comments NAME: MANISHA PRUITT [facility] REC#: [id number] PT STATUS: REG ER : 1935 PHYSICIAN: DAVID CADENA APRN ADMIT DATE: 03/06/18/ER Draft Date of Exam:03/06/18 CHEST 1 VIEW, AP/PA ONLY INDICATION: Known intracranial hemorrhage. Cough. COMPARISON: 02/26/2018. FINDINGS: There has been increasing cardiac size. There also has been development of bilateral diffuse interstitial infiltrates suggesting pulmonary edema. There are no consolidated infiltrates to suggest pneumonia. No pneumothorax. No pleural effusion. Pacemaker on the left appears unchanged. IMPRESSION: 1. Increasing cardiomegaly and development of bilateral diffuse interstitial infiltrates would suggest developing congestive failure or fluid overload. Dictated on workstation # [id number] Dict: 03/06/18 1838 Trans: 03/06/18 1844 [id number] Interpreted by: BIBIANA CHUN MD Electronically signed by: (DAVID CADENA APRN) Departure Communication (Admissions) Time/Spoke to Admitting Phy: 17:39 (PAO CLAUDIO MD) 1916-I discussed the case with Dr. Benavides. We will admit as long as neurosurgery is okay with the CT changes. Dr. Aguiar cared for the patient while in the hospital at [place] and happens to be on-call tonight. I did speak with him. He states that this increased density is fairly common appearance as the subdural is changing from acute to subacute to chronic status. The CT scan stating less overall volume from 02/26 is also reassuring. The altered mental status is likely from his Parkinson's dementia, being out of his regular environment and fluoroquinolones. He would plan to see the patient back in his office in 2 weeks for follow up with a head CT. If this enlarges he would consider anuel hole but at this time is not necessary. 1927-patient was given 40 mg of Lasix for the worsening chest x-ray appearance of increased cardia megaly and interstitial infiltrates, absence of pneumonia and his wet sounding cough. He required an additional 2 mg of lorazepam at 1 mg doses for additional sedation (DAVID CADENA APRN) Impression Primary Impression: Acute psychosis Additional Impressions: Pneumonia of both lower lobes Qualified Codes: J18.1 - Lobar pneumonia, unspecified organism Agitation Dementia Qualified Codes: F03.91 - Unspecified dementia with behavioral disturbance Intracranial hemorrhage Disposition: ADMITTED INPATIENT Condition: Stable Admissions Decision to Admit Reason: Admit from ER (General) Decision to Admit/Date: Mar 06, 2018 Time/Decision to Admit Time: 19:17 (DAVID CADENA APRN) Departure-Patient Inst. Referrals: GERRY MEEK MD (PCP/Family) Primary Care Physician PAO CLAUDIO MD Mar 06, 2018 17:56 DAVID CADENA APRN Mar 06, 2018 18:49
[2018-03-06 18:12] LABS: BASOPHILS % (AUTO) 0 % (0-10); EOSINOPHILS # (AUTO) 0.6 10^3/uL (0.0-0.3); EOSINOPHILS % (AUTO) 7 % (0-10); HEMATOCRIT 29 % (40-54); HEMOGLOBIN 9.8 G/DL (13.3-17.7); LYMPHOCYTES # (AUTO) 0.9 X 10^3 (1.0-4.0); LYMPHOCYTES % (AUTO) 11 % (12-44); MEAN CORPUSCULAR HEMOGLOBIN 32 PG (25-34); MEAN CORPUSCULAR HGB CONC 34 G/DL (32-36); MEAN CORPUSCULAR VOLUME 96 FL (80-99); MEAN PLATELET VOLUME 9.4 FL (7.4-10.4); MONOCYTES # (AUTO) 0.8 X 10^3 (0.0-1.0); MONOCYTES % (AUTO) 9 % (0-12); NEUTROPHILS # (AUTO) 6.1 X 10^3 (1.8-7.8); NEUTROPHILS % (AUTO) 73 % (42-75); PLATELET COUNT 237 10^3/uL (130-400); RED BLOOD COUNT 3.05 10^6/uL (4.35-5.85); RED CELL DISTRIBUTION WIDTH 13.9 % (10.0-14.5); WHITE BLOOD COUNT 8.4 10^3/uL (4.3-11.0)
[2018-03-06 18:20] LABS: BILIRUBIN,URINE NEGATIVE (NEGATIVE); CLARITY,URINE CLEAR; COLOR,URINE YELLOW; GLUCOSE, URINE (UA) NEGATIVE (NEGATIVE); KETONES,URINE NEGATIVE (NEGATIVE); LEUKOCYTE ESTERASE ,URINE 1+ (NEGATIVE); NITRITE,URINE NEGATIVE (NEGATIVE); PH,URINE 6 (5-9); PROTEIN,URINE 2+ (NEGATIVE); UROBILINOGEN,URINE NORMAL (NORMAL)
[2018-03-06 18:22] LABS: INR 1.1 (0.8-1.4); PROTHROMBIN TIME PATIENT 14.4 SEC (12.2-14.7)
[2018-03-06 18:28] LABS: AMORPHOUS SEDIMENT,UR FEW AMOR URATES /LPF; RBC,URINE 0-2 /HPF; WBC,URINE 0-2 /HPF
[2018-03-06 18:32] LABS: ALANINE AMINOTRANSFERASE 20 U/L (0-55); ALBUMIN 3.5 GM/DL (3.2-4.5); ALKALINE PHOSPHATASE 74 U/L (40-136); BILIRUBIN,TOTAL 0.7 MG/DL (0.1-1.0); BUN/CREATININE RATIO 24; CALCIUM 8.8 MG/DL (8.5-10.1); CARBON DIOXIDE 22 MMOL/L (21-32); CHLORIDE 103 MMOL/L (98-107); CREATININE SERUM 0.91 MG/DL (0.60-1.30); GFR ESTIMATED > 60; GLUCOSE 136 MG/DL (70-105); POTASSIUM 3.9 MMOL/L (3.6-5.0); SODIUM 136 MMOL/L (135-145); TOTAL PROTEIN 6.2 GM/DL (6.4-8.2)
[2018-03-06] MEDS ORDERED: LORazepam INJ 2 MG/ML (ATIVAN) VIAL ONE (18:40)
[2018-03-06] MEDS ORDERED: LORazepam INJ 2 MG/ML (ATIVAN) VIAL IVP ONE ×2 (18:45→19:45)
--- NOTE | 2018-03-06 18:45 | Diagnostic Imaging Report ---
INDICATION: Known intracranial hemorrhage. Cough. COMPARISON: 02/26/2018. FINDINGS: There has been increasing cardiac size. There also has been development of bilateral diffuse interstitial infiltrates suggesting pulmonary edema. There are no consolidated infiltrates to suggest pneumonia. No pneumothorax. No pleural effusion. Pacemaker on the left appears unchanged. IMPRESSION: 1. Increasing cardiomegaly and development of bilateral diffuse interstitial infiltrates would suggest developing congestive failure or fluid overload. Dictated by: Dictated on workstation # [id number]
--- NOTE | 2018-03-06 18:50 | Diagnostic Imaging Report ---
PROCEDURE: CT head without contrast. TECHNIQUE: Multiple contiguous axial images were obtained through the brain without the use of intravenous contrast. INDICATION: Previous fall with known intracranial hemorrhage. Comparison with 02/26/2018. FINDINGS: The right frontal intraparenchymal hematoma appears unchanged. Right frontal parietal subdural hematoma has decreased slightly in size. There does appear to be a small amount of new hemorrhage, however, along the right frontal region. There is a small amount of hemorrhage noted along the tentorium on the right today which is slightly more prominent. There is no mass effect demonstrated. Ventricles appear normal. Basal cisterns are clear. No evidence of subarachnoid or interventricular hemorrhage. IMPRESSION: 1. Mixed density subdural hematoma does suggest there has been a small amount of new hemorrhage though the overall volume of the subdural fluid has decreased. 2. The dense parenchymal hemorrhage right frontal lobe appears unchanged. This does raise concern for possible underlying malignancy versus recurrent small bleed into the same region. 3. There is no mass effect. Dictated by: Dictated on workstation # [id number]
[2018-03-06] MEDS ORDERED: FUROSEMIDE 40 MG/4 ML INJ (LASIX) IVP ONE (19:00)
[2018-03-06] MEDS ORDERED: ZIPRASIDONE 20 MG INJ (GEODON) VIAL IM PRN (20:15)
[2018-03-06] MEDS ORDERED: CATHETER FLUSH 10 ML SYR IV PRN ×2 (20:15→20:30)
[2018-03-06] MEDS ORDERED: HALOPERIDOL 5 MG/ML (HALDOL) AMP ONE (20:25)
[2018-03-06] MEDS ORDERED: NS (IVPB) 50 ML ONE (20:28)
[2018-03-06] MEDS ORDERED: LORazepam INJ 2 MG/ML (ATIVAN) VIAL IV PRN (20:30)
[2018-03-06] MEDS ORDERED: fentaNYL PATCH 25 MCG (DURAGESIC) TOP SCH (20:30)
[2018-03-06] MEDS: MEROPENEM 500 MG in NS (IVPB) 100 ML IV SCH (20:44)
[2018-03-06] MEDS: DEXMEDETOMIDINE IV SCH ×2 (20:45)
[2018-03-06] MEDS: NS IV SCH ×2 (20:45)
[2018-03-06] MEDS: NS IV 1000 ML 1,000 ML IV SCH (20:51)
[2018-03-06] MEDS ORDERED: LEVETIRACETAM 500 MG (KEPPRA) TAB PO SCH (21:00)
[2018-03-06] MEDS ORDERED: RT-ALBUTEROL/IPRATROPIUM 3 ML (DUONEB) VIAL INH PRN (21:30)
[2018-03-06] MEDS ORDERED: fentaNYL INJECTION 100 MCG/2 ML AMP IV PRN (21:45)
[2018-03-06] MEDS ORDERED: DEXMEDETOMIDINE INJECTION 200 MCG in NS (IVPB) 50 ML IV ONE (22:00)
[2018-03-06] MEDS: CATHETER FLUSH 10 ML SYR IV SCH (22:04)
[2018-03-06] MEDS ORDERED: LEVETIRACETAM 500 MG/5 ML (KEPPRA) VIAL IV ONE (22:06)
[2018-03-06] MEDS ORDERED: NS (IVPB) 100 ML ONE (22:06)
[2018-03-06] MEDS: LEVETIRACETAM INJECTION 500 MG in NS (IVPB) 100 ML IV SCH (22:12)
[2018-03-07] VITALS (29 sets, daily range): BP systolic 90–179; BP diastolic 48–91
[2018-03-07 03:33] LABS: ABG BASE EXCESS 5.4 MMOL/L (-2.5-2.5); ABG OXYGEN SATURATION 98 % (94-100); ABG PCO2 31 MMHG (35-45); ABG PH 7.57 (7.37-7.43); ABG PO2 87 MMHG (79-93); ABG TCO2 28.8 MMOL/L (21.0-31.0)
[2018-03-07 03:35] LABS: ALLENS TEST YES-POS; INSPIRED O2 30%; VENTILATOR NO
[2018-03-07 03:44] LABS: BASOPHILS % (AUTO) 0 % (0-10); EOSINOPHILS # (AUTO) 0.4 10^3/uL (0.0-0.3); EOSINOPHILS % (AUTO) 5 % (0-10); HEMATOCRIT 30 % (40-54); HEMOGLOBIN 9.9 G/DL (13.3-17.7); LYMPHOCYTES # (AUTO) 0.9 X 10^3 (1.0-4.0); LYMPHOCYTES % (AUTO) 12 % (12-44); MEAN CORPUSCULAR HEMOGLOBIN 32 PG (25-34); MEAN CORPUSCULAR HGB CONC 34 G/DL (32-36); MEAN CORPUSCULAR VOLUME 95 FL (80-99); MEAN PLATELET VOLUME 9.4 FL (7.4-10.4); MONOCYTES # (AUTO) 0.8 X 10^3 (0.0-1.0); MONOCYTES % (AUTO) 11 % (0-12); NEUTROPHILS # (AUTO) 5.6 X 10^3 (1.8-7.8); NEUTROPHILS % (AUTO) 72 % (42-75); PLATELET COUNT 254 10^3/uL (130-400); RED BLOOD COUNT 3.12 10^6/uL (4.35-5.85); RED CELL DISTRIBUTION WIDTH 13.9 % (10.0-14.5); WHITE BLOOD COUNT 7.7 10^3/uL (4.3-11.0)
[2018-03-07 04:04] LABS: ALANINE AMINOTRANSFERASE 42 U/L (0-55); ALBUMIN 3.3 GM/DL (3.2-4.5); ALKALINE PHOSPHATASE 80 U/L (40-136); BILIRUBIN,TOTAL 0.7 MG/DL (0.1-1.0); BUN/CREATININE RATIO 23; CALCIUM 8.7 MG/DL (8.5-10.1); CARBON DIOXIDE 27 MMOL/L (21-32); CHLORIDE 106 MMOL/L (98-107); GFR ESTIMATED > 60; GLUCOSE 117 MG/DL (70-105); MAGNESIUM 1.7 MG/DL (1.8-2.4); POTASSIUM 3.7 MMOL/L (3.6-5.0); SODIUM 142 MMOL/L (135-145); TOTAL PROTEIN 5.9 GM/DL (6.4-8.2)
[2018-03-07] MEDS: POTASSIUM CL 10MEQ/50ML IVPB 50 ML IV SCH (04:07)
[2018-03-07] MEDS: MAGNESIUM 1 GM/100 ML IVPB 100 ML IV SCH ×3 (04:08→06:33)
[2018-03-07] MEDS: KCL 20 MEQ TAB (K-DUR) PO SCH (04:08)
[2018-03-07] MEDS: MEROPENEM 500 MG in NS (IVPB) 100 ML IV SCH (04:14)
[2018-03-07] MEDS: CATHETER FLUSH 10 ML SYR IV SCH ×3 (05:29→22:12)
--- NOTE | 2018-03-07 05:30 | Pulmonary Consultation ---
History of Present Illness History of Present Illness Date of Consultation 03/07/18 05:24 Time Seen by Provider: 05:24 Date of Admission History of Present Illness 82yo who was just discharged from [facility] and in route to assisted when he became combative. He was take to ED and was sedated then required BIPAP. He was at [facility] secondary to ICH post fall. Patients can not take care of patient at home. PT was placed on Levaquin secondary to pneumonia from [facility]. He had also received a coarse of Meropenem. Pt is currently sedated on BiPAP with sitter at bedside. Unable to obtain ROS. Allergies and Home Medications Allergies Coded Allergies: gabapentin (Verified Allergy, Unknown, 02/27/17) morphine (Verified Allergy, Unknown, PT TAKES HYDROCODONE @ HOME, 02/27/17) Home Medications Alprazolam 0.25 Mg Tablet, 0.5 MG PO DAILY PRN for ANXIETY, (Reported) Amoxicillin 875 Mg Tablet, 875 MG PO BID Prescribed by: GAURI ANDRES on 01/26/18 1033 Aspirin 81 Mg Tablet.dr, 81 MG PO HS, (Reported) Benzonatate 200 Mg Capsule, 200 MG PO TID, (Reported) Calcium Polycarbophil 625 Mg Tablet, 625 MG PO DAILY, (Reported) Carbidopa/Levodopa 1 Each Tablet.er, 1.5 EACH PO QID, (Reported) Fentanyl 1 Each Patch.td72, 100 MCG TD Q72H, (Reported) Folic Acid/Multivit-Min/Lutein 1 Each Tab.chew, 1 TAB.CHEW PO BID, (Reported) Hydrocodone/Acetaminophen 1 Each Tablet, 1-2 EACH PO Q4H PRN for PAIN-MODERATE, (Reported) Isosorbide Mononitrate 30 Mg Tab.er.24h, 30 MG PO DAILY, (Reported) Lactobacillus Combo No.10 1 Each Capsule, 1 EACH PO BID Prescribed by: GAURI ANDRES on 01/26/18 1033 Magnesium Oxide 250 Mg Tablet, 250 MG PO DAILY, (Reported) Nitroglycerin 0.4 Mg Tab.subl, 0.4 MG SL PRN PRN for CHEST PAIN, (Reported) Oxybutynin Chloride 5 Mg Tablet, 5 MG PO DAILY, (Reported) Oxybutynin Chloride 5 Mg Tablet, 10 MG PO HS, (Reported) Pantoprazole Sodium 40 Mg Tablet.dr, 40 MG PO DAILY, (Reported) Paroxetine HCl 20 Mg Tablet, 40 MG PO DAILY, (Reported) Pramipexole Di-HCl 1 Mg Tablet, 1 MG PO TID, (Reported) Rivaroxaban 20 Mg Tablet, 20 MG PO 1800, (Reported) Rivastigmine 1 Each Patch.td24, 13.3 MG TD 1900, (Reported) Sennosides/Docusate Sodium 1 Each Tablet, 1 EACH PO QID, (Reported) Tamsulosin HCl 0.4 Mg Cap.er.24h, 0.4 MG PO DAILY, (Reported) Past Cshygwf-Pyfesu-Vqruco Hx Past Med/Social Hx: Reviewed Nursing Past Med/Soc Hx Patient Social History Alcohol Use: Rarely Uses Number of Drinks Today: AA Alcohol Beverage of Choice: Beer Recreational Drug Use: No Smoking Status: Former Smoker Type Used: Cigarettes Former Smoker, Quit: Feb 27, 1979 2nd Hand Smoke Exposure: No Contact w/Someone Who Travel: No Recent Infectious Disease Expo: No Recent Hopitalizations: Yes (HEAD BLEED/PNEM) Physical Abuse: No Sexual Abuse: No Immunizations Up To Date Tetanus Booster (TDap): Unknown PED Vaccines UTD: Yes Date of Pneumonia Vaccine: Jan 30, 2014 Date of Influenza Vaccine: Sep 01, 2017 Seasonal Allergies Seasonal Allergies: No Past Medical History Surgeries: Yes ( TEETH PULLED, ULCER SX, BACK SX X2, OPEN HEART SURGERY WITH X 3 BYPASS) Abdominal, Appendectomy, CABG, Orthopedic, Pacemaker Respiratory: Yes Pneumonia Currently Using CPAP: No Currently Using BIPAP: No Cardiac: Yes (PACEMAKER. CAROTID DISEASE. 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 AV BLOCK. RBBB) Atrial Fibrillation, Coronary Artery Disease, Heart Attack, High Cholesterol, Hypertension Neurological: Yes (HX acute dementia, intracranial hemorrhage) Dementia, Parkinson's Disease Reproductive Disorders: No Sexually Transmitted Disease: No HIV/AIDS: No Genitourinary: Yes Kidney Stones, Renal Failure Gastrointestinal: Yes Gastroesophageal Reflux, Chronic Constipation, Ulcer Musculoskeletal: Yes (CHRONIC GENERALIZED PAIN. CHRONIC LEG CRAMPS, spinal stenosis) Arthritis, Back Injury, Chronic Back Pain Endocrine: No Loss of Vision: Bilateral Hearing Impairment: Hard of Hearing Cancer: No Psychosocial: Yes (hx of dementia/zain) Anxiety Nursing Suicide Risk Score: 0 Integumentary: No Blood Disorders: No Adverse Reaction/Blood Tranf: No Family Medical History Reviewed Nursing Family Hx Cancer 03 FATHER, Onset:60 years & older Cancer of colon 09 BROTHER, Onset:60 years & older Congestive heart failure 03 MOTHER, Onset:60 years & older 09 BROTHER, Onset:60 years & older Family history: Diabetes mellitus 09 BROTHER, Onset:50's - 60 Myocardial infarction 09 BROTHER (colon ca) No Family History of: Congenital heart disease Review of Systems Time Seen by Provider: 05:31 Exam Exam Vital Signs Date Time Temp Pulse Resp B/P (MAP) Pulse Ox O2 Delivery O2 Flow Rate FiO2 03/07/18 05:00 60 12 124/52 (76) 100 NIV Bilevel 30.00 03/07/18 04:09 60 12 98 30.00 03/07/18 04:00 60 12 111/55 (73) 100 NIV Bilevel 30.00 03/07/18 04:00 98 NIV Bilevel 30.00 03/07/18 04:00 99.0 03/07/18 03:00 60 29 110/55 (73) 98 NIV Bilevel 30.00 03/07/18 02:19 60 26 95 30.00 03/07/18 02:00 60 30 103/52 (69) 100 NIV Bilevel 30.00 03/07/18 01:00 60 03/07/18 01:00 60 20 99/50 (66) 97 NIV Bilevel 30.00 03/07/18 00:54 61 18 98 NIV Bilevel 40.00 03/07/18 00:54 60 19 97 40.00 03/07/18 00:00 61 13 120/62 (81) 98 NIV Bilevel 40.00 03/07/18 00:00 98 NIV Bilevel 40.00 03/06/18 23:30 59 15 153/69 (97) 99 NIV Bilevel 03/06/18 23:30 61 18 153/69 (97) 98 NIV Bilevel 40.00 03/06/18 23:07 65 22 149/77 (101) 98 NIV Bilevel 03/06/18 23:00 62 19 149/77 (101) 100 NIV Bilevel 40.00 03/06/18 23:00 65 22 149/77 (101) 98 NIV Bilevel 03/06/18 22:45 59 178/84 (115) 03/06/18 22:45 62 25 178/84 (115) 99 NIV Bilevel 40.00 03/06/18 22:36 63 23 100 40.00 03/06/18 22:30 60 23 174/73 (106) 100 NIV Bilevel 40.00 03/06/18 22:30 59 174/73 (106) 03/06/18 22:15 60 176/75 (108) 97 NIV Bilevel 40.00 03/06/18 22:15 66 176/75 (108) 03/06/18 22:00 62 171/80 (110) 03/06/18 22:00 60 171/80 (110) 98 NIV Bilevel 40.00 03/06/18 22:00 66 171/80 (110) 03/06/18 21:45 97.6 60 28 171/82 (111) 98 NIV Bilevel 03/06/18 21:45 63 171/82 (111) 97 NIV Bilevel 40.00 03/06/18 21:30 97.8 64 26 154/64 (94) 99 NIV Bilevel 03/06/18 21:30 66 154/64 (94) 98 NIV Bilevel 40.00 03/06/18 21:15 60 150/69 (96) 96 NIV Bilevel 40.00 03/06/18 21:15 62 150/69 (96) 03/06/18 21:00 71 167/67 (100) 99 NIV Bilevel 40.00 03/06/18 21:00 70 167/67 (100) 03/06/18 20:57 70 99 50 03/06/18 20:57 70 26 99 50.00 03/06/18 20:45 68 190/90 (123) 18 20:45 68 190/90 (123) 99 NIV Bilevel 50.00 03/06/18 20:35 96 NIV Bilevel 40 18 20:30 66 209/79 (122) 100 NIV Bilevel 50.00 03/06/18 20:30 66 209/79 (122) 18 20:15 76 157/98 (117) 96 NIV Bilevel 50.00 18 20:15 76 157/98 (117) 03/06/18 20:09 97.8 69 146/80 (102) 18 20:09 69 146/80 (102) 96 NIV Bilevel 50.00 03/06/18 19:05 84 03/06/18 17:12 97.5 85 18 186/85 (118) 93 Room Air I & O 03/07/18 07:00 Intake Total 0 ml Output Total 4950 ml Balance -4950 ml General Appearance: WD/WN, Mild Distress, Other (anxious and agitated) HEENT: PERRL/EOMI, TMs Normal, Pharynx Normal Neck: Non Tender, Supple Respiratory: No Respiratory Distress, Crackles (bilateral bases) Cardiovascular: Regular Rate, Rhythm, No Murmur Capillary Refill: Less Than 3 Seconds Extremity: Normal Range of Motion, Non Tender Neurologic/Psychiatric: Other (sedated on BIPAP) Skin: Warm/Dry, Ecchymosis (multiple areas on the face and bilateral arms) Results Lab Laboratory Tests 03/06/18 18:05 03/07/18 03:30 Assessment/Plan Assessment/Plan Acute psychosis -Haldol IV -Geodon Pneumonia Dementia ICH - recently treated at [place] [id number] DAGMAR MCGRAW DO Mar 07, 2018 05:30
[2018-03-07] MEDS: ZIPRASIDONE 20 MG (GEODON) CAP PO SCH ×2 (05:40→17:02)
[2018-03-07] MEDS: RT-ALBUTEROL/IPRATROPIUM 3 ML (DUONEB) VIAL INH SCH ×4 (06:39→18:56)
--- NOTE | 2018-03-07 07:36 | Diagnostic Imaging Report ---
INDICATION: Pneumonia. COMPARISON: 03/06/2018. FINDINGS: Single frontal radiographic view of the chest was obtained and demonstrates improved cardiac silhouette and pulmonary vasculature. Sternotomy wires and left-sided pacemaker noted. Interstitial pulmonary edema is also improved. There is no focal consolidation, large effusion, nor pneumothorax on today's exam. Bony structures show no gross acute abnormalities. IMPRESSION: 1. Interval improved pulmonary vascular congestion and interstitial pulmonary edema. Dictated by: Dictated on workstation # [id number]
[2018-03-07] MEDS: LEVETIRACETAM INJECTION 500 MG in NS (IVPB) 100 ML IV SCH ×2 (08:56→21:31)
[2018-03-07] MEDS ORDERED: HALOPERIDOL 5 MG/ML (HALDOL) AMP IV SCH (09:00)
[2018-03-07] MEDS ORDERED: CARB1TAB6 PO (09:12)
[2018-03-07] MEDS ORDERED: FENT1PAT8 TD (09:12)
[2018-03-07] MEDS ORDERED: TRAM50TA2 PO (09:12)
[2018-03-07] MEDS ORDERED: PARO40TA3 PO (09:12)
[2018-03-07] MEDS ORDERED: OLAN5TAB3 PO (09:12)
[2018-03-07] MEDS ORDERED: LEVO750T9 PO (09:12)
[2018-03-07] MEDS ORDERED: LACT1CAP39 PO (09:12)
[2018-03-07] MEDS ORDERED: AMLO5TAB2 PO (09:12)
[2018-03-07] MEDS ORDERED: CARB1TAB19 PO (09:12)
[2018-03-07] MEDS ORDERED: LEVE500T99 PO (09:12)
[2018-03-07] MEDS: HYDROmorphone 2 MG/ML VIAL (DILAUDID) IVP PRN ×3 (11:06→17:37)
[2018-03-07] MEDS: NS IV 1000 ML 1,000 ML IV SCH (11:06)
[2018-03-07] MEDS: HALOPERIDOL 5 MG/ML (HALDOL) AMP IV SCH ×2 (11:33→22:12)
[2018-03-07] MEDS: LORazepam INJ 2 MG/ML (ATIVAN) VIAL IVP PRN (12:42)
[2018-03-07] MEDS ORDERED: LORazepam INJ 2 MG/ML (ATIVAN) VIAL ONE (12:42)
--- NOTE | 2018-03-07 13:30 | History & Physical-Hospitalist ---
History of Present Illness HPI/Chief Complaint Mr. John a frail 82-year-old white male with advanced Parkinson's diseaseand moderately advanced dementia who apparently fell at home striking his right for head. CT scanning in the emergency room revealed a right sub- ural hematomawith right intraparenchymal hemorrhage and likely contusion involving the frontal lobe. Initially according to his ,there was no increase in confusion or agitated behavior but some associated mild sedation. This occurred 9 days prior to current admission. He was transferred to [place] and was discharged earlier todayhaving required no intervention. reports one week ago he became increasingly confused and agitated with persistent delirium. This got significantly worse in his ambulance ride from [place] to [facility] necessitating a transfer to our emergency room. He was extremely combative and apparently took several people to restrain him. he has been predisposed to narcotic withdrawal in Duragesic patcheshave come off with agitated behavior. He was due for a patch change with his patch was reportedly adherent.patient wasmildly agitated unable to communicate during her interview moving all extremities taking hissheets off and making weak attempts to get out of bed. Date Seen 03/07/18 Time Seen by Provider: 11:30 Attending Physician Gerry Jane M.D. PCP Gerry Jane MD Referring Physician Date of Admission Mar 06, 2018 at 19:35 Home Medications & Allergies Home Medications Reviewed patient Home Medication Reconciliation performed by pharmacy medication reconciliations in shop service technician and/or nursing. Patients Allergies have been reviewed. Allergies Allergies Coded Allergies gabapentin (Verified Allergy, Unknown, 02/27/17) morphine (Verified Allergy, Unknown, PT TAKES HYDROCODONE @ HOME, 02/27/17) Past Aznodqm-Bkkfdb-Xjganv Hx Past Med/Social Hx: Reviewed Nursing Past Med/Soc Hx Patient Social History Alcohol Use: Rarely Uses Number of Drinks Today: AA Alcohol Beverage of Choice: Beer Recreational Drug Use: No Smoking Status: Former Smoker Former Smoker, Quit: Feb 27, 1979 Type Used: Cigarettes 2nd Hand Smoke Exposure: No Physical Abuse Screen: No Sexual Abuse: No Contact w/other who traveled: No Recent Hopitalizations: Yes (HEAD BLEED/PNEM) Recent Infectious Disease Expo: No Immunizations Up To Date Tetanus Booster (TDap): Unknown Pediatric: Yes Date of Pneumonia Vaccine: Jan 30, 2014 Date of Influenza Vaccine: Sep 01, 2017 Seasonal Allergies Seasonal Allergies: No Past Medical History Surgeries: Abdominal, Appendectomy, CABG, Orthopedic, Pacemaker Respiratory: Pneumonia Currently Using CPAP: No Currently Using BIPAP: No Cardiac: Atrial Fibrillation, Coronary Artery Disease, Heart Attack, High Cholesterol, Hypertension Neurological: Dementia, Parkinson's Disease Reproductive: No Sexually Transmitted Disease: No HIV/AIDS: No Genitourinary: Kidney Stones, Renal Failure Gastrointestinal: Gastroesophageal Reflux, Chronic Constipation, Ulcer Musculoskeletal: Arthritis, Back Injury, Chronic Back Pain Loss of Vision: Bilateral Hearing Impairment: Hard of Hearing Psychosocial: Anxiety History of Blood Disorders: No Adverse Reaction to Blood Schmitz: No Family History Reviewed Nursing Family Hx Cancer 03 FATHER, Onset:60 years & older Cancer of colon 09 BROTHER, Onset:60 years & older Congestive heart failure 03 MOTHER, Onset:60 years & older 09 BROTHER, Onset:60 years & older Family history: Diabetes mellitus 09 BROTHER, Onset:50's - 60 Myocardial infarction 09 BROTHER (colon ca) No Family History of: Congenital heart disease Review of Systems Constitutional: no symptoms reported (patient unable to give history due to delirium) Physical Exam Physical Exam Vital Signs Vital Signs - First Documented 03/06/18 03/06/18 17:12 20:35 Temp 97.5 Pulse 85 Resp 18 B/P (MAP) 186/85 (118) Pulse Ox 93 O2 Delivery Room Air FiO2 40 Capillary Refill : Less Than 3 Seconds General Appearance: Mild Distress, Thin HEENT: Other (I'll right forehead laceration no evidence for erythema and no swelling noted no depression noted significant ecchymosis without swelling over the right side of his face and forehead) Neck: Full Range of Motion Respiratory: Chest Non Tender, Lungs Clear, Normal Breath Sounds, No Accessory Muscle Use, No Respiratory Distress Cardiovascular: Regular Rate, Rhythm, No Edema, No Gallop, No JVD, No Murmur, Normal Peripheral Pulses Gastrointestinal: Normal Bowel Sounds, No Organomegaly, No Pulsatile Mass, Non Tender, Soft Extremity: Normal Capillary Refill, Normal Inspection, Normal Range of Motion, No Pedal Edema Results Results/Procedures Labs Laboratory Tests 03/06/18 18:05 03/07/18 03:30 Patient resulted labs reviewed. Assessment/Plan Admission Diagnosis 1. Post traumatic right subdural hematoma and right frontal lobe contusion with hemorrhage. I suspect that CT findings are all old although a small recurrent intracerebral hemorrhage is still possible. 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 2. Pulmonary edema currently chest is clear I suspect that this is improved significantly Neurocardiogenic edema is most likely although acute on chronic diastolic heart failuredue to underlying hypertensive heart disease is in the differential. Continue to monitor see no need for diuretic therapy at this time. 3. Paroxysmal atrial fibrillation anticoagulant therapy being held due to number 1 4. 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 After discussion with his she is in agreement with DO NOT RESUSCITATE status which will be initiated. 5. History of coronary artery disease. 6. Pneumonia doubtful there is no history laboratory findings or physical exam findings to suggest pneumonia at this time we'll discontinue meropenem. Admission Status: Inpatient Order (span 2 midnights) Reason for Inpatient Admission: see admission diagnosis Assessment and Plan see admission diagnosis Critical Care Critically Ill Patient Clinical Quality Measures DVT/VTE Risk/Contraindication: Risk Factor Score Per Nursin RFS Level Per Nursing on Admit: 3=High GERRY JANE MD Mar 07, 2018 13:30
[2018-03-07] MEDS ORDERED: FENTANYL 25 MCG PATCH REMOVAL TP SCH (15:29)
[2018-03-07] MEDS: fentaNYL PATCH 100 MCG (DURAGESIC) TD SCH (15:54)
[2018-03-07] MEDS: NS IV SCH ×4 (18:30→21:10)
[2018-03-07] MEDS: DEXMEDETOMIDINE IV SCH ×4 (18:30→21:10)
[2018-03-08] VITALS (23 sets, daily range): BP systolic 91–133; BP diastolic 37–82
[2018-03-08] MEDS: NS IV 1000 ML 1,000 ML IV SCH ×2 (00:22→11:46)
[2018-03-08 03:41] LABS: BASOPHILS % (AUTO) 0 % (0-10); EOSINOPHILS # (AUTO) 0.5 10^3/uL (0.0-0.3); EOSINOPHILS % (AUTO) 6 % (0-10); HEMATOCRIT 31 % (40-54); HEMOGLOBIN 10.2 G/DL (13.3-17.7); LYMPHOCYTES # (AUTO) 1.4 X 10^3 (1.0-4.0); LYMPHOCYTES % (AUTO) 16 % (12-44); MEAN CORPUSCULAR HEMOGLOBIN 32 PG (25-34); MEAN CORPUSCULAR HGB CONC 33 G/DL (32-36); MEAN CORPUSCULAR VOLUME 98 FL (80-99); MEAN PLATELET VOLUME 10.2 FL (7.4-10.4); MONOCYTES # (AUTO) 1.2 X 10^3 (0.0-1.0); MONOCYTES % (AUTO) 14 % (0-12); NEUTROPHILS # (AUTO) 5.3 X 10^3 (1.8-7.8); NEUTROPHILS % (AUTO) 63 % (42-75); PLATELET COUNT 250 10^3/uL (130-400); RED BLOOD COUNT 3.17 10^6/uL (4.35-5.85); RED CELL DISTRIBUTION WIDTH 14.3 % (10.0-14.5); WHITE BLOOD COUNT 8.4 10^3/uL (4.3-11.0)
[2018-03-08 04:03] LABS: BUN/CREATININE RATIO 25; CALCIUM 8.5 MG/DL (8.5-10.1); CARBON DIOXIDE 25 MMOL/L (21-32); CHLORIDE 105 MMOL/L (98-107); CREATININE SERUM 0.83 MG/DL (0.60-1.30); GFR ESTIMATED > 60; GLUCOSE 85 MG/DL (70-105); MAGNESIUM 2.1 MG/DL (1.8-2.4); PHOSPHORUS 2.7 MG/DL (2.3-4.7); POTASSIUM 4.4 MMOL/L (3.6-5.0); SODIUM 141 MMOL/L (135-145)
[2018-03-08] MEDS: CATHETER FLUSH 10 ML SYR IV SCH ×3 (04:05→21:17)
[2018-03-08] MEDS: POTASSIUM CL 10MEQ/50ML IVPB 50 ML IV SCH (04:06)
[2018-03-08] MEDS: KCL 20 MEQ TAB (K-DUR) PO SCH (04:06)
[2018-03-08] MEDS: MAGNESIUM 1 GM/100 ML IVPB 100 ML IV SCH (04:06)
[2018-03-08] MEDS: RT-ALBUTEROL/IPRATROPIUM 3 ML (DUONEB) VIAL INH SCH ×4 (07:43→18:55)
--- NOTE | 2018-03-08 08:25 | Diagnostic Imaging Report ---
INDICATION: Pneumonia. TECHNIQUE: Single view chest 3:52 AM. CORRELATION STUDY: 03/07/2018 FINDINGS: Poststernotomy and coronary artery bypass. Heart size is enlarged. Vasculature has increased from prior study. Left-sided pacemaker unchanged. Prominent interstitial markings compatible with component of edema appears increased from prior study. No infiltrate. IMPRESSION: 1. Findings suggestive of fluid overload or failure with mild interstitial edema, slightly increased. No definitive focal pulmonary infiltrate. Dictated by: Dictated on workstation # [id number]
--- NOTE | 2018-03-08 08:47 | Progress Note-Hospitalist ---
Subjective HPI/CC On Admission Date Seen by Provider: Mar 08, 2018 Time Seen by Provider: 08:42 Mr. John a frail 82-year-old white male with advanced Parkinson's diseas eand moderately advanced dementia who apparently fell at home striking his right for head. CT scanning in the emergency room revealed a right sub-ural hematomawith right intraparenchymal hemorrhage and likely contusion involving the frontal lobe. Initially according to his ,there was no increase in confusion or agitated behavior but some associated mild sedation. This occurred 9 days prior to current admission. He was transferred to [place] and was discharged earlier todayhaving required no intervention. reports one week ago he became increasingly confused and agitated with persistent delirium. This got significantly worse in his ambulance ride from [facility] to [facility] necessitating a transfer to our emergency room. He was extremely combative and apparently took several people to restrain him. he has been predisposed to narcotic withdrawal in Duragesic patcheshave come off with agitated behavior. He was due for a patch change with his patch was reportedly adherent.patient wasmildly agitated unable to communicate during her interview moving all extremities taking hissheets off and making weak attempts to get out of bed. Subjective/Events-last exam Pt is alert but does not respond verbally. He did appear to acknowledge my presence in room. ROS unobtainable. Objective Exam Vital Signs Vital Signs Date Time Temp Pulse Resp B/P (MAP) Pulse Ox O2 Delivery O2 Flow Rate FiO2 03/06/18 17:12 97.5 85 18 186/85 (118) 93 Room Air 03/06/18 20:09 50.00 03/06/18 20:35 40 Capillary Refill : Less Than 3 Seconds General Appearance: Chronically ill Respiratory: Lungs Clear, No Respiratory Distress Cardiovascular: Regular Rate, Rhythm, No Murmur Gastrointestinal: Normal Bowel Sounds, Non Tender, Soft Neurologic/Psychiatric: Alert, Other (did not verbally respond) Results/Procedures Lab Laboratory Tests 03/08/18 03:15 Patient resulted labs reviewed. Assessment/Plan Assessment and Plan Assess & Plan/Chief Complaint 1. Post traumatic right subdural hematoma and right frontal lobe contusion with intracranial hemorrhage. Imaging discussed with Dr Aguiar (Neurosurgeon who card for him at [facility]) and he was not concerned about CT findings here. Continue to monitor 2. Pulmonary edema1 resolved 3. Paroxysmal atrial fibrillation anticoagulant therapy being held due to number 1, rate well controlled 4. 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 After discussion with his she is in agreement with DO NOT RESUSCITATE status which will be initiated per Dr Meek. 5. History of coronary artery disease. 6. DC Planning- will monitor over weekend and will likely need placement and had originally planned to go [facility] Critical Care: Critically Ill Patient Clinical Quality Measures DVT/VTE Risk/Contraindication: Risk Factor Score Per Nursin RFS Level Per Nursing on Admit: 3=High GAURI ANDRES MD Mar 08, 2018 08:47
[2018-03-08] MEDS: HYDROmorphone 2 MG/ML VIAL (DILAUDID) IVP PRN (08:53)
[2018-03-08] MEDS: HALOPERIDOL 5 MG/ML (HALDOL) AMP IV SCH ×2 (08:53→21:15)
[2018-03-08] MEDS: ZIPRASIDONE 20 MG (GEODON) CAP PO SCH ×2 (08:53→17:15)
[2018-03-08] MEDS ORDERED: NON-FORMULARY MEDICATION 1 EA EA (Pramipexole Di-HCl (Pramipexole Dihydrochloride) 1 MG) PO SCH (09:00)
[2018-03-08] MEDS: SINEMET 25/100 (CARBIDOPA/LEVODOPA) TAB PO SCH ×3 (09:09→17:15)
[2018-03-08] MEDS: PRAMIPEXOLE 0.5 MG TAB (MIRAPEX) PO SCH ×3 (09:09→21:15)
[2018-03-08] MEDS: LEVETIRACETAM 500 MG (KEPPRA) TAB PO SCH ×2 (09:09→21:15)
[2018-03-08] MEDS: PARoxetine 20 MG (PAXIL) TAB PO SCH (11:47)
[2018-03-08] MEDS ORDERED: NON-FORMULARY MEDICATION 1 EA EA (Paroxetine HCl 40 MG) PO SCH (12:00)
[2018-03-08] MEDS ORDERED: PATIENT MAY USE OWN MED,SINGLE MED PO SCH (15:45)
[2018-03-08] MEDS: RIVASTIGMINE PATCH REMOVAL TP SCH (21:15)
[2018-03-08] MEDS: RIVASTIGMINE 13.3 MG/24 HR PATCH TD SCH (21:16)
[2018-03-09] VITALS (12 sets, daily range): BP systolic 111–175; BP diastolic 44–90
[2018-03-09] MEDS: NS IV 1000 ML 1,000 ML IV SCH ×2 (02:50→15:34)
[2018-03-09] MEDS: HYDROmorphone 2 MG/ML VIAL (DILAUDID) IVP PRN ×5 (03:26→21:47)
[2018-03-09 04:14] LABS: BASOPHILS % (AUTO) 0 % (0-10); EOSINOPHILS # (AUTO) 0.3 10^3/uL (0.0-0.3); EOSINOPHILS % (AUTO) 3 % (0-10); HEMATOCRIT 32 % (40-54); HEMOGLOBIN 10.2 G/DL (13.3-17.7); LYMPHOCYTES # (AUTO) 1.3 X 10^3 (1.0-4.0); LYMPHOCYTES % (AUTO) 12 % (12-44); MEAN CORPUSCULAR HEMOGLOBIN 32 PG (25-34); MEAN CORPUSCULAR HGB CONC 32 G/DL (32-36); MEAN CORPUSCULAR VOLUME 100 FL (80-99); MEAN PLATELET VOLUME 9.6 FL (7.4-10.4); MONOCYTES # (AUTO) 1.4 X 10^3 (0.0-1.0); MONOCYTES % (AUTO) 13 % (0-12); NEUTROPHILS # (AUTO) 7.8 X 10^3 (1.8-7.8); NEUTROPHILS % (AUTO) 72 % (42-75); PLATELET COUNT 285 10^3/uL (130-400); RED BLOOD COUNT 3.17 10^6/uL (4.35-5.85); RED CELL DISTRIBUTION WIDTH 14.4 % (10.0-14.5); WHITE BLOOD COUNT 10.8 10^3/uL (4.3-11.0)
[2018-03-09 04:43] LABS: BUN/CREATININE RATIO 27; CALCIUM 8.6 MG/DL (8.5-10.1); CARBON DIOXIDE 24 MMOL/L (21-32); CHLORIDE 107 MMOL/L (98-107); CREATININE SERUM 0.82 MG/DL (0.60-1.30); GFR ESTIMATED > 60; GLUCOSE 114 MG/DL (70-105); MAGNESIUM 1.9 MG/DL (1.8-2.4); PHOSPHORUS 2.9 MG/DL (2.3-4.7); POTASSIUM 4.7 MMOL/L (3.6-5.0); SODIUM 140 MMOL/L (135-145)
[2018-03-09] MEDS: MAGNESIUM 1 GM/100 ML IVPB 100 ML IV SCH (05:35)
[2018-03-09] MEDS: POTASSIUM CL 10MEQ/50ML IVPB 50 ML IV SCH (05:35)
[2018-03-09] MEDS: KCL 20 MEQ TAB (K-DUR) PO SCH (05:36)
[2018-03-09] MEDS: CATHETER FLUSH 10 ML SYR IV SCH ×3 (05:55→22:00)
[2018-03-09] MEDS: RT-ALBUTEROL/IPRATROPIUM 3 ML (DUONEB) VIAL INH SCH ×4 (06:54→20:09)
[2018-03-09] MEDS: LEVETIRACETAM 500 MG (KEPPRA) TAB PO SCH ×2 (08:00→21:32)
[2018-03-09] MEDS: PRAMIPEXOLE 0.5 MG TAB (MIRAPEX) PO SCH ×3 (08:00→21:32)
[2018-03-09] MEDS: ZIPRASIDONE 20 MG (GEODON) CAP PO SCH ×2 (08:00→16:47)
[2018-03-09] MEDS: HALOPERIDOL 5 MG/ML (HALDOL) AMP IV SCH ×2 (08:00→21:29)
[2018-03-09] MEDS: SINEMET 25/100 (CARBIDOPA/LEVODOPA) TAB PO SCH ×4 (08:00→16:47)
--- NOTE | 2018-03-09 08:52 | Diagnostic Imaging Report ---
PATIENT HISTORY: Bilateral pneumonia, psychosis, agitation. TECHNIQUE: Single frontal view of the chest COMPARISON: 03/08/2018 FINDINGS: There are mildly increased airspace opacities in the left lung base. Interstitial markings appear mildly improved. There is persistent mild central vascular congestion. No pneumothorax or pleural effusion is seen. The left-sided pacemaker is in stable position. IMPRESSION: 1. Mildly increased left basilar airspace opacity, may be due to atelectasis, edema or infection. 2. Improved interstitial opacities in the lungs bilaterally. Persistent central vascular congestion. Dictated by: Dictated on workstation # [id number]
--- NOTE | 2018-03-09 09:03 | Progress Note-Hospitalist ---
Subjective HPI/CC On Admission Date Seen by Provider: Mar 09, 2018 Time Seen by Provider: 09:00 Mr. John a frail 82-year-old white male with advanced Parkinson's diseas eand moderately advanced dementia who apparently fell at home striking his right for head. CT scanning in the emergency room revealed a right sub-ural hematomawith right intraparenchymal hemorrhage and likely contusion involving the frontal lobe. Initially according to his ,there was no increase in confusion or agitated behavior but some associated mild sedation. This occurred 9 days prior to current admission. He was transferred to [place] and was discharged earlier todayhaving required no intervention. reports one week ago he became increasingly confused and agitated with persistent delirium. This got significantly worse in his ambulance ride from [place] to [facility] necessitating a transfer to our emergency room. He was extremely combative and apparently took several people to restrain him. he has been predisposed to narcotic withdrawal in Duragesic patcheshave come off with agitated behavior. He was due for a patch change with his patch was reportedly adherent.patient wasmildly agitated unable to communicate during her interview moving all extremities taking hissheets off and making weak attempts to get out of bed. Subjective/Events-last exam Pt is alert but does not respond. ROS unobtainable. Per RN did well overnight. Objective Exam Vital Signs Vital Signs Date Time Temp Pulse Resp B/P (MAP) Pulse Ox O2 Delivery O2 Flow Rate FiO2 03/06/18 17:12 97.5 85 18 186/85 (118) 93 Room Air 03/06/18 20:09 50.00 03/06/18 20:35 40 Capillary Refill : Less Than 3 Seconds General Appearance: Chronically ill Respiratory: Lungs Clear, No Respiratory Distress Cardiovascular: Regular Rate, Rhythm, No Murmur Gastrointestinal: Normal Bowel Sounds, Non Tender, Soft Neurologic/Psychiatric: Alert, Other (altered mentation, does not respond but does acknowledge presense in the room, slight tremor noted of upper extremities) Skin: Ecchymosis (surrounding right eye) Results/Procedures Lab Laboratory Tests 03/09/18 03:20 Patient resulted labs reviewed. Assessment/Plan Assessment and Plan Assess & Plan/Chief Complaint 1. Post traumatic right subdural hematoma and right frontal lobe contusion with intracranial hemorrhage. Imaging discussed in ER with Dr Aguiar (Neurosurgeon who cared for him at [facility]) and he was not concerned about CT findings here. Continue to monitor neuro status 2. Pulmonary edema- resolved 3. Paroxysmal atrial fibrillation anticoagulant therapy being held due to number 1, rate well controlled 4. 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 After discussion with his she is in agreement with DO NOT RESUSCITATE status which will be initiated per Dr Meek. Sinemet restarted 5. History of coronary artery disease 6. Acute psychosis- improving. Continue Geodon and Haldol. Monitor on telemetry. Sitter at bedside. 7. DC Planning- will monitor over weekend and will likely need placement and had originally planned to go to [facility] Clinical Quality Measures DVT/VTE Risk/Contraindication: Risk Factor Score Per Nursin RFS Level Per Nursing on Admit: 3=High GAURI ANDRES MD Mar 09, 2018 9:03 am
[2018-03-09] MEDS: PARoxetine 20 MG (PAXIL) TAB PO SCH (12:39)
[2018-03-09] MEDS ORDERED: FENTANYL PATCH REMOVAL TP SCH (20:29)
[2018-03-09] MEDS: RIVASTIGMINE PATCH REMOVAL TP SCH (21:32)
[2018-03-09] MEDS: RIVASTIGMINE 13.3 MG/24 HR PATCH TD SCH (21:33)
[2018-03-10] VITALS: BP 156/61
[2018-03-10 04:00] VITALS: BP 148/69
[2018-03-10] MEDS: NS IV 1000 ML 1,000 ML IV SCH (04:23)
[2018-03-10 04:49] LABS: BASOPHILS % (AUTO) 0 % (0-10); EOSINOPHILS # (AUTO) 0.2 10^3/uL (0.0-0.3); EOSINOPHILS % (AUTO) 2 % (0-10); HEMATOCRIT 31 % (40-54); HEMOGLOBIN 10.1 G/DL (13.3-17.7); LYMPHOCYTES # (AUTO) 0.9 X 10^3 (1.0-4.0); LYMPHOCYTES % (AUTO) 9 % (12-44); MEAN CORPUSCULAR HEMOGLOBIN 32 PG (25-34); MEAN CORPUSCULAR HGB CONC 33 G/DL (32-36); MEAN CORPUSCULAR VOLUME 99 FL (80-99); MEAN PLATELET VOLUME 9.7 FL (7.4-10.4); MONOCYTES # (AUTO) 0.9 X 10^3 (0.0-1.0); MONOCYTES % (AUTO) 9 % (0-12); NEUTROPHILS # (AUTO) 8.1 X 10^3 (1.8-7.8); NEUTROPHILS % (AUTO) 80 % (42-75); PLATELET COUNT 278 10^3/uL (130-400); RED BLOOD COUNT 3.13 10^6/uL (4.35-5.85); WHITE BLOOD COUNT 10.1 10^3/uL (4.3-11.0)
[2018-03-10] MEDS: HYDROmorphone 2 MG/ML VIAL (DILAUDID) IVP PRN ×3 (04:53→21:21)
[2018-03-10 05:05] LABS: CARBON DIOXIDE 23 MMOL/L (21-32); CHLORIDE 106 MMOL/L (98-107); CREATININE SERUM 0.87 MG/DL (0.60-1.30); POTASSIUM 4.9 MMOL/L (3.6-5.0); SODIUM 140 MMOL/L (135-145)
[2018-03-10 05:06] LABS: BUN/CREATININE RATIO 24; CALCIUM 8.8 MG/DL (8.5-10.1); GFR ESTIMATED > 60; GLUCOSE 107 MG/DL (70-105); MAGNESIUM 1.7 MG/DL (1.8-2.4); PHOSPHORUS 2.5 MG/DL (2.3-4.7)
[2018-03-10] MEDS: ZIPRASIDONE 20 MG (GEODON) CAP PO SCH (05:08)
[2018-03-10] MEDS ORDERED: NS IV 1000 ML 1,000 ML IV SCH (05:19)
--- NOTE | 2018-03-10 05:21 | Pulmonary Progress Note ---
Subjective Time Seen by Provider: 05:17 Subjective/Events-last exam No complications noted. Exam Exam Vital Signs Date Time Temp Pulse Resp B/P (MAP) Pulse Ox O2 Delivery O2 Flow Rate FiO2 03/10/18 04:00 98.9 61 16 148/69 (95) 98 Room Air 03/10/18 04:00 100 Nasal Cannula 1.00 03/10/18 01:00 60 03/10/18 00:00 97.7 60 16 156/61 (92) 97 Nasal Cannula 1.00 03/10/18 00:00 100 Nasal Cannula 1.00 03/09/18 20:24 97 Nasal Cannula 1.00 03/09/18 20:09 88 Room Air 03/09/18 20:00 100 Nasal Cannula 1.00 03/09/18 20:00 97.1 60 14 175/75 (108) 88 Room Air 03/09/18 19:00 60 03/09/18 16:00 60 15 159/75 (103) 95 Room Air 03/09/18 16:00 100 Room Air 03/09/18 16:00 98.1 03/09/18 15:55 100 Room Air 03/09/18 13:00 60 03/09/18 12:00 98.9 86 20 140/76 (97) 100 Room Air 03/09/18 12:00 100 Room Air 03/09/18 10:50 100 Room Air 03/09/18 08:00 97.6 72 16 143/69 (93) 100 Room Air 03/09/18 08:00 100 Room Air 03/09/18 08:00 92 11 135/69 (91) 95 Room Air 03/09/18 07:00 59 18 145/90 (108) 100 Room Air 03/09/18 07:00 60 03/09/18 06:55 100 Room Air 03/09/18 06:00 60 18 134/56 (82) 98 Room Air I & O 03/10/18 07:00 Intake Total 2270 ml Output Total 1025 ml Balance 1245 ml General Appearance: Chronically ill Neck: Full Range of Motion Respiratory: Lungs Clear, No Respiratory Distress, Decreased Breath Sounds Cardiovascular: Regular Rate, Rhythm, No Murmur Capillary Refill: Less Than 3 Seconds Extremity: Normal Capillary Refill, Normal Inspection, Normal Range of Motion, No Pedal Edema Neurologic/Psychiatric: Alert, Other (altered mentation, does not respond but does acknowledge presense in the room, slight tremor noted of upper extremities) Skin: Normal Color, Warm/Dry, Ecchymosis (surrounding right eye) Lymphatic: No Adenopathy Results Lab Laboratory Tests 03/09/18 03:20 03/10/18 04:30 Assessment/Plan Assessment/Plan psychosis -Haldol -Geodon pulmonary edema -Decrease IVF Dementia ICH - recently treated at [place] [id number] Pt is doing well i am going to sign off. PT is 4th status currently. DAGMAR MCGRAW DO Mar 10, 2018 05:21
[2018-03-10] MEDS ORDERED: HYDROmorphone 2 MG/ML VIAL (DILAUDID) IVP ONE (05:30)
[2018-03-10] MEDS: CATHETER FLUSH 10 ML SYR IV SCH ×3 (06:14→21:21)
[2018-03-10] MEDS ORDERED: HALOPERIDOL 5 MG/ML (HALDOL) AMP IV PRN (06:15)
[2018-03-10] MEDS: POTASSIUM CL 10MEQ/50ML IVPB 50 ML IV SCH (06:15)
[2018-03-10] MEDS: KCL 20 MEQ TAB (K-DUR) PO SCH (06:15)
[2018-03-10] MEDS: MAGNESIUM 1 GM/100 ML IVPB 100 ML IV SCH ×3 (06:15→07:38)
[2018-03-10] MEDS: SINEMET 25/100 (CARBIDOPA/LEVODOPA) TAB PO SCH ×4 (06:19→17:25)
[2018-03-10] MEDS: RT-ALBUTEROL/IPRATROPIUM 3 ML (DUONEB) VIAL INH SCH ×4 (06:46→18:14)
--- NOTE | 2018-03-10 07:53 | Diagnostic Imaging Report ---
INDICATION: Acute psychosis, agitation, pneumonia. TECHNIQUE: Single view chest 3:25 AM. CORRELATION STUDY: 03/09/2018 FINDINGS: Patient is poststernotomy. Heart size enlarged. Vascularity is increased from prior study. There is also a component of interstitial edema, changed from prior study. Parenchymal density of the lung bases particularly left lung base is present, may reflect asymmetric edema versus infiltrate. IMPRESSION: 1. Findings of congestive heart failure have adversely developed since prior study. 2. Atelectasis, infiltrate, and edema about the left lung base slightly more prominent. Dictated by: Dictated on workstation # [id number]
[2018-03-10 08:00] VITALS: BP 169/73
[2018-03-10] MEDS: LEVETIRACETAM 500 MG (KEPPRA) TAB PO SCH ×2 (08:51→21:21)
[2018-03-10] MEDS: PRAMIPEXOLE 0.5 MG TAB (MIRAPEX) PO SCH ×3 (08:51→21:21)
[2018-03-10] MEDS: risperiDONE 1 MG (RisperDAL) TAB PO SCH ×2 (08:51→21:21)
[2018-03-10 12:00] VITALS: BP 157/67
[2018-03-10] MEDS: PARoxetine 20 MG (PAXIL) TAB PO SCH (12:39)
--- NOTE | 2018-03-10 12:51 | Physical Therapy Evaluation ---
PT Evaluation-General Medical Diagnosis Admission Date Mar 06, 2018 at 19:35 Medical Diagnosis: acute psychosis/pneumonia Onset Date: Mar 06, 2018 Therapy Diagnosis Therapy Diagnosis: generalized weakness/debility Height/Weight Height (Feet): 5 Height (Inches): 7.00 Weight (Pounds): 145 Weight (Ounces): 8.0 Precautions Precautions/Isolations: Fall Prevention, Standard Precautions Weight Bear Status Right Lower Extremity: Right Weight Bearing/Tolerated Left Lower Extremity: Left Weight Bearing/Tolerated Referral Physician: [place] Reason for Referral: Evaluation/Treatment Medical History Pertinent Medical History: Atrial Fib, CABG, CAD, Dementia, Heart Failure, HTN , NE, OA, Parkinson's, Renal Insufficiency Additional Medical History fall in the past 2 wks resulting in intracranial hemorrhage Current History EMS from [place] after being there x 1 hr from [place] secondary to being combative, confused and SOA Reviewed History: Yes Social History Home: Single Level Current Living Status: Spouse Entry Into Home: Stairs With Railing Prior/Core FIM Prior Level of Function Functional Bulloch Measure 0=Not Assessed/NA 4=Minimal Assistance 1=Total Assistance 5=Supervision or Setup 2=Maximal Assistance 6=Modified Bulloch 3=Moderate Assistance 7=Complete Bulloch Bed Mobility: 6 Transfers (B,C,W/C) (FIM): 6 Gait: 6 has FWW, uses occasionally PT Evaluation-Current Subjective Patient remembers this PT and agrees to PT. Pain Numeric Pain Scale: 0-No Pain Location: No Pain Reported Objective Patient Orientation: Person Problem Solving: Poor Attachments: Oxygen, Miller Catheter ROM/Strength ROM Lower Extremities bilateral LE WFL Strength Lower Extremities bilateral LE 3-/5 grossly (unable to formally test due to difficulty following simple direction) Integumentary/Posture Integumentary refer to nursing notes Bladder Incontinence: Miller Cath Posture flexed knee and trunk posture Neuromuscular (Tone, Coordination, Reflexes) diminished coordination and proprioception due to Parkinson's Sensory Vision: Wears Glasses Hearing: Functional Sensation Right Lower Extremit: Intact Sensation Left Lower Extremity: Intact Transfers Functional Bulloch Measure 0=Not Assessed/NA 4=Minimal Assistance 1=Total Assistance 5=Supervision or Setup 2=Maximal Assistance 6=Modified Bulloch 3=Moderate Assistance 7=Complete Bulloch Transfers (B, C, W/C) (FIM): 2 Scootin Rollin Supine to/from Sit: 2 Sit to/from Stand: 2 bed t/f WC(FIM only if WC use): 2 max assist with all bed mobility and transfers with maintaining sitting EOB with mod assist Gait Mode of Locomotion: Walk Anticipated Mode of Locomotion: Walk Gait (FIM): 1 Distance (FIM): 1=up to 49 ft Distance: 5' Gait Level of Assist: 2 Gait Persons Needed: 1 Comments/Gait Description patient is retropulsive and performs shuffle gait sequence with assist of PT Balance Sitting Static: Poor Sitting Dynamic: Poor Standing Static: Poor Standing Dynamic: Poor Assessment/Needs 82 y.o. male, will benefit from skilled PT to address functional strength and mobility to improve current LOF. Patient is currently limited in strength and mobility due to diagnosis and Parkinson's. Rehab Potential: Guarded PT Intermediate Goals Gasket Notcher Goals PT Gasket Notcher Goals Time Frame: Mar 21, 2018 Transfers (B,C,W/C) (FIM): 4 Gait (FIM): 2 Gait distance (FIM): 2=568-74 ft Distance: 100' Gait Level of Assist: 4 Gait Assistive Device: FWW PT Plan Problem List Problem List: Activity Tolerance, Functional Strength, Safety, Balance, Gait, Transfer, Bed Mobility Treatment/Plan Treatment Plan: Continue Plan of Care Treatment Plan: Bed Mobility, Education, Functional Activity Cesar, Functional Strength, Gait, Safety, Therapeutic Exercise, Transfers Treatment Duration: Mar 21, 2018 Frequency: 6 times per week Estimated Hrs Per Day: .5 hour per day Patient and/or Family Agrees t: Yes Time/GCodes Time In: 1115 Time Out: 1143 Total Billed Treatment Time: 28 [facility] Necessary: No CATE GREENWOOD PT Mar 10, 2018 12:51
[2018-03-10] MEDS: fentaNYL PATCH 100 MCG (DURAGESIC) TD SCH (15:49)
[2018-03-10] MEDS: [UNRECOGNIZED DRUG - REMARK] TP SCH (15:49)
--- NOTE | 2018-03-10 15:57 | Progress Note-Hospitalist ---
Subjective HPI/CC On Admission Date Seen by Provider: Mar 10, 2018 Time Seen by Provider: 08:30 Mr. John a frail 82-year-old white male with advanced Parkinson's diseas eand moderately advanced dementia who apparently fell at home striking his right for head. CT scanning in the emergency room revealed a right sub-ural hematomawith right intraparenchymal hemorrhage and likely contusion involving the frontal lobe. Initially according to his ,there was no increase in confusion or agitated behavior but some associated mild sedation. This occurred 9 days prior to current admission. He was transferred to [facility] and was discharged earlier todayhaving required no intervention. reports one week ago he became increasingly confused and agitated with persistent delirium. This got significantly worse in his ambulance ride from [place] to [facility] necessitating a transfer to our emergency room. He was extremely combative and apparently took several people to restrain him. he has been predisposed to narcotic withdrawal in Duragesic patcheshave come off with agitated behavior. He was due for a patch change with his patch was reportedly adherent.patient wasmildly agitated unable to communicate during her interview moving all extremities taking hissheets off and making weak attempts to get out of bed. Subjective/Events-last exam Patient opens eyes and sometimes will follow simple commands especially for his . She reports less agitated behavior and nursing staff confirm. Unable to obtain any history from the patient personally. Objective Exam Vital Signs Vital Signs Date Time Temp Pulse Resp B/P (MAP) Pulse Ox O2 Delivery O2 Flow Rate FiO2 03/06/18 17:12 97.5 85 18 186/85 (118) 93 Room Air 03/06/18 20:09 50.00 03/06/18 20:35 40 Capillary Refill : Less Than 3 Seconds General Appearance: No Apparent Distress, Chronically ill, Thin Respiratory: No Accessory Muscle Use, No Respiratory Distress, Other ( Scattered rhonchi noted no focal findings no wheezing) Cardiovascular: Regular Rate, Rhythm, No Edema, No Gallop, Other (2/6 systolic ejection murmur somewhat blowing heard best left lower sternal border) Gastrointestinal: Normal Bowel Sounds, No Organomegaly, Non Tender, Soft Results/Procedures Lab Laboratory Tests 03/11/18 03:45 Patient resulted labs reviewed. Assessment/Plan Assessment and Plan Assess & Plan/Chief Complaint Post traumatic right subdural hematoma and right frontal lobe contusion with hemorrhage. I suspect that CT findings are all old although a small recurrent intracerebral hemorrhage is still possible. 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 Patient still confused and minimally verbal but agitation has resolved will start to taper antipsychotic therapy starting with Geodon discontinuance. 2. Pulmonary edema currently chest is clear I suspect that this is improved significantly Neurocardiogenic edema is most likely although acute on chronic diastolic heart failure due to underlying hypertensive heart disease is in the differential. Continue to monitor see no need for diuretic therapy at this time. 3. Paroxysmal atrial fibrillation anticoagulant therapy being held due to number 1 4. 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 After discussion with his she is in agreement with DO NOT RESUSCITATE status which will be initiated. 5. History of coronary artery disease Critical Care Critical Care: Critically Ill Patient Clinical Quality Measures DVT/VTE Risk/Contraindication: Risk Factor Score Per Nursin RFS Level Per Nursing on Admit: 3=High GERRY JANE MD Mar 10, 2018 15:57
[2018-03-10 16:00] VITALS: BP 132/52
[2018-03-10] MEDS: LORazepam INJ 2 MG/ML (ATIVAN) VIAL IVP PRN (18:42)
[2018-03-10 20:00] VITALS: BP 148/61
[2018-03-10] MEDS: RIVASTIGMINE PATCH REMOVAL TP SCH (21:22)
[2018-03-10] MEDS: RIVASTIGMINE 13.3 MG/24 HR PATCH TD SCH (21:23)
[2018-03-11] VITALS: BP 138/72
[2018-03-11] MEDS: HYDROmorphone 2 MG/ML VIAL (DILAUDID) IVP PRN ×3 (02:12→10:31)
[2018-03-11 04:00] LABS: BASOPHILS % (AUTO) 0 % (0-10); EOSINOPHILS # (AUTO) 0.2 10^3/uL (0.0-0.3); EOSINOPHILS % (AUTO) 1 % (0-10); HEMATOCRIT 29 % (40-54); HEMOGLOBIN 9.6 G/DL (13.3-17.7); LYMPHOCYTES # (AUTO) 1.1 X 10^3 (1.0-4.0); LYMPHOCYTES % (AUTO) 8 % (12-44); MEAN CORPUSCULAR HEMOGLOBIN 32 PG (25-34); MEAN CORPUSCULAR HGB CONC 33 G/DL (32-36); MEAN CORPUSCULAR VOLUME 97 FL (80-99); MEAN PLATELET VOLUME 9.3 FL (7.4-10.4); MONOCYTES % (AUTO) 7 % (0-12); NEUTROPHILS # (AUTO) 11.8 X 10^3 (1.8-7.8); NEUTROPHILS % (AUTO) 84 % (42-75); PLATELET COUNT 290 10^3/uL (130-400); RED BLOOD COUNT 3.01 10^6/uL (4.35-5.85); RED CELL DISTRIBUTION WIDTH 13.9 % (10.0-14.5); WHITE BLOOD COUNT 14.2 10^3/uL (4.3-11.0)
[2018-03-11 04:18] LABS: BUN/CREATININE RATIO 23; CALCIUM 8.5 MG/DL (8.5-10.1); CARBON DIOXIDE 24 MMOL/L (21-32); CHLORIDE 104 MMOL/L (98-107); CREATININE SERUM 0.78 MG/DL (0.60-1.30); GFR ESTIMATED > 60; GLUCOSE 113 MG/DL (70-105); PHOSPHORUS 3.2 MG/DL (2.3-4.7); POTASSIUM 4.4 MMOL/L (3.6-5.0); SODIUM 137 MMOL/L (135-145)
[2018-03-11 04:19] VITALS: BP 133/54
[2018-03-11] MEDS: CATHETER FLUSH 10 ML SYR IV SCH ×3 (05:53→22:18)
[2018-03-11] MEDS: RT-ALBUTEROL/IPRATROPIUM 3 ML (DUONEB) VIAL INH SCH ×4 (07:45→20:48)
--- NOTE | 2018-03-11 07:53 | Diagnostic Imaging Report ---
INDICATION: Psychosis and agitation. COMPARISON: 03/10/2018. FINDINGS: Stable cardiomegaly with left pectoral transvenous pacemaker. Stable changes of CABG. Central vascular hazy opacities are unchanged. Left basilar heterogeneous consolidations are unchanged. No pleural effusion or pneumothorax. IMPRESSION: No adverse development since exam of prior day. Stable left basilar heterogeneous consolidations which may be due to atelectasis or pneumonia. Dictated by: Dictated on workstation # [id number]
[2018-03-11] MEDS ORDERED: PIPERACILLIN SODIUM/TAZOBACTAM 4.5 GM in NS (IVPB) 100 ML IV NR (08:00)
[2018-03-11] MEDS: SINEMET 25/100 (CARBIDOPA/LEVODOPA) TAB PO SCH ×3 (08:25→17:25)
[2018-03-11 08:30] VITALS: BP 163/65
[2018-03-11] MEDS: risperiDONE 1 MG (RisperDAL) TAB PO SCH ×2 (09:00→21:00)
[2018-03-11] MEDS: LEVETIRACETAM 500 MG (KEPPRA) TAB PO SCH ×2 (09:00→21:00)
--- NOTE | 2018-03-11 09:07 | Physical Therapy Progress Note ---
Therapy Progress Note No treatment rendered this date. Per Dr. Meek, discharge PT. He will notify therapy services if he feels further treatment is indicated. DC PT. NIMESH SHI PT Mar 11, 2018 09:07
--- NOTE | 2018-03-11 09:43 | Progress Note-Hospitalist ---
Subjective HPI/CC On Admission Date Seen by Provider: Mar 11, 2018 Time Seen by Provider: 08:00 Mr. John a frail 82-year-old white male with advanced Parkinson's diseas eand moderately advanced dementia who apparently fell at home striking his right for head. CT scanning in the emergency room revealed a right sub-ural hematomawith right intraparenchymal hemorrhage and likely contusion involving the frontal lobe. Initially according to his ,there was no increase in confusion or agitated behavior but some associated mild sedation. This occurred 9 days prior to current admission. He was transferred to [facility] and was discharged earlier todayhaving required no intervention. reports one week ago he became increasingly confused and agitated with persistent delirium. This got significantly worse in his ambulance ride from [place] to [facility] necessitating a transfer to our emergency room. He was extremely combative and apparently took several people to restrain him. he has been predisposed to narcotic withdrawal in Duragesic patcheshave come off with agitated behavior. He was due for a patch change with his patch was reportedly adherent.patient wasmildly agitated unable to communicate during her interview moving all extremities taking hissheets off and making weak attempts to get out of bed. Subjective/Events-last exam Patient opens eyes to verbal stimulation but is nonresponsive. Nursing staff report that he keeps his mouth closed and they're trying to get medications at times. His is able to get him to comply. No evidence for choking is noted with swallowing pills crushed and Jell-O. There is been increased loose cough with inability to bring up any sputum per and nursing staff. MAXIMUM TEMPERATURE 100 up from yesterday. Objective Exam Vital Signs Vital Signs Date Time Temp Pulse Resp B/P (MAP) Pulse Ox O2 Delivery O2 Flow Rate FiO2 03/06/18 17:12 97.5 85 18 186/85 (118) 93 Room Air 03/06/18 20:09 50.00 03/06/18 20:35 40 Capillary Refill : Less Than 3 Seconds General Appearance: No Apparent Distress, Chronically ill, Other Neck: Normal Inspection, Supple Respiratory: No Accessory Muscle Use, No Respiratory Distress, Other (Diffuse rhonchi much more prominent today than yesterday left greater than right with decreased breath sounds in the left base. No wheezing is noted.) Cardiovascular: Regular Rate, Rhythm, Systolic Murmur (2/6 left lower sternal border difficult to appreciated elsewhere secondary to pulmonary congestion.), Other (Trace extremity edema noted) Gastrointestinal: Normal Bowel Sounds, Non Tender, Soft Results/Procedures Lab Laboratory Tests 03/11/18 03:45 Patient resulted labs reviewed. Assessment/Plan Assessment and Plan Assess & Plan/Chief Complaint Post traumatic right subdural hematoma and right frontal lobe contusion with hemorrhage. I suspect that CT findings are all old although a small recurrent intracerebral hemorrhage is still possible. 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 Patient still confused and minimally verbal but agitation has resolved no exacerbation off of Geodon thus far. It is difficult to tell how much his baseline mental status is going to be negatively impacted by his frontal lobe contusion. 2. Pulmonary edema currently chest is clear I suspect that this is improved significantly Neurocardiogenic edema is most likely although acute on chronic diastolic heart failure due to underlying hypertensive heart disease is in the differential. Continue to monitor see no need for diuretic therapy at this time. 3. Paroxysmal atrial fibrillation anticoagulant therapy being held due to number 1 4. 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 After discussion with his she is in agreement with DO NOT RESUSCITATE status which will be initiated. 5. History of coronary artery disease 6. Progressive left lower lobe infiltrate increasing temperature and increasing white count are compatible with pneumonia hospital-acquired will initiate Zosyn. Had a long discussion with his about critical nature of his illness in individual who is quality of life had been declining due to Parkinson's and associated dementia prior to his fall with cerebral contusion. At this point we'll continue IV antibiotics. If condition deteriorates further discussed transfer to [facility] on hospice. A little over 30 minutes of care time spent thus far today. Critical Care Critical Care: Critically Ill Patient Clinical Quality Measures DVT/VTE Risk/Contraindication: Risk Factor Score Per Nursin RFS Level Per Nursing on Admit: 3=High GERRY JANE MD Mar 11, 2018 09:43
[2018-03-11 12:00] VITALS: BP 117/54
[2018-03-11] MEDS: PARoxetine 20 MG (PAXIL) TAB PO SCH (12:00)
[2018-03-11 16:00] VITALS: BP 94/57
[2018-03-11] MEDS: PIPERACILLIN SODIUM/TAZOBACTAM 4.5 GM in NS (IVPB) 100 ML IV SCH ×2 (16:42→22:18)
[2018-03-11 20:06] VITALS: BP 102/64
[2018-03-11] MEDS: RIVASTIGMINE 13.3 MG/24 HR PATCH TD SCH (21:55)
[2018-03-11] MEDS: RIVASTIGMINE PATCH REMOVAL TP SCH (21:56)
[2018-03-12] VITALS: BP 152/58
[2018-03-12 04:00] VITALS: BP 148/69
[2018-03-12 04:30] LABS: BASOPHILS % (AUTO) 0 % (0-10); EOSINOPHILS # (AUTO) 0.2 10^3/uL (0.0-0.3); EOSINOPHILS % (AUTO) 3 % (0-10); HEMATOCRIT 29 % (40-54); HEMOGLOBIN 9.4 G/DL (13.3-17.7); LYMPHOCYTES % (AUTO) 12 % (12-44); MEAN CORPUSCULAR HEMOGLOBIN 32 PG (25-34); MEAN CORPUSCULAR HGB CONC 33 G/DL (32-36); MEAN CORPUSCULAR VOLUME 97 FL (80-99); MEAN PLATELET VOLUME 9.4 FL (7.4-10.4); MONOCYTES # (AUTO) 0.8 X 10^3 (0.0-1.0); MONOCYTES % (AUTO) 10 % (0-12); NEUTROPHILS % (AUTO) 75 % (42-75); PLATELET COUNT 327 10^3/uL (130-400); RED BLOOD COUNT 2.98 10^6/uL (4.35-5.85); RED CELL DISTRIBUTION WIDTH 13.5 % (10.0-14.5); WHITE BLOOD COUNT 8.1 10^3/uL (4.3-11.0)
[2018-03-12 04:45] LABS: BUN/CREATININE RATIO 20; CALCIUM 8.6 MG/DL (8.5-10.1); CARBON DIOXIDE 25 MMOL/L (21-32); CHLORIDE 101 MMOL/L (98-107); CREATININE SERUM 0.88 MG/DL (0.60-1.30); GFR ESTIMATED > 60; GLUCOSE 89 MG/DL (70-105); MAGNESIUM 1.7 MG/DL (1.8-2.4); PHOSPHORUS 3.5 MG/DL (2.3-4.7); POTASSIUM 4.4 MMOL/L (3.6-5.0); SODIUM 137 MMOL/L (135-145)
[2018-03-12] MEDS: CATHETER FLUSH 10 ML SYR IV SCH ×3 (06:07→21:34)
[2018-03-12] MEDS: PIPERACILLIN SODIUM/TAZOBACTAM 4.5 GM in NS (IVPB) 100 ML IV SCH ×3 (06:07→21:34)
[2018-03-12 07:00] VITALS: BP 184/64
[2018-03-12] MEDS: RT-ALBUTEROL/IPRATROPIUM 3 ML (DUONEB) VIAL INH SCH ×4 (07:04→18:57)
--- NOTE | 2018-03-12 07:50 | Diagnostic Imaging Report ---
INDICATION: Pneumonia. TECHNIQUE: Single frontal view of the chest. COMPARISON: 03/11/2018 FINDINGS: Lung volumes are mildly low. There are patchy airspace opacities in the perihilar region in the lung bases bilaterally. There is diffuse interstitial opacity. There is mild cardiomegaly. The left-sided pacemaker lead is in stable position. Sternotomy wires and post CABG changes are noted. No pneumothorax is seen. There may be a small left pleural effusion. No acute osseous abnormality is seen. IMPRESSION: 1. Patchy airspace opacities and diffuse interstitial opacities appear mildly increased since the prior study. This may be due to edema or pneumonia. 2. Stable cardiomegaly. Dictated by: Dictated on workstation # [id number]
--- NOTE | 2018-03-12 08:36 | Progress Note-Hospitalist ---
Subjective HPI/CC On Admission Date Seen by Provider: Mar 12, 2018 Time Seen by Provider: 08:00 Mr. John a frail 82-year-old white male with advanced Parkinson's diseas eand moderately advanced dementia who apparently fell at home striking his right for head. CT scanning in the emergency room revealed a right sub-ural hematomawith right intraparenchymal hemorrhage and likely contusion involving the frontal lobe. Initially according to his ,there was no increase in confusion or agitated behavior but some associated mild sedation. This occurred 9 days prior to current admission. He was transferred to [facility] and was discharged earlier todayhaving required no intervention. reports one week ago he became increasingly confused and agitated with persistent delirium. This got significantly worse in his ambulance ride from [place] to [facility] necessitating a transfer to our emergency room. He was extremely combative and apparently took several people to restrain him. he has been predisposed to narcotic withdrawal in Duragesic patcheshave come off with agitated behavior. He was due for a patch change with his patch was reportedly adherent.patient wasmildly agitated unable to communicate during her interview moving all extremities taking hissheets off and making weak attempts to get out of bed. Subjective/Events-last exam Patient opens eyes and does track to voice but does not respond now. is the bedside and both she and nursing staff report no agitation. He does not appear to be in respiratory distress. No care concerns reported by staff except for little bit of erythema around the scrotum and buttocks without skin breakdown. Objective Exam Vital Signs Vital Signs Date Time Temp Pulse Resp B/P (MAP) Pulse Ox O2 Delivery O2 Flow Rate FiO2 03/06/18 17:12 97.5 85 18 186/85 (118) 93 Room Air 03/06/18 20:09 50.00 03/06/18 20:35 40 Capillary Refill : Less Than 3 Seconds General Appearance: No Apparent Distress, Chronically ill Respiratory: No Accessory Muscle Use, No Respiratory Distress, Other (Patient does exhibited Ravi-Lu respiratory pattern there is significantly less congestion than yesterday rales and rhonchi are noted in the left base and some diminished breath sounds in the right base no wheezing is noted.) Cardiovascular: Regular Rate, Rhythm, No Edema, No Gallop, No JVD, No Murmur Extremity: No Pedal Edema Results/Procedures Lab Laboratory Tests 03/12/18 04:05 Patient resulted labs reviewed. Assessment/Plan Assessment and Plan Assess & Plan/Chief Complaint Post traumatic right subdural hematoma and right frontal lobe contusion with hemorrhage. I suspect that CT findings are all old although a small recurrent intracerebral hemorrhage is still possible. 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 Patient still confused and minimally verbal but agitation has resolved no exacerbation off of Geodon thus far. It is difficult to tell how much his baseline mental status is going to be negatively impacted by his frontal lobe contusion. 2. Pulmonary edema currently chest is clear I suspect that this is improved significantly Neurocardiogenic edema is most likely although acute on chronic diastolic heart failure due to underlying hypertensive heart disease is in the differential. Continue to monitor see no need for diuretic therapy at this time. 3. Paroxysmal atrial fibrillation anticoagulant therapy being held due to number 1 4. 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 After discussion with his she is in agreement with DO NOT RESUSCITATE status which will be initiated. 5. History of coronary artery disease 6. Progressive left lower lobe infiltrate increasing temperature and increasing white count are compatible with pneumonia hospital-acquired on Zosyn with no respiratory distress. Overall prognosis still remains poor. We'll monitor [facility] after discussion with his . Would continue by mouth antibiotics. Critical Care Critical Care: Critically Ill Patient Clinical Quality Measures DVT/VTE Risk/Contraindication: Risk Factor Score Per Nursin RFS Level Per Nursing on Admit: 3=High GERRY JANE MD Mar 12, 2018 08:36
[2018-03-12] MEDS: SINEMET 25/100 (CARBIDOPA/LEVODOPA) TAB PO SCH ×3 (11:01→18:48)
[2018-03-12] MEDS: PARoxetine 20 MG (PAXIL) TAB PO SCH (14:21)
[2018-03-12 16:40] VITALS: BP 168/70
[2018-03-12] MEDS: RIVASTIGMINE 13.3 MG/24 HR PATCH TD SCH (20:14)
[2018-03-12 20:18] VITALS: BP 138/63
[2018-03-12] MEDS: RIVASTIGMINE PATCH REMOVAL TP SCH (20:18)
[2018-03-12] MEDS: MENTHOL/ZINC OXIDE (CALMOSEPTINE) 113 GM TUBE TOP SCH (20:20)
[2018-03-12 23:57] VITALS: BP 176/84
[2018-03-13 04:04] VITALS: BP 170/72
[2018-03-13] MEDS: RT-ALBUTEROL/IPRATROPIUM 3 ML (DUONEB) VIAL INH SCH ×3 (07:03→19:47)
[2018-03-13] MEDS: PIPERACILLIN SODIUM/TAZOBACTAM 4.5 GM in NS (IVPB) 100 ML IV SCH ×2 (07:23→15:54)
[2018-03-13] MEDS: SINEMET 25/100 (CARBIDOPA/LEVODOPA) TAB PO SCH ×3 (07:23→17:50)
[2018-03-13] MEDS: CATHETER FLUSH 10 ML SYR IV SCH ×3 (07:25→21:37)
[2018-03-13] MEDS ORDERED: SENN-145 PO (07:58)
[2018-03-13 08:00] VITALS: BP 175/76
[2018-03-13] MEDS ORDERED: ALPR1TAB7 PO (08:03)
[2018-03-13] MEDS ORDERED: CEFD300C3 PO (08:26)
[2018-03-13] MEDS: MENTHOL/ZINC OXIDE (CALMOSEPTINE) 113 GM TUBE TOP SCH ×2 (08:45→21:37)
[2018-03-13] MEDS ORDERED: FENT1PAT11 TD (08:55)
--- NOTE | 2018-03-13 08:57 | Discharge Summary-Hospitalist ---
Diagnosis/Chief Complaint Date of Admission Mar 06, 2018 at 19:35 Date of Discharge Discharge Date: Mar 14, 2018 Discharge Time: 11:00 Admission Diagnosis 1. Post traumatic right subdural hematoma and right frontal lobe contusion with hemorrhage. I suspect that CT findings are all old although a small recurrent intracerebral hemorrhage is still possible. 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 2. Pulmonary edema currently chest is clear I suspect that this is improved significantly Neurocardiogenic edema is most likely although acute on chronic diastolic heart failuredue to underlying hypertensive heart disease is in the differential. Continue to monitor see no need for diuretic therapy at this time. 3. Paroxysmal atrial fibrillation anticoagulant therapy being held due to number 1 4. 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 After discussion with his she is in agreement with DO NOT RESUSCITATE status which will be initiated. 5. History of coronary artery disease. 6. Pneumonia doubtful there is no history laboratory findings or physical exam findings to suggest pneumonia at this time we'll discontinue meropenem. Discharge Diagnosis Post traumatic right subdural hematoma and right frontal lobe contusion with hemorrhage. I suspect that CT findings are all old although a small recurrent intracerebral hemorrhage is still possible. 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 Patient still confused and minimally verbal but agitation has resolved no exacerbation off of Geodon thus far. It is difficult to tell how much his baseline mental status is going to be negatively impacted by his frontal lobe contusion. 2. Pulmonary edema currently chest is clear I suspect that this is improved significantly Neurocardiogenic edema is most likely although acute on chronic diastolic heart failure due to underlying hypertensive heart disease is in the differential. Continue to monitor see no need for diuretic therapy at this time. 3. Paroxysmal atrial fibrillation anticoagulant therapy being held due to number 1 4. 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 After discussion with his she is in agreement with DO NOT RESUSCITATE status which will be initiated. 5. History of coronary artery disease 6. Progressive left lower lobe infiltrate increasing temperature and increasing white count are compatible with pneumonia hospital-acquired on Zosyn with no respiratory distress. Overall prognosis still remains poor. We'll monitor overnight possible transfer to [facility] with hospice after discussion with his . Would continue by mouth antibiotics. Discharge Summary Discharge Physical Exam Allergies: Coded Allergies: gabapentin (Verified Allergy, Unknown, 02/27/17) morphine (Verified Allergy, Unknown, PT TAKES HYDROCODONE @ HOME, 02/27/17) Vitals & I&Os Vital Signs Date Time Temp Pulse Resp B/P (MAP) Pulse Ox O2 Delivery O2 Flow Rate FiO2 03/14/18 11:56 97.7 60 18 129/63 (85) 95 Room Air 03/13/18 12:00 3.00 General Appearance: No Acute Distress Respiratory: Other (Decreased breath sounds left base) Cardiovascular: Regular Rate, Normal S1, Normal S2 Hospital Course after evaluation on the as per above I had planned on discharging the the . She will be kept overnight with plan discharge tomorrow. In discussion with the patient's discharge planning care time spent including discharge medication reconciliation. Labs (last 24 hrs) Microbiology 03/07/18 MRSA Screen - Final, Complete MRSA not isolated Patient resulted labs reviewed. Discussion & Recommendations Discharge Planning: >30 minutes discharge planning Discharge Home Medications: Active Scripts Active Nystatin 15 Gm Oint...g. 15 Gm TP BID 14 Days APPLY BID TO BUTTOCKS AND SCROTUM Lorazepam Intensol (Lorazepam) 2 Mg/1 Ml Oral.conc 2 Mg PO Q2H PRN Fentanyl Patch 100 MCG (Fentanyl) 1 Each Patch.td72 100 Mcg TD Q72H 30 Days Cefdinir 300 Mg Capsule 300 Mg PO BID 5 Days Senna S Tablet (Sennosides/Docusate Sodium) 1 Each Tablet 1 Each PO BID Reported Sinemet 25-100 mg Tablet (Carbidopa/Levodopa) 1 Each Tablet 1.5 Tab PO TIDWM Tramadol HCl 50 Mg Tablet 50 Mg PO Q6H PRN Keppra (Levetiracetam) 500 Mg Tablet 500 Mg PO BID Amlodipine Besylate 5 Mg Tablet 5 Mg PO DAILY Paroxetine HCl 40 Mg Tablet 40 Mg PO 1200 Benzonatate 200 Mg Capsule 200 Mg PO TID PRN Nitroglycerin 0.4 Mg Tab.subl 0.4 Mg SL UD PRN Tamsulosin HCl 0.4 Mg Cap.er.24h 0.4 Mg PO HS Pantoprazole Sodium 40 Mg Tablet.dr 40 Mg PO DAILY Rivastigmine 1 Each Patch.td24 13.3 Mg TD HS Instructions to patient/family Please see electronic discharge instructions given to patient. Clinical Quality Measures DVT/VTE Risk/Contraindication: Risk Factor Score Per Nursin RFS Level Per Nursing on Admit: 3=High GERRY JANE MD Mar 13, 2018 08:57
--- NOTE | 2018-03-13 09:09 | Physician Query Clarification ---
PQ-Uncertain Diagnosis Admission/Discharge Admission Date: Mar 06, 2018 at 19:35 Discharge Date: The medical record reflects the following clinical scenario: History/Risk Factors: History of fall with subdural hematoma and right frontal lobe contusion with hemorrhage. Clinical Findings: CT Head-Impression: Mixed density subdural hematoma does suggest there has been a small amount of new hemorrhage though the overall volume of the subdural fluid has decreased. The dense parenchymal hemorrhage right frontal lobe appears unchanged. This does raise concern for possible underlying malignancy versus recurrent small bleed into the same region. There is no mass effect. Treatment:IV Fluids,Geodon Injection, IV Ativan Question: Was a recurrent intracerebral hemorrhage ruled in or out after study? Please document a response below. PHYSICIAN RESPONSE Diagnosis clinically valid: No, conditon ruled out In responding to this query, please exercise your independent professional judgment. The purpose of this communication is to more accurately reflect the complexity of your patients condition. The fact that a question is asked does not imply that any particular answer is desired or expected. Thank you for your timely response to this clarification. Requestors name: Robyn Hutchison [facility] Phone # ext [phone] or [phone] THIS PHYSICIAN QUERY FORM IS A PERMANENT PART OF THE MEDICAL RECORD ROBYN HUTCHISON Mar 13, 2018 09:09 GERRY JANE MD Mar 14, 2018 12:16
--- NOTE | 2018-03-13 09:22 | Physician Query Clarification ---
PQ-Intro New Diagnosis Admission/Discharge Admission Date: Mar 06, 2018 at 19:35 Discharge Date: The medical record reflects the following clinical scenario: History/Risk Factors: History of fall with a right subdural hematoma with right intraparenchymal hemorrhage and likely contusion involving the frontal lobe. Parkinson's disease with dementia Clinical Findings: Increased confusion, agitation and persistent delirium. Treatment: Injection, Geodon, IV Ativan, Haldol injection. Question: What condition was responsible for the admitting symptoms of persistent delirium, increased confusion and agitation? Please document below. 1. Sequela of previous (recent) subdural hematoma injury. 2. Parkinson's disease with dementia with behavior disturbance. 3. Both number 1 and number 2. 4. Other, with explanation of the clinical findings. 4. Clinically undetermined, no explanation for the clinical findings. PHYSICIAN RESPONSE What condition reflects above: 2 In responding to this query, please exercise your independent professional judgment. The purpose of this communication is to more accurately reflect the complexity of your patients condition. The fact that a question is asked does not imply that any particular answer is desired or expected. Thank you for your timely response to this clarification. Requestors name: Robyn Hutchison [facility] Phone # ext [phone] or [phone] THIS PHYSICIAN QUERY FORM IS A PERMANENT PART OF THE MEDICAL RECORD ROBYN HUTCHISON Mar 13, 2018 09:22 GERRY JANE MD Mar 14, 2018 12:17
--- NOTE | 2018-03-13 09:34 | Physician Query Clarification ---
PQ-Further Specificity Admission/Discharge Admission Date: Mar 06, 2018 at 19:35 Discharge Date: The medical record reflects the following clinical scenario: History/Risk Factors: History of injury with subdural hematoma and right frontal lobe contusion with hemorrhage. Clinical Findings: Pulmonary edema listed as diagnosis on your H&P. Treatment: 40 mg IVP lasix Question: Can you further specify Pulmonary Edema per the clinical indicators above? Please document below. 1. Acute Pulmonary Edema. 2. Chronic Pulmonary Edema. 3. Acute on chronic diastolic CHF secondary to underlying Hypertensive Heart Disease. 4. Other, with explanation of the clinical findings. 5. Clinically undetermined, no explanation for the clinical findings. PHYSICIAN RESPONSE Can you specify per above: Other, explanation/clinical finding Explanation/Clinical Findings acute pulmonary edema of neurogenic etiology due to cerebral contusion and subdural In responding to this query, please exercise your independent professional judgment. The purpose of this communication is to more accurately reflect the complexity of your patients condition. The fact that a question is asked does not imply that any particular answer is desired or expected. Thank you for your timely response to this clarification. Requestors name: Robyn Hutchison [facility] Phone # ext [phone] or [phone] THIS PHYSICIAN QUERY FORM IS A PERMANENT PART OF THE MEDICAL RECORD ROBYN HUTCHISON Mar 13, 2018 09:34 GERRY JANE MD Mar 14, 2018 12:19
[2018-03-13 12:00] VITALS: BP 152/70
[2018-03-13] MEDS: LORazepam INJ 2 MG/ML (ATIVAN) VIAL IVP PRN (12:56)
[2018-03-13] MEDS: PARoxetine 20 MG (PAXIL) TAB PO SCH (12:59)
[2018-03-13 15:57] VITALS: BP 143/64
[2018-03-13] MEDS: [UNRECOGNIZED DRUG - REMARK] TP SCH (16:04)
[2018-03-13] MEDS: fentaNYL PATCH 100 MCG (DURAGESIC) TD SCH (16:04)
[2018-03-13 19:58] VITALS: BP 166/64
[2018-03-13] MEDS: RIVASTIGMINE PATCH REMOVAL TP SCH (21:36)
[2018-03-13] MEDS: RIVASTIGMINE 13.3 MG/24 HR PATCH TD SCH (21:36)
[2018-03-13] MEDS: HYDROmorphone 2 MG/ML VIAL (DILAUDID) IVP PRN (21:46)
[2018-03-14] VITALS: BP 134/63
[2018-03-14] MEDS: PIPERACILLIN SODIUM/TAZOBACTAM 4.5 GM in NS (IVPB) 100 ML IV SCH ×2 (00:02→08:35)
[2018-03-14 03:39] VITALS: BP 119/59
[2018-03-14] MEDS: SINEMET 25/100 (CARBIDOPA/LEVODOPA) TAB PO SCH ×2 (06:20→12:22)
[2018-03-14] MEDS: CATHETER FLUSH 10 ML SYR IV SCH (06:20)
[2018-03-14 07:26] VITALS: BP 155/67
[2018-03-14] MEDS: RT-ALBUTEROL/IPRATROPIUM 3 ML (DUONEB) VIAL INH SCH (07:31)
[2018-03-14] MEDS: MENTHOL/ZINC OXIDE (CALMOSEPTINE) 113 GM TUBE TOP SCH (08:38)
[2018-03-14] MEDS ORDERED: LORA2ORA PO (09:09)
[2018-03-14] MEDS ORDERED: HYDR1LIQ3 PO (09:36)
[2018-03-14] MEDS ORDERED: NYST15OI13 TP (10:34)
[2018-03-14] MEDS: LORazepam INJ 2 MG/ML (ATIVAN) VIAL IVP PRN (11:02)
[2018-03-14 11:56] VITALS: BP 129/63
[2018-03-14] MEDS: PARoxetine 20 MG (PAXIL) TAB PO SCH (12:23)
--- NOTE | 2018-03-14 12:55 | Discharge Summary-Hospitalist ---
Diagnosis/Chief Complaint Date of Admission Mar 06, 2018 at 19:35 Date of Discharge Discharge Date: Mar 14, 2018 Discharge Time: 1100 Admission Diagnosis 1. Post traumatic right subdural hematoma and right frontal lobe contusion with hemorrhage. I suspect that CT findings are all old although a small recurrent intracerebral hemorrhage is still possible. 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 2. Pulmonary edema currently chest is clear I suspect that this is improved significantly Neurocardiogenic edema is most likely although acute on chronic diastolic heart failuredue to underlying hypertensive heart disease is in the differential. Continue to monitor see no need for diuretic therapy at this time. 3. Paroxysmal atrial fibrillation anticoagulant therapy being held due to number 1 4. 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 After discussion with his she is in agreement with DO NOT RESUSCITATE status which will be initiated. 5. History of coronary artery disease. 6. Pneumonia doubtful there is no history laboratory findings or physical exam findings to suggest pneumonia at this time we'll discontinue meropenem. Discharge Diagnosis Post traumatic right subdural hematoma and right frontal lobe contusion with hemorrhage. I suspect that CT findings are all old although a small recurrent intracerebral hemorrhage is still possible. 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 Patient still confused and minimally verbal but agitation has resolved no exacerbation off of Geodon thus far. It is difficult to tell how much his baseline mental status is going to be negatively impacted by his frontal lobe contusion. 2. Pulmonary edema currently chest is clear I suspect that this is improved significantly Neurocardiogenic edema is most likely although acute on chronic diastolic heart failure due to underlying hypertensive heart disease is in the differential. Continue to monitor see no need for diuretic therapy at this time. 3. Paroxysmal atrial fibrillation anticoagulant therapy being held due to number 1 4. 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 After discussion with his she is in agreement with DO NOT RESUSCITATE status which will be initiated. 5. History of coronary artery disease 6. Progressive left lower lobe infiltrate increasing temperature and increasing white count are compatible with pneumonia hospital-acquired on Zosyn with no respiratory distress. Overall prognosis still remains poor. We'll monitor overnight possible transfer to [facility] with hospice after discussion with his . Would continue by mouth antibiotics. Discharge Summary Discharge Physical Exam Allergies: Coded Allergies: gabapentin (Verified Allergy, Unknown, 02/27/17) morphine (Verified Allergy, Unknown, PT TAKES HYDROCODONE @ HOME, 02/27/17) Vitals & I&Os Vital Signs Date Time Temp Pulse Resp B/P (MAP) Pulse Ox O2 Delivery O2 Flow Rate FiO2 03/14/18 11:56 97.7 60 18 129/63 (85) 95 Room Air 03/13/18 12:00 3.00 General Appearance: Other (Eyes open oor he and status sound minimal communication) Respiratory: Other (Decreased breath sounds in left ba) Cardiovascular: Regular Rate, Normal S1, Normal S2 Hospital Course Mr. John a frail 82-year-old white male with advanced Parkinson's diseaseand moderately advanced dementia who apparently fell at home striking his right for head. CT scanning in the emergency room revealed a right sub- ural hematomawith right intraparenchymal hemorrhage and likely contusion involving the frontal lobe. Initially according to his ,there was no increase in confusion or agitated behavior but some associated mild sedation. This occurred 9 days prior to current admission. He was transferred to [facility] and was discharged earlier todayhaving required no intervention. reports one week ago he became increasingly confused and agitated with persistent delirium. This got significantly worse in his ambulance ride from [place] to [facility] necessitating a transfer to our emergency room. He was extremely combative and apparently took several people to restrain him. he has been predisposed to narcotic withdrawal in [place] patcheshave come off with agitated behavior. He was due for a patch change with his patch was reportedly adherent.patient was mildly agitated unable to communicate during her interview moving all extremities taking hissheets off and making weak attempts to get out of bed. Hospital course: Due to significant agitation patient was admitted to the intensive care unit. He was minimally responsive for the first several days. CT findings were discussed with Dr. Aguiar the neurosurgeon who had been following his case. hhe felt reported findings were likely old and not indicative of rebleeding. Chest x-ray revealed findings compatible with pulmonary edema and he did receive 1 dose of IV Lasix. His blood pressure nor heart rate were elevated and I suspect this was on a neurogenic pulmonary edema basis from his head injury. He did develop fever with elevated white count and left lower lobe consolidative findings compatible with hospital acquired pneumonia. Zosyn was initiated with normalization of white count and improvement in congestion. He was switched to oral Omnicef. There was some improvement in mental status with the patient being able to take in by mouth food and fluids without evidence for aspiration. After discussion with his considering his poor premorbid physical and mental condition due to advanced Parkinson's all are in agreement at this time for transfer to custodial at [facility] on hospice. Labs (last 24 hrs) Microbiology 03/07/18 MRSA Screen - Final, Complete MRSA not isolated Patient resulted labs reviewed. Discussion & Recommendations Discharge Planning: >30 minutes discharge planning Discharge Home Medications: Active Scripts Active Nystatin 15 Gm Oint...g. 15 Gm TP BID 14 Days APPLY BID TO BUTTOCKS AND SCROTUM Lorazepam Intensol (Lorazepam) 2 Mg/1 Ml Oral.conc 2 Mg PO Q2H PRN Fentanyl Patch 100 MCG (Fentanyl) 1 Each Patch.td72 100 Mcg TD Q72H 30 Days Cefdinir 300 Mg Capsule 300 Mg PO BID 5 Days Senna S Tablet (Sennosides/Docusate Sodium) 1 Each Tablet 1 Each PO BID Reported Sinemet 25-100 mg Tablet (Carbidopa/Levodopa) 1 Each Tablet 1.5 Tab PO TIDWM Tramadol HCl 50 Mg Tablet 50 Mg PO Q6H PRN Keppra (Levetiracetam) 500 Mg Tablet 500 Mg PO BID Amlodipine Besylate 5 Mg Tablet 5 Mg PO DAILY Paroxetine HCl 40 Mg Tablet 40 Mg PO 1200 Benzonatate 200 Mg Capsule 200 Mg PO TID PRN Nitroglycerin 0.4 Mg Tab.subl 0.4 Mg SL UD PRN Tamsulosin HCl 0.4 Mg Cap.er.24h 0.4 Mg PO HS Pantoprazole Sodium 40 Mg Tablet.dr 40 Mg PO DAILY Rivastigmine 1 Each Patch.td24 13.3 Mg TD HS Instructions to patient/family Please see electronic discharge instructions given to patient. Clinical Quality Measures DVT/VTE Risk/Contraindication: Risk Factor Score Per Nursin RFS Level Per Nursing on Admit: 3=High Copy Copies To 1: GERRY JANE MD, MARK D MD Mar 14, 2018 12:55
[2018-03-14 14:30] VITALS: BP 129/63
== END 2018-03-14 14:33 | disposition hospice, home (50) | DRG 56 ==
LOC: EDUNIT# 17:12 → ER 17:15 → ICU 19:35 → 4TH 03-12 12:15
PROVIDERS: ADMIT Family Medicine; ATTEND Family Medicine
DX: G20 Parkinson's disease (principal); F02.81 Dementia in other diseases classified elsewhere, unspecified severity, with behavioral disturbance; R41.0 Disorientation, unspecified; J81.0 Acute pulmonary edema; S06.5X9S Traumatic subdural hemorrhage with loss of consciousness of unspecified duration, sequela; J18.9 Pneumonia, unspecified organism; I10 Essential (primary) hypertension; Z66 Do not resuscitate; I48.0 Paroxysmal atrial fibrillation; I25.10 Atherosclerotic heart disease of native coronary artery without angina pectoris; I25.2 Old myocardial infarction; F41.9 Anxiety disorder, unspecified; R32 Unspecified urinary incontinence; E78.00 Pure hypercholesterolemia, unspecified; M19.91 Primary osteoarthritis, unspecified site; M48.00 Spinal stenosis, site unspecified; R25.2 Cramp and spasm; H91.90 Unspecified hearing loss, unspecified ear; K21.9 Gastro-esophageal reflux disease without esophagitis; K59.09 Other constipation; I65.29 Occlusion and stenosis of unspecified carotid artery; Z87.891 Personal history of nicotine dependence; Z95.0 Presence of cardiac pacemaker; Z95.1 Presence of aortocoronary bypass graft; Z87.11 Personal history of peptic ulcer disease; W19.XXXS Unspecified fall, sequela
CPT/HCPCS: 36415; 51701; 51702; 70450; 71045; 80048; 80053; 81000; 82805; 83735; 83880; 84100; 85025; 85610; 85730; 87081; 94640; 94660; 94760; 96372; 96374; 96375; 96376